=== PATIENT | female | born 1975 | race Two or more races ===

== ENCOUNTER 2017-02-16 15:58 | Emergency (ER) | payer MEDICAID ==
[~2017-02-16] VITALS: Ht 167.6 cm; Wt 111.1 kg
[2017-02-16] MEDS ORDERED: SODIUM CHLORIDE 0.9% 1,000 ML IV ONE ×3 (16:28→19:00)
[2017-02-16 16:45] LABS: Basophils # (auto) 0 uL; Basophils % (auto) 0.4 % (0.0-2.0); Eosinophils # (auto) 0.2 uL; Eosinophils % (auto) 2.9 % (0.0-7.0); Hematocrit 43.1 % (36.0-46.0); Hemoglobin 14.5 g/dL (12.2-16.2); Lymphocytes # (auto) 1.8 uL; Lymphocytes % (auto) 26.1 % (10.0-50.0); Mean Corpuscular Hemoglobin 27.7 pg (28.0-32.0); Mean Corpuscular Hgb Conc. 33.6 g/dL (32.0-36.0); Mean Corpuscular Volume 82.6 fL (80.0-100.0); Mean Platelet Volume 8.1 fL (7.4-10.4); Monocytes # (auto) 0.7 uL; Monocytes % (auto) 9.5 % (0.0-12.0); Neutrophils # (auto) 4.3 uL; Neutrophils % (auto) 61.1 % (37.0-80.0); Platelet Count (auto) 274 10^3/uL (140-450); Red Cell Distribution Width 14.5 % (11.6-16.0); White Blood Cell 7.1 10^3/uL (4.4-10.8)
[2017-02-16 17:08] LABS: Albumin 3.4 g/dL (3.4-5.0); Alkaline Phosphatase 115 U/L (45-117); Anion Gap 9 (5-15); Aspartate Aminotransferase 7 U/L (15-37); BUN/Creatinine Ratio 19.8; Bilirubin, Total 0.4 mg/dL (0.2-1.0); Blood Urea Nitrogen 18 mg/dL (7-18); Calcium 8.5 mg/dL (8.5-10.1); Carbon Dioxide 27 mmol/L (21-32); Chloride 94 mmol/L (98-107); GFR African American 89 mL/min; GFR Non-African American 73 mL/min; Potassium 4.1 mmol/L (3.5-5.1); Sodium 130 mmol/L (136-145); Total Protein 7.3 g/dL (6.4-8.2)
[2017-02-16 17:26] LABS: Glucose 662 mg/dL (74-106)
[2017-02-16] MEDS ORDERED: InsuLIN REG 1unit/0.01ml Soln (100units/ml) IV ONE (18:30)
[2017-02-16] MEDS ORDERED: MORPHINE SULF INJ 2 MG/ML SYRINGE 1ML IV PRN (18:45)
[2017-02-16] MEDS ORDERED: ACETAMINOPHEN 500 MG TAB PO PRN (18:45)
[2017-02-16] MEDS ORDERED: DEXTROSE (50%) 50ML SYRG IV PRN (18:45)
[2017-02-16] MEDS ORDERED: SODIUM CHLORIDE 0.9% 1,000 ML IV SCH (18:45)
[2017-02-16] MEDS ORDERED: LACTULOSE 20Gm/30ML SOLN PO PRN (18:45)
[2017-02-16] MEDS ORDERED: HYDROcodone-ACET 5/325MG TAB PO PRN (18:45)
[2017-02-16] MEDS ORDERED: TEMAZEPAM 15 MG CAP PO PRN (18:45)
[2017-02-16] MEDS ORDERED: PROMETHAZINE HCL 25 MG/ML 1ML IV PRN (18:45)
[2017-02-16] MEDS ORDERED: LORazepam 0.5 MG TAB PO PRN (18:45)
[2017-02-16] MEDS ORDERED: NITROGLYCERIN 0.4 MG SL TAB SL PRN (18:45)
[2017-02-16 19:27] LABS: Amylase 27 U/L (25-115)
[2017-02-16] MEDS ORDERED: ACCU-CHEK COMFORT CURVE STRIP VI SCH (20:00)
[2017-02-16] MEDS ORDERED: InsuLIN REG 1unit/0.01ml Soln (100units/ml) SC SCH (20:00)
[2017-02-16] MEDS: MORPHINE SULF INJ 2 MG/ML SYRINGE 1ML IV PRN ×2 (20:18→20:50)
[2017-02-16] MEDS ORDERED: ENOXAPARIN SOD 40 MG/0.4 ML SYRINGE SC SCH (21:00)
[2017-02-16 21:04] VITALS: BP 126/69
[2017-02-17] MEDS ORDERED: PANTOPRAZOLE 40 MG TAB PO SCH (10:00)
== END 2017-02-16 22:10 | disposition left against medical advice (07) ==
LOC: ER 16:04
DX: E11.65 Type 2 diabetes mellitus with hyperglycemia (principal); E66.9 Obesity, unspecified; Z68.35 Body mass index [BMI] 35.0-35.9, adult; G25.81 Restless legs syndrome; F12.10 Cannabis abuse, uncomplicated; J45.909 Unspecified asthma, uncomplicated; I11.0 Hypertensive heart disease with heart failure; I50.9 Heart failure, unspecified; K21.9 Gastro-esophageal reflux disease without esophagitis; R42 Dizziness and giddiness; Z79.4 Long term (current) use of insulin; Z87.442 Personal history of urinary calculi
CPT/HCPCS: 36415; 71010; 80053; 80320; 82010; 82150; 82962; 83036; 83690; 83735; 84443; 84702; 85025; 85652; 93005; 94761; 96361; 96372; 96374; 96375; 99285; J1650; J1815; J2270; J7030

== ENCOUNTER 2017-03-03 20:05 | Emergency (ER) | payer MEDICAID ==
[~2017-03-03] VITALS: Ht 167.6 cm; Wt 108.9 kg
[2017-03-03 20:22] VITALS: BP 134/96
== END 2017-03-03 22:29 | disposition left against medical advice (07) ==
LOC: ER 20:17
DX: L02.31 Cutaneous abscess of buttock (principal); R73.9 Hyperglycemia, unspecified; Z53.21 Procedure and treatment not carried out due to patient leaving prior to being seen by health care provider

== ENCOUNTER 2020-07-25 03:26 | Inpatient (IN) | payer MEDICAID ==
[~2020-07-25] VITALS: Ht 167.6 cm; Wt 102.5 kg
[~2020-07-25 03:26] MED LIST: ALBU2TAB4 PO; METF-370 PO
[2020-07-25 05:06] LABS: Urine Bacteria MOD /hpf (None Seen); Urine Blood 1+ /uL (Negative); Urine Budding Yeast FEW /hpf (None Seen); Urine Specific Gravity 1.032 (1.001-1.035); Urine WBC 40 /hpf (0 - 5)
[2020-07-25] MEDS ORDERED: KETOROLAC TROMETH 30 MG/ML 1ML VIAL IV ONE (05:30)
[2020-07-25] MEDS ORDERED: InsuLIN REG 1unit/0.01ml Soln (100units/ml) IV ONE ×2 (05:30→08:30)
[2020-07-25] MEDS ORDERED: SODIUM CHLORIDE 0.9% 1,000 ML IVB ONE (05:30)
[2020-07-25] MEDS ORDERED: FLUCONAZOLE 200MG/100ML 100 ML IV ONE (05:30)
[2020-07-25] MEDS ORDERED: LORazepam 2MG/ML-1ML VIAL IV ONE (06:00)
[2020-07-25 06:45] LABS: Basophils # (auto) 0 10 ^3/uL (0-0.2); Basophils % (auto) 0.5 % (0.0-2.0); Eosinophils # (auto) 0.2 10 ^3/uL (0-0.8); Eosinophils % (auto) 1.8 % (0.0-7.0); Hemoglobin 15.4 g/dL (12.2-16.2); Lymphocytes # (auto) 1.8 10 ^3/uL (0.4-5.4); Lymphocytes % (auto) 20.4 % (10.0-50.0); Mean Corpuscular Hemoglobin 27.4 pg (28.0-32.0); Mean Corpuscular Hgb Conc. 33.4 g/dL (32.0-36.0); Mean Corpuscular Volume 82.1 fL (80.0-100.0); Monocytes # (auto) 0.6 10 ^3/uL (0-1.3); Monocytes % (auto) 6.6 % (0.0-12.0); Neutrophils # (auto) 6.2 10 ^3/uL (1.6-8.6); Neutrophils % (auto) 70.7 % (37.0-80.0); Nucleated Red Blood Cells % 0.1 %; Platelet Count (auto) 332 10^3/uL (140-450); Red Cell Distribution Width 14.1 % (11.8-14.3); White Blood Cell 8.8 10^3/uL (4.4-10.8)
[2020-07-25 07:03] LABS: Albumin 3.4 g/dL (3.4-5.0); Calcium 8.8 mg/dL (8.5-10.1); Magnesium 2.3 mg/dL (1.6-2.6); Potassium 4.2 mmol/L (3.5-5.1)
[2020-07-25 07:05] LABS: BUN/Creatinine Ratio 22.4
[2020-07-25 07:09] LABS: Bilirubin, Total 0.4 mg/dL (0.2-1.0); Total Protein 8.2 g/dL (6.4-8.2)
[2020-07-25] MEDS ORDERED: cefTRIAXone 1GM/50ML D5W 50 ML IV ONE (08:30)
[2020-07-25] MEDS ORDERED: ACETAMINOPHEN 500 MG TAB PO PRN (09:00)
[2020-07-25] MEDS ORDERED: ONDANSETRON HCL 4 MG/2 ML VIAL IV PRN (09:00)
[2020-07-25] MEDS ORDERED: MORPHINE SULF INJ 2 MG/ML SYRINGE 1ML IV PRN (09:00)
[2020-07-25] MEDS ORDERED: DEXTROSE (50%) 50ML SYRG IV PRN (09:00)
[2020-07-25] MEDS ORDERED: HYDROcodone-ACET 5/325MG TAB PO PRN (09:00)
[2020-07-25] MEDS ORDERED: NITROGLYCERIN 0.4 MG SL TAB SL PRN (09:00)
[2020-07-25] MEDS: INSULIN LANTUS (GLARGINE) 1 /0.01ml (100units/ml) SC SCH (10:52)
[2020-07-25] MEDS: SODIUM CHLORIDE 0.9% 1,000 ML IV SCH ×2 (10:55→20:43)
[2020-07-25] MEDS: FAMOTIDINE 20 MG TAB PO SCH (10:57)
[2020-07-25] MEDS: InsuLIN REG 1unit/0.01ml Soln (100units/ml) SC SCH ×3 (13:16→20:42)
[2020-07-25] MEDS: ACCU-CHEK COMFORT CURVE STRIP VI SCH ×3 (16:00→20:42)
--- NOTE | 2020-07-25 17:06 | NUR ---
Telemetry admit from ER BRITTANY RITCHIE admitted to Telemetry unit after SBAR received. Patient oriented to Preeti Lazaro, primary RN, unit, room, bed, and unit policies regarding patient care and visiting hours. Patient weighed by bedscale and encouraged to call if they need something. She is A & O x4, sleepy at this time. Patient states that she has "vaginal pain". Will medicate per orders. All questions and concerns addressed, patient verbalized understanding. Bed is in lowest, locked position call light in reach.
--- NOTE | 2020-07-25 19:06 | NUR ---
Opening Shift Note Assumed care of patient after receiving report. Patient is asleep, aroused to name and light shaking, alert with no S/S of distress or SOB, c/o pain in vaginal area, will medicate according to MD orders.. Call light within reach, HOB semi fowlers, bed in lowest locked position x2 side rails. Instructed on POC and to call for assist PRN, will continue to monitor for changes Q1hr and PRN.
[2020-07-25] MEDS: MORPHINE SULF INJ 2 MG/ML SYRINGE 1ML IV PRN (20:43)
[2020-07-25 22:00] VITALS: BP 115/70
[2020-07-26] MEDS: ACCU-CHEK COMFORT CURVE STRIP VI SCH ×7 (00:25→23:32)
[2020-07-26] MEDS: InsuLIN REG 1unit/0.01ml Soln (100units/ml) SC SCH ×7 (00:28→23:38)
--- NOTE | 2020-07-26 01:00 | NUR ---
Scheduled IVF not given at this time, current bag still being administered with approximately 600 ml remaining. Addendum: 07/26/20 at 0445 by Janel More RN IVF administered at this time.
[2020-07-26] MEDS: MORPHINE SULF INJ 2 MG/ML SYRINGE 1ML IV PRN ×5 (04:00→23:15)
--- NOTE | 2020-07-26 04:00 | NUR ---
Pain Patient c/o pain in vaginal area, burning and itching sensation. Will medicate as ordered. Gave ice pack to help alleviate irritation.
[2020-07-26] MEDS: SODIUM CHLORIDE 0.9% 1,000 ML IV SCH ×3 (04:39→18:41)
[2020-07-26 05:00] VITALS: BP 96/63
--- NOTE | 2020-07-26 07:55 | NUR ---
Opening Note Assumed care of patient, she is A & O x4, no s/s of distress, complaints of vaginal pain 05/08 with burning sensation. Patient states "I drove myself here yesterday." Patient acknowledges that she has not been taking care of her diabetes. She says she leaves the hospital and is never given insulin or medication for her diabetes. Will communicate to MD. Will continue to monitor and medicate per orders.
[2020-07-26 09:00] VITALS: BP 102/64
[2020-07-26] MEDS: cefTRIAXone 1GM/50ML D5W 50 ML IV SCH (10:09)
[2020-07-26] MEDS: FAMOTIDINE 20 MG TAB PO SCH (10:09)
[2020-07-26] MEDS: FLUCONAZOLE 100 MG TAB PO SCH (10:09)
[2020-07-26] MEDS: INSULIN LANTUS (GLARGINE) 1 /0.01ml (100units/ml) SC SCH (10:17)
--- NOTE | 2020-07-26 10:20 | NUR ---
Patient insistent on extra food and snacks. Patient educated regarding blood sugar management and she states "I have yasmani, I don't need medicine," educated patient regarding vaginal yeast infection and correlation with blood sugar management. Patient has no motivation to understand disease. Patient states "my sugars are normally in the 600's all the time, you said it was in the 200s, I need some food, I need snacks." Will feed patient as insisted, will continue to monitor blood glucose.
[2020-07-26] MEDS: metFORMIN HYDROCHLORIDE 500 MG TAB PO SCH (10:48)
[2020-07-26 11:00] LABS: Calcium 8.1 mg/dL (8.5-10.1); Potassium 4.7 mmol/L (3.5-5.1)
[2020-07-26 11:18] LABS: BUN/Creatinine Ratio 46.2
[2020-07-26 13:00] VITALS: BP 108/71
[2020-07-26 16:43] VITALS: BP 105/76
--- NOTE | 2020-07-26 19:00 | NUR ---
Opening Shift Note Assumed care of patient after receiving report from day RN. Patient is awake and alert, resting in bed comfortably with no S/S of distress/SOB or pain. Call light within reach, bed in lowest locked position x2 side rails up for safety. Instructed on POC and to call for assist PRN, will continue to monitor for changes Q1hr and PRN.
--- NOTE | 2020-07-26 20:22 | NUR ---
Patient education RE food and BS Patient insistent on receiving additional food/snacks, requesting milk and crackers, stating she is still hungry even after eating dinner tray. Patient educated on diabetic diet and food choices that affect blood glucose. Patient stated that her "sugar is fine, its better than what it usually is, cant I just have some crackers". Patient educated that these food items she is requesting will increase her blood glucose and as a result of her uncontrolled glucose, she is experiencing vaginal discomfort. Patient still insistent on receiving extra food and stated "well what am I supposed to do if Im hungry", patient given turkey sandwich. Will continue to educate and monitor blood glucose.
[2020-07-26 22:00] VITALS: BP 91/68
[2020-07-26 23:00] VITALS: BP 118/68
[2020-07-27] VITALS (7 sets, daily range): BP systolic 103–113; BP diastolic 66–77
[2020-07-27] MEDS: SODIUM CHLORIDE 0.9% 1,000 ML IV SCH ×3 (00:37→13:34)
[2020-07-27] MEDS: MORPHINE SULF INJ 2 MG/ML SYRINGE 1ML IV PRN ×4 (03:24→20:24)
[2020-07-27] MEDS: ACCU-CHEK COMFORT CURVE STRIP VI SCH ×6 (03:55→23:45)
[2020-07-27] MEDS: InsuLIN REG 1unit/0.01ml Soln (100units/ml) SC SCH ×6 (04:00→23:52)
[2020-07-27 06:37] LABS: Basophils # (auto) 0 10 ^3/uL (0-0.2); Basophils % (auto) 0.5 % (0.0-2.0); Eosinophils # (auto) 0.3 10 ^3/uL (0-0.8); Eosinophils % (auto) 4.5 % (0.0-7.0); Hematocrit 41.2 % (36.0-46.0); Hemoglobin 13.7 g/dL (12.2-16.2); Lymphocytes % (auto) 26.7 % (10.0-50.0); Mean Corpuscular Hemoglobin 27.2 pg (28.0-32.0); Mean Corpuscular Hgb Conc. 33.1 g/dL (32.0-36.0); Monocytes # (auto) 0.5 10 ^3/uL (0-1.3); Monocytes % (auto) 6.7 % (0.0-12.0); Neutrophils # (auto) 4.6 10 ^3/uL (1.6-8.6); Neutrophils % (auto) 61.6 % (37.0-80.0); Nucleated Red Blood Cells % 0.1 %; Platelet Count (auto) 270 10^3/uL (140-450); Red Blood Cells 5.02 10^6/uL (4.0-5.20); Red Cell Distribution Width 13.8 % (11.8-14.3); White Blood Cell 7.5 10^3/uL (4.4-10.8)
[2020-07-27 06:53] LABS: Potassium 3.9 mmol/L (3.5-5.1)
[2020-07-27 07:01] LABS: BUN/Creatinine Ratio 46.3
[2020-07-27 07:02] LABS: Albumin 2.4 g/dL (3.4-5.0); Bilirubin, Total 0.3 mg/dL (0.2-1.0); Calcium 8.2 mg/dL (8.5-10.1); Magnesium 2.2 mg/dL (1.6-2.6); Total Protein 5.9 g/dL (6.4-8.2)
[2020-07-27] MEDS: cefTRIAXone 1GM/50ML D5W 50 ML IV SCH (08:41)
[2020-07-27] MEDS: PHENAZOPYRIDINE HCL 100 MG TAB PO SCH ×2 (10:23→21:56)
[2020-07-27] MEDS: FLUCONAZOLE 100 MG TAB PO SCH (10:23)
[2020-07-27] MEDS: FAMOTIDINE 20 MG TAB PO SCH (10:24)
[2020-07-27] MEDS: metFORMIN HYDROCHLORIDE 500 MG TAB PO SCH (10:24)
[2020-07-27] MEDS: INSULIN LANTUS (GLARGINE) 1 /0.01ml (100units/ml) SC SCH (11:45)
--- NOTE | 2020-07-27 19:15 | NUR ---
Opening Shift Note Assumed care of patient from day shift RN, patient awake and alert and oriented x4. No S/S of distress/SOB or pain. Instructed on POC and to call for assist PRN, safety measures in place call light with in reach, bed in lowest position side rails up x2 will continue to monitor for changes Q1hr and PRN.
[2020-07-27] MEDS ORDERED: MORPHINE SULF INJ 2 MG/ML SYRINGE 1ML ONE (20:19)
[2020-07-28] MEDS ORDERED: MORPHINE SULF INJ 2 MG/ML SYRINGE 1ML ONE (00:30)
[2020-07-28] MEDS: MORPHINE SULF INJ 2 MG/ML SYRINGE 1ML IV PRN ×3 (00:33→11:30)
[2020-07-28] MEDS: SODIUM CHLORIDE 0.9% 1,000 ML IV SCH ×2 (01:00→12:03)
[2020-07-28] MEDS: ACCU-CHEK COMFORT CURVE STRIP VI SCH ×3 (04:05→11:55)
[2020-07-28] MEDS: InsuLIN REG 1unit/0.01ml Soln (100units/ml) SC SCH ×3 (04:07→11:58)
[2020-07-28 05:00] VITALS: BP 104/69
[2020-07-28 07:25] LABS: Potassium 3.7 mmol/L (3.5-5.1)
[2020-07-28 08:00] VITALS: BP 104/70
[2020-07-28] MEDS: cefTRIAXone 1GM/50ML D5W 50 ML IV SCH (08:37)
[2020-07-28 08:42] VITALS: BP 104/70
[2020-07-28] MEDS: FAMOTIDINE 20 MG TAB PO SCH (10:18)
[2020-07-28] MEDS: FLUCONAZOLE 100 MG TAB PO SCH (10:18)
[2020-07-28] MEDS: PHENAZOPYRIDINE HCL 100 MG TAB PO SCH (10:18)
[2020-07-28] MEDS: metFORMIN HYDROCHLORIDE 500 MG TAB PO SCH (10:19)
[2020-07-28] MEDS: INSULIN LANTUS (GLARGINE) 1 /0.01ml (100units/ml) SC SCH (11:53)
--- NOTE | 2020-07-28 12:24 | NUR ---
MD AT BEDSIDE DR. GREEN WAS IN TO SEE PATIENT AND MD LEFT ORDER FOR PATIENT'S DISCHARGE HOME. PRESCRIPTIONS WERE LEFT BY MD IN PATIENT'S CHART.
[2020-07-28 13:00] VITALS: BP 94/59
[2020-07-28 13:31] VITALS: BP 104/70
--- NOTE | 2020-07-28 14:10 | NUR ---
Assessment The patient is a 45-year-old female, who is alert and oriented. Patient cognitive abilities are intact. Patient stated that she can do all ADLs independently. Patient stated that prior to admission to [facility], patient ambulated independently. Patient stated that she is unemployed and receive government assistance as income. Patient stated that she lives with her daughter Mayela ([phone]). Patient stated that she will return home, patient stated that she has available transportation post discharge. Patient stated that her daughter is her support system. Patient is receptive to receive resources on Advance Directive and POA. Discharge planning: will provide information to patient on Advance Directive and POA. Patient has no post discharge needs identified. Addendum: 07/28/20 at 1410 by MOR BRAVO Amended: Links added.
--- NOTE | 2020-07-28 15:30 | NUR ---
Discharge instructions and prescriptions given as ordered. Encourage to follow up with PMD as instructed. All questions and concerns addressed. Patient verbalized understanding. Medication reconciliation form completed and copy given to patient. IV removed with catheter intact, pressure dressing applied. Patient taken to vehicle via wheelchair with all personal belongings, accompanied by staff and patient's friend. No distress noted at time of departure.
== END 2020-07-28 15:40 | disposition home or self-care (01) | DRG 463 ==
LOC: ER 03:33 → OVERFLOW 03:34 → WEST WING 17:06
PROVIDERS: ADMIT Nurse Practitioner Acute Care; ATTEND Internal Medicine
DX: N30.90 Cystitis, unspecified without hematuria (principal); E43 Unspecified severe protein-calorie malnutrition; E11.65 Type 2 diabetes mellitus with hyperglycemia; E66.01 Morbid (severe) obesity due to excess calories; E88.09 Other disorders of plasma-protein metabolism, not elsewhere classified; I50.9 Heart failure, unspecified; Z91.19 Patient's noncompliance with other medical treatment and regimen; K21.9 Gastro-esophageal reflux disease without esophagitis; F17.210 Nicotine dependence, cigarettes, uncomplicated; N76.0 Acute vaginitis; Z68.36 Body mass index [BMI] 36.0-36.9, adult; Z88.8 Allergy status to other drugs, medicaments and biological substances; Z90.49 Acquired absence of other specified parts of digestive tract; Z98.51 Tubal ligation status; Z83.3 Family history of diabetes mellitus
CPT/HCPCS: 36415; 80048; 80053; 81001; 82010; 82962; 83036; 83735; 85025; 87086; G0378; J0696; J1450; J1815; J1885

== ENCOUNTER 2023-10-12 18:59 | Inpatient (IN) | payer MEDICAID ==
[~2023-10-12] VITALS: Ht 167.6 cm; Wt 144.5 kg
[~2023-10-12 18:59] MED LIST changes: +ALBU2TAB11 PO; -ALBU2TAB4 PO
[2023-10-12 20:00] LABS: Basophils # (auto) 0 10 ^3/uL (0-0.2); Basophils % (auto) 0.1 % (0.0-2.0); Eosinophils # (auto) 0 10 ^3/uL (0-0.8); Hematocrit 38.3 % (36.0-46.0); Hemoglobin 11.8 g/dL (12.2-16.2); Lymphocytes # (auto) 0.7 10 ^3/uL (0.4-5.4); Lymphocytes % (auto) 3.5 % (10.0-50.0); Mean Corpuscular Hemoglobin 26.1 pg (28.0-32.0); Mean Corpuscular Hgb Conc. 30.8 g/dL (32.0-36.0); Mean Corpuscular Volume 84.9 fL (80.0-100.0); Monocytes # (auto) 0.7 10 ^3/uL (0-1.3); Neutrophils % (auto) 92.4 % (37.0-80.0); Red Blood Cells 4.51 10^6/uL (4.0-5.20); White Blood Cell 18.4 10^3/uL (4.4-10.8)
[2023-10-12 20:13] LABS: INR 1.02 (0.9-1.15); Partial Thromboplastin Time 26.8 SEC (24.5-34.5); Prothrombin Time 10.7 sec (9.3-11.8)
[2023-10-12 20:29] LABS: Alanine Aminotransferase 23 U/L (7-40); Albumin 3.9 g/dL (3.2-4.8); Alkaline Phosphatase 180 U/L (46-116); Anion Gap 11 (5-15); Aspartate Aminotransferase 45 U/L (13-40); BUN/Creatinine Ratio 12.3 (10.0-20.0); Blood Urea Nitrogen 30 mg/dL (9-23); Calcium 8.7 mg/dL (8.7-10.4); Carbon Dioxide 19 mmol/L (20-30); Chloride 92 mmol/L (98-107); Magnesium 1.9 mg/dL (1.6-2.6); Potassium 5.1 mmol/L (3.5-5.1); Sodium 122 mmol/L (136-145)
[2023-10-12 20:30] LABS: Bilirubin, Total 0.4 mg/dL (0.2-1.0); Total Protein 7.3 g/dL (5.7-8.2)
[2023-10-12 20:40] LABS: Glucose 831 mg/dL (74-106)
[2023-10-12] MEDS ORDERED: PIPERACILLIN-TAZOB 3.375GM 100 ML IV ONE (21:45)
[2023-10-12] MEDS ORDERED: DEXTROSE (50%) 50ML SYRG IV PRN ×2 (21:45→23:15)
[2023-10-12 22:18] LABS: Phosphorus 3.8 mg/dL (2.4-5.1)
[2023-10-12 22:24] LABS: Base Excess -5.3 mmol/L (-2.0-2.0)
[2023-10-12 22:49] LABS: Carbon Dioxide 13 mmol/L (20-30)
[2023-10-12 22:50] LABS: Calcium 8.8 mg/dL (8.7-10.4)
[2023-10-12] MEDS: SODIUM CHLORIDE 0.9% 1,000 ML IV SCH (23:07)
[2023-10-12 23:09] LABS: Anion Gap 14 (5-15); BUN/Creatinine Ratio 8.2 (10.0-20.0); Blood Urea Nitrogen 20 mg/dL (9-23); Chloride 92 mmol/L (98-107); Potassium 5.4 mmol/L (3.5-5.1)
[2023-10-12] MEDS: ATORVASTATIN 20 MG TAB PO SCH (23:11)
[2023-10-12 23:13] LABS: Lactic Acid w/Reflex 2.4 mmol/L (0.4-2.0)
[2023-10-12 23:14] LABS: Glucose 841 mg/dL (74-106); Sodium 119 mmol/L (136-145)
[2023-10-12] MEDS ORDERED: GABAPENTIN 300 MG CAP PO ONE (23:15)
[2023-10-12] MEDS ORDERED: VANCOMYCIN PER PHARMACY 0 MG IV SCH (23:15)
[2023-10-12] MEDS ORDERED: MAALOX PLUS or MAALOX 30 ML PO PRN (23:15)
[2023-10-12] MEDS ORDERED: DOCUSATE SOD 100 MG CAP PO PRN (23:15)
[2023-10-12] MEDS ORDERED: TEMAZEPAM 15 MG CAP PO PRN (23:15)
[2023-10-12] MEDS ORDERED: ACETAMINOPHEN 325 MG TAB PO PRN (23:15)
[2023-10-13] VITALS: PULSE 103; RESP 18; O2SAT 91
[2023-10-13] MEDS ORDERED: VANCOMYCIN 1GM/200ML 200 ML IV SCH
[2023-10-13] MEDS: HYDROmorphone HCL 2 MG/ML VL/or syr IV PRN (00:20)
[2023-10-13] MEDS: ONDANSETRON HCL 4 MG/2 ML VIAL IV PRN ×2 (00:20→19:39)
[2023-10-13] MEDS: ACCU-CHEK COMFORT CURVE STRIP VI SCH ×18 (00:36→22:37)
[2023-10-13] MEDS: InsuLIN REG 1unit/0.01ml Soln (100units/ml) SC SCH ×6 (00:48→20:00)
[2023-10-13] MEDS ORDERED: SODIUM CHLORIDE 0.9% 1,000 ML IV SCH (01:45)
[2023-10-13] MEDS: LORazepam 0.5 MG TAB PO PRN (03:52)
[2023-10-13] MEDS: HYDROcodone-ACET 5/325MG TAB PO PRN ×2 (03:52→09:59)
[2023-10-13 04:52] LABS: Urine Epithelial Cast None Seen /hpf (<5)
[2023-10-13 04:54] LABS: Basophils # (auto) 0 10 ^3/uL (0-0.2); Basophils % (auto) 0.2 % (0.0-2.0); Eosinophils # (auto) 0 10 ^3/uL (0-0.8); Hemoglobin 11.4 g/dL (12.2-16.2); Lymphocytes # (auto) 0.6 10 ^3/uL (0.4-5.4); Nucleated Red Blood Cells % 0.1 %; White Blood Cell 13.1 10^3/uL (4.4-10.8)
[2023-10-13] MEDS: SODIUM CHLORIDE 0.9% 1,000 ML IV SCH ×4 (04:55→17:50)
[2023-10-13 04:56] LABS: Lymphocytes % (auto) 4.5 % (10.0-50.0); Mean Corpuscular Hemoglobin 26.8 pg (28.0-32.0); Mean Corpuscular Hgb Conc. 30.9 g/dL (32.0-36.0); Mean Corpuscular Volume 86.8 fL (80.0-100.0); Monocytes # (auto) 0.5 10 ^3/uL (0-1.3); Monocytes % (auto) 3.8 % (0.0-12.0); Neutrophils % (auto) 91.5 % (37.0-80.0); Red Blood Cells 4.27 10^6/uL (4.0-5.20); Red Cell Distribution Width 14.9 % (11.8-14.3)
[2023-10-13 05:03] LABS: Chloride 90 mmol/L (98-107); Sodium 120 mmol/L (136-145)
[2023-10-13 05:04] LABS: Anion Gap 9 (5-15); Carbon Dioxide 21 mmol/L (20-30)
[2023-10-13 05:05] LABS: Calcium 8.7 mg/dL (8.7-10.4)
[2023-10-13 05:09] LABS: BUN/Creatinine Ratio 12.2 (10.0-20.0)
[2023-10-13 05:13] LABS: Amphetamine Screen, Urine Pos (NEGATIVE); Barbiturate Scree,Urine Neg (NEGATIVE); Benzodiazephine Screen, Urine Neg (NEGATIVE); Cocaine Screen, Urine Neg (NEGATIVE)
[2023-10-13 05:14] LABS: Cannabinoid Screen, Urine Neg (NEGATIVE); Opiate Scree,Urine Neg (NEGATIVE); Phencyclidine Screen, Urine Neg (NEGATIVE)
[2023-10-13 05:26] LABS: Blood Urea Nitrogen 33 mg/dL (9-23)
[2023-10-13 05:27] LABS: Glucose 808 mg/dL (74-106)
[2023-10-13 05:38] LABS: Triglycerides 205 mg/dL (< 150)
[2023-10-13 05:39] LABS: LDL Cholesterol 53 mg/dL (< 100)
[2023-10-13 05:40] LABS: Cholesterol 117 mg/dL (< 200); HDL Cholesterol 28 mg/dL (40-59)
[2023-10-13] MEDS ORDERED: INSULIN DRIP 100 UNIT/100ML 100 ML IV SCH (05:45)
[2023-10-13] MEDS ORDERED: INSULIN LANTUS (GLARGINE) 1 /0.01ml (100units/ml) SC ONE (05:45)
[2023-10-13] MEDS ORDERED: DEXTROSE (50%) 50ML SYRG IV PRN (05:45)
[2023-10-13] MEDS ORDERED: PIPERACILLIN-TAZO 4.5GM 100 ML IV SCH (06:00)
[2023-10-13] MEDS: FUROSEMIDE 40 MG TAB PO SCH ×2 (06:00→18:00)
[2023-10-13 06:03] LABS: Urine Amorphous Crystal FEW /hpf (None Seen); Urine Bacteria NONE SEEN /hpf (None Seen); Urine Blood 2+ /uL (Negative); Urine Clarity Clear (Clear); Urine Color Colorless (Yellow); Urine Protein, UAD 1+ (Negative); Urine Specific Gravity 1.021 (1.001-1.035); Urine Urobilinogen Normal (Negative); Urine WBC 1 /hpf (0 - 5)
[2023-10-13] MEDS: PIPERACILLIN-TAZOB 3.375GM 100 ML IV SCH ×4 (08:38→23:36)
[2023-10-13] MEDS: CARVEDILOL 12.5 MG TAB PO SCH ×2 (09:55→22:00)
[2023-10-13] MEDS: EMPAGLIFLOZIN 10 MG TAB PO SCH (09:56)
[2023-10-13] MEDS: ASPirin 325 MG TAB PO SCH (09:56)
[2023-10-13] MEDS: SACUBITRIL-VALSARTAN 24mg/26mg TAB PO SCH ×2 (09:56→22:47)
[2023-10-13] MEDS: INSULIN LANTUS (GLARGINE) 1 /0.01ml (100units/ml) SC SCH (09:59)
[2023-10-13] MEDS ORDERED: LISINOPRIL 20 MG TAB PO SCH (10:00)
[2023-10-13 10:20] LABS: Alanine Aminotransferase 37 U/L (7-40); Albumin 3.5 g/dL (3.2-4.8); Alkaline Phosphatase 141 U/L (46-116); Anion Gap 10 (5-15); Aspartate Aminotransferase 93 U/L (13-40); Blood Urea Nitrogen 33 mg/dL (9-23); Calcium 8.3 mg/dL (8.5-10.1); Carbon Dioxide 21 mmol/L (20-30); Chloride 98 mmol/L (98-107); Glucose 341 mg/dL (74-106); Potassium 4.7 mmol/L (3.5-5.1)
[2023-10-13 10:21] LABS: Bilirubin, Total 0.3 mg/dL (0.2-1.0); Sodium 129 mmol/L (136-145); Total Protein 6.5 g/dL (5.7-8.2)
[2023-10-13] MEDS ORDERED: NOREPINEPHRINE 8 MG/250ML KIT 250 ML IV ONE (12:30)
[2023-10-13] MEDS: NOREPINEPHRINE 8 MG/250ML KIT 250 ML IV SCH (12:39)
[2023-10-13 16:04] LABS: Chloride 102 mmol/L (98-107); Potassium 4.5 mmol/L (3.5-5.1); Sodium 131 mmol/L (136-145)
[2023-10-13 16:05] LABS: Anion Gap 9 (5-15); Carbon Dioxide 20 mmol/L (20-30)
[2023-10-13 16:10] LABS: Glucose 215 mg/dL (74-106)
[2023-10-13 16:11] LABS: BUN/Creatinine Ratio 13.5 (10.0-20.0); Blood Urea Nitrogen 34 mg/dL (9-23)
[2023-10-13] MEDS: MORPHINE SULFATE INJ 2 MG/ml SYRG IV PRN (19:40)
[2023-10-13 19:45] VITALS: PULSE 91; RESP 13; O2SAT 95
[2023-10-13] MEDS: ATORVASTATIN 20 MG TAB PO SCH ×2 (22:46→22:47)
[2023-10-14] MEDS: SODIUM CHLORIDE 0.9% 1,000 ML IV SCH ×5 (00:01→19:45)
[2023-10-14] MEDS: ONDANSETRON HCL 4 MG/2 ML VIAL IV PRN ×3 (00:04→21:17)
[2023-10-14] MEDS: MORPHINE SULFATE INJ 2 MG/ml SYRG IV PRN ×3 (00:05→21:18)
[2023-10-14] MEDS: ACCU-CHEK COMFORT CURVE STRIP VI SCH ×14 (00:05→22:53)
[2023-10-14] MEDS: HYDROcodone-ACET 5/325MG TAB PO PRN (01:40)
[2023-10-14] MEDS ORDERED: INSULIN DRIP 100 UNIT/100ML 100 ML IV SCH ×2 (05:00→18:00)
[2023-10-14] MEDS: PIPERACILLIN-TAZOB 3.375GM 100 ML IV SCH (07:00)
[2023-10-14] MEDS: FUROSEMIDE 40 MG TAB PO SCH ×2 (07:00→18:43)
[2023-10-14 07:30] VITALS: PULSE 82; RESP 12; O2SAT 96
[2023-10-14 08:38] LABS: Basophils # (auto) 0.1 10 ^3/uL (0-0.2); Basophils % (auto) 0.4 % (0.0-2.0); Eosinophils # (auto) 0 10 ^3/uL (0-0.8); Eosinophils % (auto) 0.1 % (0.0-7.0); Hematocrit 32.2 % (36.0-46.0); Lymphocytes # (auto) 1.5 10 ^3/uL (0.4-5.4); Lymphocytes % (auto) 9.9 % (10.0-50.0); Mean Corpuscular Hemoglobin 25.9 pg (28.0-32.0); Mean Corpuscular Hgb Conc. 31.1 g/dL (32.0-36.0); Mean Corpuscular Volume 83.3 fL (80.0-100.0); Monocytes # (auto) 0.6 10 ^3/uL (0-1.3); Monocytes % (auto) 4.1 % (0.0-12.0); Neutrophils # (auto) 12.8 10 ^3/uL (1.6-8.6); Neutrophils % (auto) 85.5 % (37.0-80.0); Red Blood Cells 3.86 10^6/uL (4.0-5.20); Red Cell Distribution Width 14.7 % (11.8-14.3)
[2023-10-14 08:52] LABS: Chloride 105 mmol/L (98-107); Potassium 4.2 mmol/L (3.5-5.1); Sodium 132 mmol/L (136-145)
[2023-10-14 08:53] LABS: Anion Gap 10 (5-15); Calcium 7.8 mg/dL (8.5-10.1); Carbon Dioxide 17 mmol/L (20-30)
[2023-10-14 08:58] LABS: BUN/Creatinine Ratio 13.3 (10.0-20.0); Blood Urea Nitrogen 36 mg/dL (9-23); Glucose 258 mg/dL (74-106)
[2023-10-14] MEDS ORDERED: VANCOMYCIN 1GM/200ML 200 ML IV ONE (09:00)
[2023-10-14] MEDS: INSULIN LANTUS (GLARGINE) 1 /0.01ml (100units/ml) SC SCH ×3 (10:00→23:00)
[2023-10-14] MEDS: EMPAGLIFLOZIN 10 MG TAB PO SCH (10:28)
[2023-10-14] MEDS: CARVEDILOL 12.5 MG TAB PO SCH ×2 (10:28→22:58)
[2023-10-14] MEDS: ASPirin 325 MG TAB PO SCH (10:28)
[2023-10-14] MEDS: SACUBITRIL-VALSARTAN 24mg/26mg TAB PO SCH ×2 (10:31→22:59)
[2023-10-14] MEDS: HYDROmorphone HCL 2 MG/ML VL/or syr IV PRN (11:09)
[2023-10-14] MEDS ORDERED: LIDOCAINE 1% (LOCAL ANESTH.) PF 5ml SDV ID ONE (12:00)
[2023-10-14] MEDS: CEFEPIME 1GM/ 50ML 50 ML IV SCH (14:44)
[2023-10-14] MEDS: NOREPINEPHRINE 8 MG/250ML KIT 250 ML IV SCH (16:04)
[2023-10-14] MEDS: LORazepam 0.5 MG TAB PO PRN (16:34)
[2023-10-14] MEDS ORDERED: DEXTROSE (50%) 50ML SYRG IV PRN (18:00)
[2023-10-14] MEDS: SODIUM CHLOR 0.9% PF (SALINE LOCK) 10ML VIAL/SYR IV SCH (22:41)
[2023-10-14] MEDS: ATORVASTATIN 20 MG TAB PO SCH (22:57)
[2023-10-14] MEDS: InsuLIN REG 1unit/0.01ml Soln (100units/ml) SC SCH (22:59)
[2023-10-15] MEDS: HYDROmorphone HCL 2 MG/ML VL/or syr IV PRN ×4 (00:35→23:24)
[2023-10-15] MEDS: CEFEPIME 1GM/ 50ML 50 ML IV SCH ×2 (02:56→14:48)
[2023-10-15] MEDS: NOREPINEPHRINE 8 MG/250ML KIT 250 ML IV SCH (05:01)
[2023-10-15] MEDS: FUROSEMIDE 40 MG TAB PO SCH ×2 (07:00→18:37)
[2023-10-15] MEDS: InsuLIN REG 1unit/0.01ml Soln (100units/ml) SC SCH ×4 (07:00→22:01)
[2023-10-15] MEDS: MORPHINE SULFATE INJ 2 MG/ml SYRG IV PRN (07:08)
[2023-10-15] MEDS: ACCU-CHEK COMFORT CURVE STRIP VI SCH ×4 (07:12→22:02)
[2023-10-15] MEDS: SODIUM CHLORIDE 0.9% 1,000 ML IV SCH ×4 (07:35→22:32)
[2023-10-15 08:30] VITALS: PULSE 76; RESP 14; O2SAT 94
[2023-10-15] MEDS: ONDANSETRON HCL 4 MG/2 ML VIAL IV PRN ×2 (09:32→16:50)
[2023-10-15] MEDS: SODIUM CHLOR 0.9% PF (SALINE LOCK) 10ML VIAL/SYR IV SCH ×2 (10:00→21:36)
[2023-10-15] MEDS: INSULIN LANTUS (GLARGINE) 1 /0.01ml (100units/ml) SC SCH ×2 (11:04→22:00)
[2023-10-15] MEDS: CARVEDILOL 12.5 MG TAB PO SCH ×2 (11:05→22:02)
[2023-10-15] MEDS: ASPirin 325 MG TAB PO SCH (11:05)
[2023-10-15] MEDS: EMPAGLIFLOZIN 10 MG TAB PO SCH (11:05)
[2023-10-15] MEDS: SACUBITRIL-VALSARTAN 24mg/26mg TAB PO SCH ×2 (11:06→22:01)
[2023-10-15] MEDS ORDERED: diphenhdrAMINE HCL 50 MG/1 ML VL ONE (14:46)
[2023-10-15] MEDS: diphenhdrAMINE HCL 50 MG/1 ML VL IV PRN (14:49)
[2023-10-15] MEDS: GABAPENTIN 300 MG CAP PO SCH ×2 (14:49→22:01)
[2023-10-15 19:30] VITALS: PULSE 76; RESP 15; O2SAT 99
[2023-10-15] MEDS: HYDROcodone-ACET 5/325MG TAB PO PRN (20:05)
[2023-10-15] MEDS: ATORVASTATIN 20 MG TAB PO SCH (22:01)
[2023-10-16] MEDS: CEFEPIME 1GM/ 50ML 50 ML IV SCH ×2 (01:44→17:18)
[2023-10-16] MEDS: NOREPINEPHRINE 8 MG/250ML KIT 250 ML IV SCH (01:50)
[2023-10-16] MEDS: HYDROmorphone HCL 2 MG/ML VL/or syr IV PRN (04:03)
[2023-10-16] MEDS: SODIUM CHLORIDE 0.9% 1,000 ML IV SCH ×3 (05:05→18:11)
[2023-10-16] MEDS: GABAPENTIN 300 MG CAP PO SCH ×3 (06:11→22:32)
[2023-10-16] MEDS: FUROSEMIDE 40 MG TAB PO SCH ×2 (06:11→17:39)
[2023-10-16] MEDS: ACCU-CHEK COMFORT CURVE STRIP VI SCH ×4 (06:46→21:48)
[2023-10-16] MEDS: HYDROcodone-ACET 5/325MG TAB PO PRN ×2 (06:46→14:18)
[2023-10-16] MEDS: InsuLIN REG 1unit/0.01ml Soln (100units/ml) SC SCH ×4 (06:47→22:43)
[2023-10-16 07:30] VITALS: PULSE 72; RESP 17; O2SAT 100
[2023-10-16] MEDS: MORPHINE SULFATE INJ 2 MG/ml SYRG IV PRN ×2 (08:39→18:12)
[2023-10-16] MEDS: ASPirin 325 MG TAB PO SCH (10:15)
[2023-10-16] MEDS: INSULIN LANTUS (GLARGINE) 1 /0.01ml (100units/ml) SC SCH ×2 (10:15→22:39)
[2023-10-16] MEDS: CARVEDILOL 12.5 MG TAB PO SCH ×2 (10:15→22:28)
[2023-10-16] MEDS: EMPAGLIFLOZIN 10 MG TAB PO SCH (10:15)
[2023-10-16] MEDS: SODIUM CHLOR 0.9% PF (SALINE LOCK) 10ML VIAL/SYR IV SCH ×3 (10:38→22:30)
[2023-10-16] MEDS ORDERED: NALOXONE HCL 1MG/ML 2ML SYRINGE ONE ×2 (11:17→11:22)
[2023-10-16] MEDS: SACUBITRIL-VALSARTAN 24mg/26mg TAB PO SCH ×2 (11:49→22:32)
[2023-10-16] MEDS ORDERED: NALOXONE HCL 1MG/ML 2ML SYRINGE IV ONE ×2 (12:00)
[2023-10-16 12:03] LABS: Basophils # (auto) 0 10 ^3/uL (0-0.2); Eosinophils # (auto) 0.1 10 ^3/uL (0-0.8); Hematocrit 27.9 % (36.0-46.0); Hemoglobin 8.9 g/dL (12.2-16.2); Mean Corpuscular Volume 82.5 fL (80.0-100.0); Neutrophils # (auto) 6.8 10 ^3/uL (1.6-8.6)
[2023-10-16 12:05] LABS: Basophils % (auto) 0.3 % (0.0-2.0); Lymphocytes # (auto) 1.2 10 ^3/uL (0.4-5.4); Lymphocytes % (auto) 12.8 % (10.0-50.0); Mean Corpuscular Hemoglobin 26.3 pg (28.0-32.0); Mean Corpuscular Hgb Conc. 31.9 g/dL (32.0-36.0); Monocytes # (auto) 0.9 10 ^3/uL (0-1.3); Monocytes % (auto) 10.1 % (0.0-12.0); Neutrophils % (auto) 75.8 % (37.0-80.0); Nucleated Red Blood Cells % 0.2 %; Red Blood Cells 3.38 10^6/uL (4.0-5.20); Red Cell Distribution Width 14.7 % (11.8-14.3)
[2023-10-16 12:17] LABS: INR 0.97 (0.9-1.15); Prothrombin Time 10.2 sec (9.3-11.8)
[2023-10-16] MEDS: LORazepam 0.5 MG TAB PO PRN (16:04)
[2023-10-16] MEDS ORDERED: LIDOCAINE 1% (LOCAL ANESTH.) PF 5ml SDV ID ONE (16:45)
[2023-10-16 19:48] VITALS: PULSE 75; RESP 15; O2SAT 96
[2023-10-16] MEDS: ATORVASTATIN 20 MG TAB PO SCH (22:32)
[2023-10-17] MEDS: SODIUM CHLORIDE 0.9% 1,000 ML IV SCH ×2 (00:58→07:45)
[2023-10-17] MEDS: MORPHINE SULFATE INJ 2 MG/ml SYRG IV PRN ×2 (01:30→22:19)
[2023-10-17] MEDS: diphenhdrAMINE HCL 50 MG/1 ML VL IV PRN ×6 (01:30→22:18)
[2023-10-17] MEDS: CEFEPIME 1GM/ 50ML 50 ML IV SCH ×2 (02:53→12:00)
[2023-10-17] MEDS: FUROSEMIDE 40 MG TAB PO SCH ×2 (06:00→18:00)
[2023-10-17 06:44] LABS: Basophils # (auto) 0 10 ^3/uL (0-0.2); Eosinophils # (auto) 0.3 10 ^3/uL (0-0.8); Lymphocytes # (auto) 1.2 10 ^3/uL (0.4-5.4); Monocytes # (auto) 0.8 10 ^3/uL (0-1.3); Monocytes % (auto) 9.7 % (0.0-12.0); Neutrophils # (auto) 6.3 10 ^3/uL (1.6-8.6); White Blood Cell 8.6 10^3/uL (4.4-10.8)
[2023-10-17 06:50] LABS: Basophils % (auto) 0.4 % (0.0-2.0); Chloride 104 mmol/L (98-107); Eosinophils % (auto) 2.9 % (0.0-7.0); Hematocrit 26.9 % (36.0-46.0); Hemoglobin 8.7 g/dL (12.2-16.2); Lymphocytes % (auto) 13.9 % (10.0-50.0); Mean Corpuscular Hemoglobin 26.9 pg (28.0-32.0); Mean Corpuscular Hgb Conc. 32.3 g/dL (32.0-36.0); Mean Corpuscular Volume 83.2 fL (80.0-100.0); Neutrophils % (auto) 73.1 % (37.0-80.0); Nucleated Red Blood Cells % 0.2 %; Potassium 3.8 mmol/L (3.5-5.1); Red Blood Cells 3.23 10^6/uL (4.0-5.20); Red Cell Distribution Width 15.1 % (11.8-14.3); Sodium 135 mmol/L (136-145)
[2023-10-17] MEDS ORDERED: KETOROLAC TROMETH 30 MG/ML 1ML VIAL ONE (06:50)
[2023-10-17] MEDS ORDERED: LIDOCAINE 1% INJ PF 5ML AMP ONE (06:50)
[2023-10-17] MEDS ORDERED: ONDANSETRON HCL 4 MG/2 ML VIAL ONE (06:50)
[2023-10-17] MEDS ORDERED: PROPOFOL 10 MG/ML 20 ML IV ONE (06:50)
[2023-10-17] MEDS ORDERED: DexAMETHasone SOD PHOS 10MG/1ML VIAL INJ ONE (06:50)
[2023-10-17] MEDS ORDERED: GLYCOPYRROLATE 0.2 MG/ML 1ML VIAL ONE (06:50)
[2023-10-17 06:51] LABS: Anion Gap 10 (5-15); Carbon Dioxide 21 mmol/L (20-30)
[2023-10-17 06:57] LABS: BUN/Creatinine Ratio 15.4 (10.0-20.0); Blood Urea Nitrogen 37 mg/dL (9-23); Glucose 282 mg/dL (74-106)
[2023-10-17] MEDS ORDERED: LIDOCAINE 1% HCL (LOCAL ANESTH.) INJ 20ML MDV ONE (07:00)
[2023-10-17] MEDS: BUPIVACAINE 0.5% P/F INJ 10 ML VIAL ONE ×2 (07:00→08:05)
[2023-10-17] MEDS ORDERED: KETAMINE 50mg/ML 1ml syringe ONE (07:21)
[2023-10-17 08:28] VITALS: RESP 14; O2SAT 100
[2023-10-17] MEDS: ACCU-CHEK COMFORT CURVE STRIP VI SCH ×5 (08:43→22:45)
[2023-10-17] MEDS ORDERED: NALOXONE HCL 0.4 MG/ML VIAL IV PRN (08:45)
[2023-10-17] MEDS ORDERED: FLUMAZENIL 0.1 MG/ML INJ 10ML MDV IV PRN (08:45)
[2023-10-17] MEDS ORDERED: hydrALAZINE HCL 20 MG/ML VL IV PRN (08:45)
[2023-10-17] MEDS ORDERED: ePHEDrine SULFATE 50 MG/ML AMP IV PRN (08:45)
[2023-10-17] MEDS ORDERED: ONDANSETRON HCL 4 MG/2 ML VIAL IV PRN (08:45)
[2023-10-17] MEDS ORDERED: fentaNYL CITRATE 100 MCG/2 ML VL IV PRN (08:45)
[2023-10-17] MEDS ORDERED: LABETALOL HCL 5 MG/ML 4ML SYRINGE IV PRN (08:45)
[2023-10-17] MEDS ORDERED: FUROSEMIDE 20 MG/2 ML VIAL ONE (09:03)
[2023-10-17] MEDS: GABAPENTIN 300 MG CAP PO SCH ×2 (09:13→21:53)
[2023-10-17] MEDS: HYDROmorphone HCL 2 MG/ML VL/or syr IV PRN ×3 (09:14→10:50)
[2023-10-17] MEDS: HYDROcodone-ACET 5/325MG TAB PO PRN ×3 (10:31→20:42)
[2023-10-17] MEDS: InsuLIN REG 1unit/0.01ml Soln (100units/ml) SC SCH ×5 (11:30→21:51)
[2023-10-17 21:18] VITALS: BP 131/69; PULSE 67; PULSE 88; RESP 18; TEMP 98.4; O2SAT 95
[2023-10-17] MEDS: INSULIN LANTUS (GLARGINE) 1 /0.01ml (100units/ml) SC SCH ×2 (21:53→22:35)
[2023-10-17] MEDS: SACUBITRIL-VALSARTAN 24mg/26mg TAB PO SCH (21:53)
[2023-10-17] MEDS: ATORVASTATIN 20 MG TAB PO SCH (21:54)
[2023-10-17] MEDS: CARVEDILOL 12.5 MG TAB PO SCH ×2 (21:54→22:00)
[2023-10-17] MEDS: SODIUM CHLOR 0.9% PF (SALINE LOCK) 10ML VIAL/SYR IV SCH ×2 (22:00)
[2023-10-17] MEDS ORDERED: diphenhdrAMINE HCL 50 MG/1 ML VL ONE (22:09)
[2023-10-17] MEDS ORDERED: MORPHINE SULFATE INJ 2 MG/ml SYRG ONE (22:10)
[2023-10-17] MEDS: ASPirin 325 MG TAB PO SCH (22:33)
[2023-10-17] MEDS: EMPAGLIFLOZIN 10 MG TAB PO SCH (22:34)
[2023-10-17] MEDS ORDERED: METF-372 PO (22:35)
[2023-10-17] MEDS ORDERED: GABA-339 PO (22:35)
[2023-10-17] MEDS ORDERED: DIPH25CA66 PO (22:35)
[2023-10-17] MEDS ORDERED: HYDR-4798 PO (22:38)
[2023-10-17] MEDS ORDERED: InsuLIN REG 1unit/0.01ml Soln (100units/ml) SC ONE (23:00)
[2023-10-18] VITALS (7 sets, daily range): BP systolic 93–142; BP diastolic 49–72; PULSE 53–62; RESP 17–18; TEMP 97.2–98.6; O2SAT 94–97
[2023-10-18] MEDS ORDERED: InsuLIN REG 1unit/0.01ml Soln (100units/ml) SC ONE (00:30)
[2023-10-18] MEDS: CEFEPIME 1GM/ 50ML 50 ML IV SCH ×2 (02:06→13:44)
[2023-10-18] MEDS: InsuLIN REG 1unit/0.01ml Soln (100units/ml) SC SCH ×5 (04:09→20:32)
[2023-10-18] MEDS: SODIUM CHLORIDE 0.9% 1,000 ML IV SCH ×2 (04:12→22:22)
[2023-10-18] MEDS: MORPHINE SULFATE INJ 2 MG/ml SYRG IV PRN ×2 (04:46→09:02)
[2023-10-18 05:35] LABS: Basophils # (auto) 0 10 ^3/uL (0-0.2); Basophils % (auto) 0.1 % (0.0-2.0); Eosinophils # (auto) 0 10 ^3/uL (0-0.8); Lymphocytes # (auto) 0.8 10 ^3/uL (0.4-5.4); Lymphocytes % (auto) 9.3 % (10.0-50.0); Monocytes # (auto) 0.8 10 ^3/uL (0-1.3); Nucleated Red Blood Cells % 0.1 %
[2023-10-18 05:37] LABS: Hematocrit 27.5 % (36.0-46.0); Hemoglobin 8.9 g/dL (12.2-16.2); Mean Corpuscular Hemoglobin 27.2 pg (28.0-32.0); Mean Corpuscular Hgb Conc. 32.5 g/dL (32.0-36.0); Mean Corpuscular Volume 83.7 fL (80.0-100.0); Neutrophils % (auto) 81.6 % (37.0-80.0); Red Blood Cells 3.29 10^6/uL (4.0-5.20); Red Cell Distribution Width 14.9 % (11.8-14.3); White Blood Cell 8.5 10^3/uL (4.4-10.8)
[2023-10-18 05:53] LABS: Alanine Aminotransferase 52 U/L (7-40); Albumin 3.3 g/dL (3.2-4.8); Alkaline Phosphatase 174 U/L (46-116); Anion Gap 9 (5-15); Aspartate Aminotransferase 33 U/L (13-40); BUN/Creatinine Ratio 21.6 (10.0-20.0); Blood Urea Nitrogen 45 mg/dL (9-23); Carbon Dioxide 20 mmol/L (20-30); Chloride 103 mmol/L (98-107); Magnesium 1.8 mg/dL (1.6-2.6); Potassium 4.5 mmol/L (3.5-5.1); Sodium 132 mmol/L (136-145)
[2023-10-18 05:54] LABS: Bilirubin, Total 0.2 mg/dL (0.2-1.0); Phosphorus 3.1 mg/dL (2.4-5.1); Total Protein 6.7 g/dL (5.7-8.2)
[2023-10-18] MEDS: GABAPENTIN 300 MG CAP PO SCH ×3 (06:00→22:20)
[2023-10-18] MEDS: FUROSEMIDE 40 MG TAB PO SCH ×2 (06:00→17:46)
[2023-10-18 06:03] LABS: Glucose 462 mg/dL (74-106)
[2023-10-18] MEDS: HYDROcodone-ACET 5/325MG TAB PO PRN ×2 (06:51→11:36)
[2023-10-18] MEDS: EMPAGLIFLOZIN 10 MG TAB PO SCH (08:58)
[2023-10-18] MEDS: SACUBITRIL-VALSARTAN 24mg/26mg TAB PO SCH ×2 (08:58→22:20)
[2023-10-18] MEDS: ASPirin 325 MG TAB PO SCH (08:58)
[2023-10-18] MEDS: CARVEDILOL 12.5 MG TAB PO SCH ×2 (08:58→22:21)
[2023-10-18] MEDS: SODIUM CHLOR 0.9% PF (SALINE LOCK) 10ML VIAL/SYR IV SCH ×3 (08:58→22:21)
[2023-10-18] MEDS: INSULIN LANTUS (GLARGINE) 1 /0.01ml (100units/ml) SC SCH ×2 (09:00→22:26)
[2023-10-18] MEDS: diphenhdrAMINE HCL 50 MG/1 ML VL IV PRN ×3 (09:15→20:27)
[2023-10-18] MEDS: ONDANSETRON HCL 4 MG/2 ML VIAL IV PRN ×2 (09:16→22:40)
[2023-10-18] MEDS ORDERED: MAALOX PLUS or MAALOX 30 ML PO PRN (14:15)
[2023-10-18] MEDS: HYDROmorphone HCL 2 MG/ML VL/or syr IV PRN ×2 (14:40→20:26)
[2023-10-18 15:09] LABS: Creatinine, Urine 40.57 mg/dL (30.0-125.0)
[2023-10-18] MEDS: ATORVASTATIN 20 MG TAB PO SCH (22:21)
[2023-10-19] VITALS (7 sets, daily range): BP systolic 95–121; BP diastolic 41–59; PULSE 58–68; RESP 16–19; TEMP 97.5–98.1; O2SAT 94–97
[2023-10-19] MEDS: SODIUM CHLORIDE 0.9% 1,000 ML IV SCH ×5 (00:07→20:11)
[2023-10-19] MEDS: CEFEPIME 1GM/ 50ML 50 ML IV SCH ×2 (01:54→14:26)
[2023-10-19] MEDS: HYDROmorphone HCL 2 MG/ML VL/or syr IV PRN ×4 (02:02→21:30)
[2023-10-19] MEDS: InsuLIN REG 1unit/0.01ml Soln (100units/ml) SC SCH ×6 (04:00→21:42)
[2023-10-19] MEDS: diphenhdrAMINE HCL 50 MG/1 ML VL IV PRN ×4 (04:42→22:48)
[2023-10-19] MEDS: ONDANSETRON HCL 4 MG/2 ML VIAL IV PRN ×3 (04:49→17:38)
[2023-10-19] MEDS: FUROSEMIDE 40 MG TAB PO SCH ×2 (06:00→17:18)
[2023-10-19] MEDS: GABAPENTIN 300 MG CAP PO SCH ×3 (06:21→21:30)
[2023-10-19] MEDS: SODIUM CHLOR 0.9% PF (SALINE LOCK) 10ML VIAL/SYR IV SCH ×2 (10:10→21:43)
[2023-10-19] MEDS: CARVEDILOL 12.5 MG TAB PO SCH ×2 (11:40→21:31)
[2023-10-19] MEDS: EMPAGLIFLOZIN 10 MG TAB PO SCH (11:40)
[2023-10-19] MEDS: ASPirin 325 MG TAB PO SCH (11:40)
[2023-10-19] MEDS: INSULIN LANTUS (GLARGINE) 1 /0.01ml (100units/ml) SC SCH ×2 (11:42→21:32)
[2023-10-19] MEDS: SACUBITRIL-VALSARTAN 24mg/26mg TAB PO SCH ×2 (11:48→21:30)
[2023-10-19] MEDS: DAKINS QUARTER STR 0.125% (NaHypochlorite) 473 ML TOPICAL SOL TOP SCH (19:03)
[2023-10-19] MEDS: ATORVASTATIN 20 MG TAB PO SCH (21:30)
[2023-10-20] VITALS (7 sets, daily range): BP systolic 82–122; BP diastolic 29–65; PULSE 65–76; RESP 15–20; TEMP 97.7–98.7; O2SAT 91–97
[2023-10-20] MEDS: DAKINS QUARTER STR 0.125% (NaHypochlorite) 473 ML TOPICAL SOL TOP SCH ×3 (01:40→22:01)
[2023-10-20] MEDS: CEFEPIME 1GM/ 50ML 50 ML IV SCH ×3 (02:11→06:19)
[2023-10-20] MEDS: InsuLIN REG 1unit/0.01ml Soln (100units/ml) SC SCH ×6 (04:00→20:00)
[2023-10-20] MEDS: HYDROcodone-ACET 5/325MG TAB PO PRN (04:06)
[2023-10-20] MEDS: FUROSEMIDE 40 MG TAB PO SCH ×2 (06:00→18:33)
[2023-10-20] MEDS: GABAPENTIN 300 MG CAP PO SCH ×3 (06:17→21:52)
[2023-10-20] MEDS: SODIUM CHLORIDE 0.9% 1,000 ML IV SCH ×3 (08:49→22:07)
[2023-10-20] MEDS: CARVEDILOL 12.5 MG TAB PO SCH (08:49)
[2023-10-20] MEDS: SACUBITRIL-VALSARTAN 24mg/26mg TAB PO SCH ×2 (08:51→21:52)
[2023-10-20] MEDS: ONDANSETRON HCL 4 MG/2 ML VIAL IV PRN ×3 (09:01→18:01)
[2023-10-20] MEDS: ASPirin 325 MG TAB PO SCH (09:01)
[2023-10-20] MEDS: EMPAGLIFLOZIN 10 MG TAB PO SCH (09:01)
[2023-10-20] MEDS: SODIUM CHLOR 0.9% PF (SALINE LOCK) 10ML VIAL/SYR IV SCH ×2 (09:02→22:06)
[2023-10-20] MEDS: INSULIN LANTUS (GLARGINE) 1 /0.01ml (100units/ml) SC SCH ×2 (09:09→22:00)
[2023-10-20 09:17] LABS: Hepatitis B Surface Antigen Negative (Negative)
[2023-10-20 09:38] LABS: Hepatitis C Antibody Negative (Negative)
[2023-10-20] MEDS: HYDROmorphone HCL 2 MG/ML VL/or syr IV PRN ×3 (11:09→20:10)
[2023-10-20] MEDS: diphenhdrAMINE HCL 50 MG/1 ML VL IV PRN (12:00)
[2023-10-20] MEDS ORDERED: PROMETHAZINE HCL 25 MG/ML 1ML IV PRN (15:30)
[2023-10-20] MEDS ORDERED: CLINDAMYCIN 600MG IV 50 ML IV ONE (15:45)
[2023-10-20] MEDS: ATORVASTATIN 20 MG TAB PO SCH (21:52)
[2023-10-20] MEDS: CLINDAMYCIN 600MG IV 50 ML IV SCH (22:06)
[2023-10-21] VITALS (8 sets, daily range): BP systolic 92–126; BP diastolic 37–69; PULSE 67–75; RESP 15–20; TEMP 97.8–99.1; O2SAT 96–99
[2023-10-21] MEDS: HYDROmorphone HCL 2 MG/ML VL/or syr IV PRN ×3 (01:38→22:07)
[2023-10-21] MEDS: InsuLIN REG 1unit/0.01ml Soln (100units/ml) SC SCH ×6 (04:00→20:27)
[2023-10-21] MEDS: GABAPENTIN 300 MG CAP PO SCH ×3 (05:48→23:35)
[2023-10-21] MEDS: SODIUM CHLORIDE 0.9% 1,000 ML IV SCH (05:48)
[2023-10-21] MEDS: CLINDAMYCIN 600MG IV 50 ML IV SCH ×3 (05:51→23:35)
[2023-10-21] MEDS: diphenhdrAMINE HCL 50 MG/1 ML VL IV PRN ×2 (06:09→20:19)
[2023-10-21] MEDS: FUROSEMIDE 40 MG TAB PO SCH ×2 (06:09→17:37)
[2023-10-21 06:51] LABS: Anion Gap 5 (5-15); Carbon Dioxide 25 mmol/L (20-30); Chloride 108 mmol/L (98-107); Potassium 4.4 mmol/L (3.5-5.1); Sodium 138 mmol/L (136-145)
[2023-10-21 06:53] LABS: Calcium 7.8 mg/dL (8.7-10.4)
[2023-10-21 06:57] LABS: BUN/Creatinine Ratio 29.7 (10.0-20.0); Blood Urea Nitrogen 35 mg/dL (9-23); Glucose 76 mg/dL (74-106)
[2023-10-21 06:59] LABS: Basophils # (auto) 0 10 ^3/uL (0-0.2); Basophils % (auto) 0.3 % (0.0-2.0); Hemoglobin 8.3 g/dL (12.2-16.2)
[2023-10-21 07:01] LABS: Eosinophils # (auto) 0.3 10 ^3/uL (0-0.8); Eosinophils % (auto) 1.8 % (0.0-7.0); Hematocrit 25.7 % (36.0-46.0); Lymphocytes # (auto) 1.9 10 ^3/uL (0.4-5.4); Lymphocytes % (auto) 13.2 % (10.0-50.0); Mean Corpuscular Hemoglobin 26.7 pg (28.0-32.0); Mean Corpuscular Hgb Conc. 32.3 g/dL (32.0-36.0); Mean Corpuscular Volume 82.8 fL (80.0-100.0); Monocytes # (auto) 0.8 10 ^3/uL (0-1.3); Monocytes % (auto) 5.8 % (0.0-12.0); Neutrophils % (auto) 78.9 % (37.0-80.0); Red Blood Cells 3.11 10^6/uL (4.0-5.20); Red Cell Distribution Width 14.5 % (11.8-14.3)
[2023-10-21] MEDS: ASPirin 325 MG TAB PO SCH (10:00)
[2023-10-21] MEDS: SACUBITRIL-VALSARTAN 24mg/26mg TAB PO SCH ×2 (10:00→23:35)
[2023-10-21] MEDS: PANTOPRAZOLE 40 MG TAB PO SCH (10:00)
[2023-10-21] MEDS: SODIUM CHLOR 0.9% PF (SALINE LOCK) 10ML VIAL/SYR IV SCH ×2 (10:00→23:36)
[2023-10-21] MEDS: INSULIN LANTUS (GLARGINE) 1 /0.01ml (100units/ml) SC SCH ×2 (10:05→23:50)
[2023-10-21] MEDS: EMPAGLIFLOZIN 10 MG TAB PO SCH (10:15)
[2023-10-21] MEDS: DAKINS QUARTER STR 0.125% (NaHypochlorite) 473 ML TOPICAL SOL TOP SCH ×2 (10:30→23:52)
[2023-10-21] MEDS ORDERED: LACTULOSE 20Gm/30ML SOLN PO ONE (12:15)
[2023-10-21] MEDS ORDERED: traMADol HCL 50 MG TAB PO PRN (13:45)
[2023-10-21] MEDS: ONDANSETRON HCL 4 MG/2 ML VIAL IV PRN (19:59)
[2023-10-21] MEDS: ATORVASTATIN 20 MG TAB PO SCH (23:35)
[2023-10-22] MEDS: InsuLIN REG 1unit/0.01ml Soln (100units/ml) SC SCH ×4 (04:00→12:53)
[2023-10-22] MEDS: diphenhdrAMINE HCL 50 MG/1 ML VL IV PRN ×2 (04:31→08:35)
[2023-10-22] MEDS: HYDROmorphone HCL 2 MG/ML VL/or syr IV PRN ×2 (04:31→08:35)
[2023-10-22 05:00] VITALS: BP 120/68; PULSE 66; RESP 17; TEMP 99; O2SAT 96
[2023-10-22] MEDS: CLINDAMYCIN 600MG IV 50 ML IV SCH (06:41)
[2023-10-22] MEDS: GABAPENTIN 300 MG CAP PO SCH (06:42)
[2023-10-22] MEDS: FUROSEMIDE 40 MG TAB PO SCH (06:42)
[2023-10-22 06:54] LABS: Chloride 104 mmol/L (98-107); Potassium 4.4 mmol/L (3.5-5.1); Sodium 137 mmol/L (136-145)
[2023-10-22 06:55] LABS: Anion Gap 8 (5-15); Calcium 7.9 mg/dL (8.7-10.4); Carbon Dioxide 25 mmol/L (20-30)
[2023-10-22 07:00] LABS: BUN/Creatinine Ratio 23.5 (10.0-20.0); Blood Urea Nitrogen 31 mg/dL (9-23); Glucose 99 mg/dL (74-106)
[2023-10-22 07:01] LABS: Magnesium 1.8 mg/dL (1.6-2.6)
[2023-10-22 07:02] LABS: White Blood Cell 12.1 10^3/uL (4.4-10.8)
[2023-10-22 07:04] LABS: Hematocrit 26.7 % (36.0-46.0); Hemoglobin 8.5 g/dL (12.2-16.2); Mean Corpuscular Hemoglobin 26.2 pg (28.0-32.0); Mean Corpuscular Hgb Conc. 31.7 g/dL (32.0-36.0); Mean Corpuscular Volume 82.8 fL (80.0-100.0); Red Blood Cells 3.22 10^6/uL (4.0-5.20); Red Cell Distribution Width 14.6 % (11.8-14.3)
[2023-10-22 07:10] LABS: Band Neutrophils % (manual) 0; Basophils % (manual) 0 (0.0-2.0); Blast Cells 0; Promyelocytes % 0; Reactive Lymphocytes 0
[2023-10-22 08:00] VITALS: PULSE 72; RESP 20; O2SAT 95
[2023-10-22] MEDS: INSULIN LANTUS (GLARGINE) 1 /0.01ml (100units/ml) SC SCH ×2 (08:40)
[2023-10-22 08:49] LABS: Eosinophils % (manual) 2 (0-7); Lymphocytes % (manual) 16 (10.0-50.0); Metamyelocytes % 2; Monocytes % (manual) 7 (0-12); Myelocytes % 2; Platelet Estimate Increased
[2023-10-22] MEDS: EMPAGLIFLOZIN 10 MG TAB PO SCH (09:40)
[2023-10-22] MEDS: PANTOPRAZOLE 40 MG TAB PO SCH (09:40)
[2023-10-22] MEDS: SACUBITRIL-VALSARTAN 24mg/26mg TAB PO SCH (09:40)
[2023-10-22] MEDS: SODIUM CHLOR 0.9% PF (SALINE LOCK) 10ML VIAL/SYR IV SCH (09:42)
[2023-10-22] MEDS: DAKINS QUARTER STR 0.125% (NaHypochlorite) 473 ML TOPICAL SOL TOP SCH (09:42)
[2023-10-22 09:53] VITALS: BP 103/47; PULSE 68; RESP 19; TEMP 98.3; O2SAT 94
[2023-10-22] MEDS ORDERED: CLIN-203 PO (11:41)
[2023-10-22] MEDS ORDERED: METF-372 PO (11:41)
[2023-10-22] MEDS ORDERED: INSU1INJ19 SC (11:41)
[2023-10-22] MEDS ORDERED: EMPA1TAB PO (11:41)
[2023-10-22 12:41] VITALS: BP 144/75; PULSE 84; RESP 19; TEMP 97.9; O2SAT 98
[2023-10-22 12:58] VITALS: BP 144/75; PULSE 84; RESP 19; TEMP 97.9; O2SAT 98
== END 2023-10-22 13:45 | disposition home health service (06) | DRG 720 ==
LOC: ER 18:59 → EDBD 18:59 → TELE 23:10 → TELE-CENTR 10-17 20:48 → CENTRAL 10-21 23:07
PROVIDERS: ADMIT Hospitalist; ATTEND Internal Medicine
PROC: 02HV33Z Insertion of Infusion Device into Superior Vena Cava, Percutaneous Approach (ICD-10-PCS; 2023-10-14)
PROC: B548ZZA Ultrasonography of Superior Vena Cava, Guidance (ICD-10-PCS; 2023-10-14)
PROC: 02HV33Z Insertion of Infusion Device into Superior Vena Cava, Percutaneous Approach (ICD-10-PCS; 2023-10-16)
PROC: B548ZZA Ultrasonography of Superior Vena Cava, Guidance (ICD-10-PCS; 2023-10-16)
PROC: 0JBR0ZZ Excision of Left Foot Subcutaneous Tissue and Fascia, Open Approach (ICD-10-PCS; principal; 2023-10-17 08:00)
DX: A41.9 Sepsis, unspecified organism (principal); J96.00 Acute respiratory failure, unspecified whether with hypoxia or hypercapnia; G93.41 Metabolic encephalopathy; I50.31 Acute diastolic (congestive) heart failure; J15.9 Unspecified bacterial pneumonia; I11.0 Hypertensive heart disease with heart failure; E11.40 Type 2 diabetes mellitus with diabetic neuropathy, unspecified; Z68.43 Body mass index [BMI] 50.0-59.9, adult; E11.621 Type 2 diabetes mellitus with foot ulcer; L97.509 Non-pressure chronic ulcer of other part of unspecified foot with unspecified severity; L03.116 Cellulitis of left lower limb; E11.65 Type 2 diabetes mellitus with hyperglycemia; E86.0 Dehydration; E66.01 Morbid (severe) obesity due to excess calories; G25.81 Restless legs syndrome; K21.9 Gastro-esophageal reflux disease without esophagitis; J45.909 Unspecified asthma, uncomplicated; F17.210 Nicotine dependence, cigarettes, uncomplicated; Z82.49 Family history of ischemic heart disease and other diseases of the circulatory system
CPT/HCPCS: 36415; 36569; 36600; 71045; 76881; 80048; 80053; 80061; 80202; 80307; 81001; 81025; 82010; 82270; 82565; 82570; 82805; 82962; 83036; 83605; 83690; 83735; 83880; 83930; 83970; 84100; 84300; 84443; 84484; 84702; 85007; 85025; 85027; 85610; 85730; 86803; 87040; 87070; 87075; 87077; 87081; 87086; 87186; 87205; 87340; 93005; 93306; 93971; 97163; 99291; G0378; J1100; J1815; J1885; J2001; J2405; J2543; J2704; J3490

== ENCOUNTER 2023-11-01 07:25 | Inpatient (IN) | payer MEDICAID ==
[2023-11-01] VITALS (7 sets, daily range): BP systolic 133–156; BP diastolic 78–87; PULSE 74–89; RESP 16–21; TEMP 36.8; O2SAT 91–99
[~2023-11-01] VITALS: Ht 167.6 cm; Wt 137.4 kg
[~2023-11-01 07:25] MED LIST changes: +CLIN-203 PO; +DIPH25CA66 PO; +EMPA1TAB PO; +GABA-339 PO; +HYDR-4798 PO; +INSU1INJ19 SC; -METF-370 PO; +METF-372 PO
[2023-11-01] MEDS: VANCOMYCIN 1GM/200ML 200 ML IV ONE (08:15)
[2023-11-01 08:55] LABS: Chloride 103 mmol/L (98-107); Sodium 135 mmol/L (136-145)
[2023-11-01 08:56] LABS: Anion Gap 7 (5-15); Calcium 8.2 mg/dL (8.7-10.4); Carbon Dioxide 25 mmol/L (20-30)
[2023-11-01 09:00] LABS: INR 1.04 (0.9-1.15); Prothrombin Time 10.9 sec (9.3-11.8)
[2023-11-01 09:01] LABS: BUN/Creatinine Ratio 15.6 (10.0-20.0); Blood Urea Nitrogen 21 mg/dL (9-23); Glucose 241 mg/dL (74-106)
[2023-11-01 09:06] LABS: Eosinophils # (auto) 0.2 10 ^3/uL (0-0.8); Eosinophils % (auto) 2.2 % (0.0-7.0); Monocytes # (auto) 0.6 10 ^3/uL (0-1.3); White Blood Cell 6.9 10^3/uL (4.4-10.8)
[2023-11-01 09:08] LABS: Basophils # (auto) 0.1 10 ^3/uL (0-0.2); Basophils % (auto) 0.8 % (0.0-2.0); Hematocrit 30.9 % (36.0-46.0); Hemoglobin 9.7 g/dL (12.2-16.2); Lymphocytes % (auto) 14.9 % (10.0-50.0); Mean Corpuscular Hemoglobin 26.3 pg (28.0-32.0); Mean Corpuscular Hgb Conc. 31.5 g/dL (32.0-36.0); Mean Corpuscular Volume 83.4 fL (80.0-100.0); Monocytes % (auto) 9.4 % (0.0-12.0); Neutrophils % (auto) 72.7 % (37.0-80.0); Nucleated Red Blood Cells % 0.2 %; Red Blood Cells 3.71 10^6/uL (4.0-5.20); Red Cell Distribution Width 15.3 % (11.8-14.3)
[2023-11-01] MEDS: MORPHINE SULFATE 4 MG/ML SYR/VIAL IV ONE (09:16)
[2023-11-01] MEDS: ONDANSETRON HCL 4 MG/2 ML VIAL IV ONE (09:16)
[2023-11-01] MEDS ORDERED: IPRATROPIUM BROM 0.5 MG/2.5ML INH SOL NEB PRN ×3 (11:00→12:15)
[2023-11-01] MEDS ORDERED: DOCUSATE SOD 100 MG CAP PO PRN ×3 (11:00→12:15)
[2023-11-01] MEDS ORDERED: VANCOMYCIN PER PHARMACY 0 MG IV SCH ×3 (11:00→12:15)
[2023-11-01] MEDS ORDERED: ALBUTEROL SULF 2.5 MG/0.5ML(0.5%) NEB SOLN NEB PRN ×3 (11:00→12:15)
[2023-11-01] MEDS ORDERED: SODIUM CHLORIDE 0.9% 1,000 ML IV SCH ×2 (11:00→11:15)
[2023-11-01] MEDS ORDERED: MORPHINE SULFATE INJ 2 MG/ml SYRG IV PRN ×2 (11:00→11:15)
[2023-11-01] MEDS ORDERED: cefTRIAXone 1GM/50ML D5W 50 ML IV ONE ×2 (11:00→11:28)
[2023-11-01] MEDS ORDERED: ONDANSETRON HCL 4 MG/2 ML VIAL IV PRN ×2 (11:00→11:15)
[2023-11-01] MEDS ORDERED: DEXTROSE (50%) 50ML SYRG IV PRN ×3 (11:00→12:15)
[2023-11-01] MEDS: cefTRIAXone 1GM/50ML D5W 50 ML IV ONE (11:28)
[2023-11-01] MEDS ORDERED: ACCU-CHEK COMFORT CURVE STRIP VI SCH ×2 (11:30→11:45)
[2023-11-01] MEDS ORDERED: InsuLIN REG 1unit/0.01ml Soln (100units/ml) SC SCH ×4 (11:30→22:00)
[2023-11-01] MEDS: diphenhdrAMINE HCL 50 MG/1 ML VL IV ONE (11:57)
[2023-11-01] MEDS: MORPHINE SULFATE 4 MG/ML SYR/VIAL IV PRN (11:58)
[2023-11-01] MEDS: SODIUM CHLORIDE 0.9% 1,000 ML IV SCH (16:23)
[2023-11-01] MEDS: MORPHINE SULFATE INJ 2 MG/ml SYRG IV PRN (16:24)
[2023-11-01] MEDS: VANCOMYCIN 1GM/200ML 200 ML IV SCH (18:17)
[2023-11-01] MEDS: ACCU-CHEK COMFORT CURVE STRIP VI SCH (18:20)
[2023-11-01] MEDS: InsuLIN REG 1unit/0.01ml Soln (100units/ml) SC SCH ×2 (18:52→21:30)
[2023-11-01] MEDS: HYDROmorphone HCL 2 MG/ML VL/or syr IV ONE (21:39)
[2023-11-02] VITALS (9 sets, daily range): BP systolic 130–171; BP diastolic 74–101; PULSE 61–86; RESP 18–20; TEMP 97.8–98.4; O2SAT 94–100
[2023-11-02 06:32] LABS: Eosinophils # (auto) 0.2 10 ^3/uL (0-0.8); Mean Corpuscular Volume 82.9 fL (80.0-100.0); Monocytes # (auto) 0.6 10 ^3/uL (0-1.3); Monocytes % (auto) 9.5 % (0.0-12.0); Nucleated Red Blood Cells % 0.2 %; Red Cell Distribution Width 15.4 % (11.8-14.3)
[2023-11-02 06:35] LABS: Alanine Aminotransferase 551 U/L (7-40); Albumin 3.4 g/dL (3.2-4.8); Alkaline Phosphatase 258 U/L (46-116); Anion Gap 7 (5-15); Aspartate Aminotransferase 178 U/L (13-40); Basophils # (auto) 0.1 10 ^3/uL (0-0.2); Bilirubin, Total 0.4 mg/dL (0.2-1.0); Blood Urea Nitrogen 19 mg/dL (9-23); Calcium 8.2 mg/dL (8.7-10.4); Carbon Dioxide 24 mmol/L (20-30); Chloride 103 mmol/L (98-107); Glucose 158 mg/dL (74-106); Hematocrit 27.5 % (36.0-46.0); Hemoglobin 8.7 g/dL (12.2-16.2); Lymphocytes # (auto) 1.3 10 ^3/uL (0.4-5.4); Lymphocytes % (auto) 20.7 % (10.0-50.0); Mean Corpuscular Hemoglobin 26.4 pg (28.0-32.0); Mean Corpuscular Hgb Conc. 31.8 g/dL (32.0-36.0); Neutrophils # (auto) 4.2 10 ^3/uL (1.6-8.6); Neutrophils % (auto) 65.8 % (37.0-80.0); Potassium 5.1 mmol/L (3.5-5.1); Red Blood Cells 3.31 10^6/uL (4.0-5.20); Sodium 134 mmol/L (136-145); White Blood Cell 6.4 10^3/uL (4.4-10.8)
[2023-11-02 06:36] LABS: Total Protein 7.6 g/dL (5.7-8.2)
[2023-11-02] MEDS ORDERED: cefTRIAXone 1GM/50ML D5W 50 ML IV SCH ×2 (09:00)
[2023-11-02] MEDS: PANTOPRAZOLE 40 MG/10 ML VIAL INJ IV SCH (09:30)
[2023-11-02] MEDS: cefTRIAXone 1GM/50ML D5W 50 ML IV SCH (09:30)
[2023-11-02] MEDS: ENOXAPARIN SOD 40 MG/0.4 ML SYRINGE SC SCH ×2 (09:31→21:57)
[2023-11-02] MEDS ORDERED: PANTOPRAZOLE 40 MG/10 ML VIAL INJ IV SCH ×2 (10:00)
[2023-11-02] MEDS ORDERED: ENOXAPARIN SOD 40 MG/0.4 ML SYRINGE SC SCH ×2 (10:00)
[2023-11-02] MEDS: GABAPENTIN 300 MG CAP PO ONE (12:02)
[2023-11-02] MEDS: diphenhdrAMINE HCL 25 MG CAP PO PRN (12:02)
[2023-11-02] MEDS: HYDROcodone-ACET 5/325MG TAB PO PRN (12:03)
[2023-11-02] MEDS: PIPERACILLIN-TAZOB 3.375GM 100 ML IV SCH (14:00)
[2023-11-02] MEDS: LISINOPRIL 5 MG TAB PO ONE (14:00)
[2023-11-02 15:28] LABS: INR 1.04 (0.9-1.15); Partial Thromboplastin Time 28.4 SEC (24.5-34.5); Prothrombin Time 10.9 sec (9.3-11.8)
[2023-11-02 17:41] LABS: INR 1.06 (0.9-1.15); Prothrombin Time 11.1 sec (9.3-11.8)
[2023-11-02] MEDS: ASPirin 81 mg TAB PO ONE (17:51)
[2023-11-02] MEDS: GABAPENTIN 300 MG CAP PO SCH (21:57)
[2023-11-02] MEDS: DAKINS QUARTER STR 0.125% (NaHypochlorite) 473 ML TOPICAL SOL TOP SCH (22:58)
[2023-11-03] VITALS (8 sets, daily range): BP systolic 126–154; BP diastolic 71–86; PULSE 75–89; RESP 16–20; TEMP 97.9–98.5; O2SAT 90–100
[2023-11-03 06:12] LABS: Basophils # (auto) 0.1 10 ^3/uL (0-0.2); Lymphocytes # (auto) 1.5 10 ^3/uL (0.4-5.4); Monocytes # (auto) 0.7 10 ^3/uL (0-1.3); Monocytes % (auto) 10.2 % (0.0-12.0)
[2023-11-03 06:16] LABS: Basophils % (auto) 0.7 % (0.0-2.0); Eosinophils # (auto) 0.2 10 ^3/uL (0-0.8); Eosinophils % (auto) 3.6 % (0.0-7.0); Hematocrit 25.2 % (36.0-46.0); Lymphocytes % (auto) 22.3 % (10.0-50.0); Mean Corpuscular Hemoglobin 26.2 pg (28.0-32.0); Mean Corpuscular Hgb Conc. 31.6 g/dL (32.0-36.0); Mean Corpuscular Volume 82.9 fL (80.0-100.0); Neutrophils # (auto) 4.3 10 ^3/uL (1.6-8.6); Neutrophils % (auto) 63.2 % (37.0-80.0); Red Blood Cells 3.04 10^6/uL (4.0-5.20); Red Cell Distribution Width 15.4 % (11.8-14.3); White Blood Cell 6.8 10^3/uL (4.4-10.8)
[2023-11-03 06:26] LABS: Alanine Aminotransferase 383 U/L (7-40); Albumin 3.1 g/dL (3.2-4.8); Alkaline Phosphatase 216 U/L (46-116); Anion Gap 5 (5-15); Aspartate Aminotransferase 56 U/L (13-40); Blood Urea Nitrogen 18 mg/dL (9-23); Carbon Dioxide 26 mmol/L (20-30); Chloride 105 mmol/L (98-107); Glucose 219 mg/dL (74-106); Magnesium 1.8 mg/dL (1.6-2.6); Potassium 5.1 mmol/L (3.5-5.1); Sodium 136 mmol/L (136-145)
[2023-11-03 06:27] LABS: Bilirubin, Total 0.2 mg/dL (0.2-1.0); Total Protein 7.1 g/dL (5.7-8.2)
[2023-11-03 08:51] LABS: Sodium Urine 98 mmol/L (40-220)
[2023-11-03 08:53] LABS: Hepatitis B Surface Antigen Negative (Negative)
[2023-11-03 08:58] LABS: Amphetamine Screen, Urine Pos (NEGATIVE); Barbiturate Scree,Urine Neg (NEGATIVE); Benzodiazephine Screen, Urine Neg (NEGATIVE); Cocaine Screen, Urine Neg (NEGATIVE); Opiate Scree,Urine Pos (NEGATIVE)
[2023-11-03 08:59] LABS: Cannabinoid Screen, Urine Neg (NEGATIVE); Creatinine, Urine 46.94 mg/dL (30.0-125.0); Phencyclidine Screen, Urine Neg (NEGATIVE)
[2023-11-03 09:13] LABS: Hepatitis A Ab IgM Negative
[2023-11-03 09:15] LABS: Hepatitis B Core IgM Negative; Hepatitis C Antibody Negative (Negative)
[2023-11-03 09:32] LABS: Urine Bacteria FEW /hpf (None Seen); Urine Blood Negative /uL (Negative); Urine Budding Yeast MODERATE /hpf (None Seen); Urine Clarity Clear (Clear); Urine Color Colorless (Yellow); Urine Protein, UAD 1+ (Negative); Urine Specific Gravity 1.018 (1.001-1.035); Urine Urobilinogen Normal (Negative); Urine WBC 2 /hpf (0 - 5); Urine pH 5.5 (5.0-8.0)
[2023-11-03] MEDS: LISINOPRIL 5 MG TAB PO SCH (10:00)
[2023-11-03] MEDS: ASPirin 81 mg TAB PO SCH (10:01)
[2023-11-03] MEDS: VANCOMYCIN 1GM/200ML 200 ML IV SCH (12:12)
[2023-11-03] MEDS ORDERED: GABA800T97 PO (15:52)
[2023-11-03] MEDS ORDERED: INSU100I4 SC (16:01)
[2023-11-03] MEDS ORDERED: PANT40TA2 PO (16:01)
[2023-11-03] MEDS ORDERED: TIZA4CAP PO (16:01)
[2023-11-03] MEDS: INSULIN LANTUS (GLARGINE) 1 /0.01ml (100units/ml) SC SCH (22:27)
[2023-11-04] VITALS (7 sets, daily range): BP systolic 99–154; BP diastolic 60–89; PULSE 64–74; RESP 18–20; TEMP 97.4–98.7; O2SAT 92–98
[2023-11-04 07:23] LABS: Basophils # (auto) 0.1 10 ^3/uL (0-0.2); Eosinophils # (auto) 0.3 10 ^3/uL (0-0.8); Hemoglobin 7.7 g/dL (12.2-16.2); Lymphocytes # (auto) 1.9 10 ^3/uL (0.4-5.4); Monocytes # (auto) 0.7 10 ^3/uL (0-1.3); Neutrophils # (auto) 4.5 10 ^3/uL (1.6-8.6); Neutrophils % (auto) 60.8 % (37.0-80.0)
[2023-11-04 07:26] LABS: Eosinophils % (auto) 4.2 % (0.0-7.0); Hematocrit 24.7 % (36.0-46.0); Lymphocytes % (auto) 25.1 % (10.0-50.0); Mean Corpuscular Hemoglobin 25.7 pg (28.0-32.0); Mean Corpuscular Hgb Conc. 31.2 g/dL (32.0-36.0); Mean Corpuscular Volume 82.5 fL (80.0-100.0); Monocytes % (auto) 8.9 % (0.0-12.0); Red Blood Cells 2.99 10^6/uL (4.0-5.20); Red Cell Distribution Width 15.4 % (11.8-14.3); White Blood Cell 7.4 10^3/uL (4.4-10.8)
[2023-11-04 07:46] LABS: Anion Gap 5 (5-15); Carbon Dioxide 26 mmol/L (20-30); Chloride 103 mmol/L (98-107); Potassium 5.1 mmol/L (3.5-5.1); Sodium 134 mmol/L (136-145)
[2023-11-04 07:48] LABS: Calcium 8.3 mg/dL (8.5-10.1)
[2023-11-04 07:52] LABS: BUN/Creatinine Ratio 15.3 (10.0-20.0); Blood Urea Nitrogen 20 mg/dL (9-23); Glucose 160 mg/dL (74-106)
[2023-11-04] MEDS: EMPAGLIFLOZIN 10 MG TAB PO SCH (10:20)
[2023-11-05 05:00] VITALS: BP 108/60; PULSE 94; RESP 19; TEMP 98.5; O2SAT 93
[2023-11-05 06:40] LABS: Basophils # (auto) 0 10 ^3/uL (0-0.2); Basophils % (auto) 0.5 % (0.0-2.0); Eosinophils # (auto) 0.4 10 ^3/uL (0-0.8); Eosinophils % (auto) 5.8 % (0.0-7.0); Hematocrit 25.4 % (36.0-46.0); Hemoglobin 7.9 g/dL (12.2-16.2); Lymphocytes # (auto) 1.7 10 ^3/uL (0.4-5.4); Lymphocytes % (auto) 21.8 % (10.0-50.0); Mean Corpuscular Hgb Conc. 31.1 g/dL (32.0-36.0); Mean Corpuscular Volume 83.4 fL (80.0-100.0); Monocytes # (auto) 0.6 10 ^3/uL (0-1.3); Monocytes % (auto) 8.4 % (0.0-12.0); Neutrophils # (auto) 4.9 10 ^3/uL (1.6-8.6); Neutrophils % (auto) 63.5 % (37.0-80.0); Nucleated Red Blood Cells % 0.1 %; Red Blood Cells 3.05 10^6/uL (4.0-5.20); Red Cell Distribution Width 15.4 % (11.8-14.3); White Blood Cell 7.7 10^3/uL (4.4-10.8)
[2023-11-05 06:49] LABS: Anion Gap 4 (5-15); Carbon Dioxide 28 mmol/L (20-30); Chloride 103 mmol/L (98-107); Potassium 5.3 mmol/L (3.5-5.1); Sodium 135 mmol/L (136-145)
[2023-11-05 06:50] LABS: Calcium 8.5 mg/dL (8.5-10.1)
[2023-11-05 06:55] LABS: BUN/Creatinine Ratio 16.2 (10.0-20.0); Blood Urea Nitrogen 22 mg/dL (9-23); Glucose 112 mg/dL (74-106)
[2023-11-05 09:00] VITALS: BP 107/48; PULSE 76; RESP 14; TEMP 98; O2SAT 93
[2023-11-05 13:00] VITALS: BP 158/91; PULSE 73; RESP 20; TEMP 98.2; O2SAT 98
[2023-11-05 17:00] VITALS: BP 164/93; PULSE 76; RESP 18; TEMP 98.6; O2SAT 99
[2023-11-05] MEDS: ONDANSETRON HCL 4 MG/2 ML VIAL IV PRN (21:00)
[2023-11-05] MEDS: ERTAPENEM SOD INJ 1 GM in SODIUM CHL 0.9% 50 ML IV SCH (21:57)
[2023-11-05 22:00] VITALS: BP 181/105; PULSE 79; RESP 18; TEMP 98; O2SAT 90
[2023-11-05] MEDS: hydrALAZINE HCL 20 MG/ML VL IV ONE (22:04)
[2023-11-06 05:00] VITALS: BP 110/75; PULSE 76; RESP 18; TEMP 98.5; O2SAT 90
[2023-11-06 07:21] LABS: Basophils # (auto) 0 10 ^3/uL (0-0.2); Basophils % (auto) 0.5 % (0.0-2.0); Eosinophils # (auto) 0.4 10 ^3/uL (0-0.8); Monocytes # (auto) 0.7 10 ^3/uL (0-1.3)
[2023-11-06 07:24] LABS: Calcium 8.7 mg/dL (8.5-10.1); Chloride 102 mmol/L (98-107); Eosinophils % (auto) 4.9 % (0.0-7.0); Hematocrit 25.3 % (36.0-46.0); Hemoglobin 7.8 g/dL (12.2-16.2); Lymphocytes # (auto) 1.4 10 ^3/uL (0.4-5.4); Lymphocytes % (auto) 18.2 % (10.0-50.0); Mean Corpuscular Volume 83.9 fL (80.0-100.0); Neutrophils # (auto) 5.1 10 ^3/uL (1.6-8.6); Neutrophils % (auto) 67.4 % (37.0-80.0); Potassium 5.3 mmol/L (3.5-5.1); Red Blood Cells 3.01 10^6/uL (4.0-5.20); Red Cell Distribution Width 15.9 % (11.8-14.3); Sodium 134 mmol/L (136-145); White Blood Cell 7.6 10^3/uL (4.4-10.8)
[2023-11-06 07:25] LABS: Anion Gap 6 (5-15); Carbon Dioxide 26 mmol/L (20-30)
[2023-11-06 07:30] LABS: BUN/Creatinine Ratio 17.6 (10.0-20.0); Blood Urea Nitrogen 23 mg/dL (9-23); Glucose 150 mg/dL (74-106)
[2023-11-06] MEDS: amLODIPine BESYLATE 5 MG TAB PO SCH (09:33)
[2023-11-06] MEDS: LISINOPRIL 5 MG TAB PO SCH (09:33)
[2023-11-06 10:07] VITALS: BP 158/91; PULSE 72; RESP 20; TEMP 98.4; O2SAT 98
[2023-11-06 12:56] VITALS: BP 124/71; PULSE 69; RESP 19; TEMP 98; O2SAT 97
[2023-11-06 17:08] VITALS: BP 127/70; PULSE 71; RESP 19; TEMP 98.5; O2SAT 96
[2023-11-06 21:55] VITALS: BP 159/87; PULSE 75; RESP 18; TEMP 98.5; O2SAT 93
[2023-11-07 05:25] VITALS: BP 148/80; PULSE 90; RESP 20; TEMP 98.3; O2SAT 95
[2023-11-07 05:33] LABS: Anion Gap 3 (5-15); Carbon Dioxide 29 mmol/L (20-30); Chloride 106 mmol/L (98-107); Potassium 5.5 mmol/L (3.5-5.1); Sodium 138 mmol/L (136-145)
[2023-11-07 05:34] LABS: Calcium 8.3 mg/dL (8.5-10.1)
[2023-11-07 05:39] LABS: BUN/Creatinine Ratio 22.3 (10.0-20.0); Blood Urea Nitrogen 27 mg/dL (9-23); Glucose 166 mg/dL (74-106)
[2023-11-07 05:44] LABS: Alanine Aminotransferase 119 U/L (7-40); Albumin 3.2 g/dL (3.2-4.8); Alkaline Phosphatase 185 U/L (46-116); Anion Gap 5 (5-15); Aspartate Aminotransferase 18 U/L (13-40); BUN/Creatinine Ratio 17.2 (10.0-20.0); Bilirubin, Total 0.2 mg/dL (0.2-1.0); Blood Urea Nitrogen 21 mg/dL (9-23); Calcium 8.7 mg/dL (8.5-10.1); Carbon Dioxide 27 mmol/L (20-30); Chloride 105 mmol/L (98-107); Glucose 166 mg/dL (74-106); Potassium 5.1 mmol/L (3.5-5.1); Sodium 137 mmol/L (136-145); Total Protein 7.2 g/dL (5.7-8.2)
[2023-11-07 09:25] VITALS: BP 162/91; PULSE 83; RESP 20; TEMP 98; O2SAT 92
[2023-11-07] MEDS ORDERED: METOCLOPRAMIDE HCL 5MG/ml INJ 2ml VIAL IV PRN (11:00)
[2023-11-07] MEDS: ACCU-CHEK COMFORT CURVE STRIP VI ONE (11:00)
[2023-11-07] MEDS ORDERED: HYDROmorphone HCL 2 MG/ML VL/or syr IV PRN ×3 (11:00→13:30)
[2023-11-07] MEDS ORDERED: MORPHINE SULFATE INJ 2 MG/ml SYRG IV PRN (11:00)
[2023-11-07] MEDS: KETOROLAC TROMETH 30 MG/ML 1ML VIAL IV ONE (11:00)
[2023-11-07] MEDS: BUPIVACAINE 0.5% P/F INJ 10 ML VIAL ONE (11:03)
[2023-11-07] MEDS: LIDOCAINE 1% HCL (LOCAL ANESTH.) INJ 20ML MDV ONE (11:04)
[2023-11-07] MEDS ORDERED: KETAMINE 50mg/ML 1ml syringe ONE (11:09)
[2023-11-07] MEDS ORDERED: fentaNYL CITRATE 100 MCG/2 ML VL ONE (11:10)
[2023-11-07] MEDS ORDERED: PROPOFOL 10 MG/ML 20 ML IV ONE (11:10)
[2023-11-07] MEDS ORDERED: SODIUM CHLORIDE LOCK 10 ML ONE (11:10)
[2023-11-07] MEDS ORDERED: ONDANSETRON HCL 4 MG/2 ML VIAL ONE (11:10)
[2023-11-07] MEDS ORDERED: MIDAZOLAM HCL 2MG/2ML 2ml VIAL (1mg/ml) ONE (11:10)
[2023-11-07 14:27] VITALS: PULSE 65; RESP 9; O2SAT 100
[2023-11-07 16:44] VITALS: BP 119/67; PULSE 80; RESP 18; TEMP 97.6; O2SAT 90
[2023-11-07] MEDS: HYDROmorphone HCL 2 MG/ML VL/or syr IV PRN (18:00)
[2023-11-07 21:52] VITALS: BP 129/72; PULSE 79; RESP 18; TEMP 98.2; O2SAT 93
[2023-11-08] VITALS (7 sets, daily range): BP systolic 98–137; BP diastolic 56–87; PULSE 70–84; RESP 18–74; TEMP 97.9–98.4; O2SAT 90–99
[2023-11-08 05:44] LABS: Eosinophils # (auto) 0.3 10 ^3/uL (0-0.8); Mean Corpuscular Hemoglobin 25.9 pg (28.0-32.0); Monocytes # (auto) 0.7 10 ^3/uL (0-1.3); Nucleated Red Blood Cells % 0.1 %; Red Cell Distribution Width 15.8 % (11.8-14.3); White Blood Cell 8.4 10^3/uL (4.4-10.8)
[2023-11-08 05:45] LABS: Chloride 104 mmol/L (98-107); Potassium 5.4 mmol/L (3.5-5.1); Sodium 136 mmol/L (136-145)
[2023-11-08 05:46] LABS: Anion Gap 7 (5-15); Calcium 8.4 mg/dL (8.7-10.4); Carbon Dioxide 25 mmol/L (20-30)
[2023-11-08 05:47] LABS: Basophils # (auto) 0.1 10 ^3/uL (0-0.2); Basophils % (auto) 0.6 % (0.0-2.0); Eosinophils % (auto) 3.7 % (0.0-7.0); Hematocrit 26.6 % (36.0-46.0); Hemoglobin 8.4 g/dL (12.2-16.2); Lymphocytes # (auto) 1.3 10 ^3/uL (0.4-5.4); Lymphocytes % (auto) 15.8 % (10.0-50.0); Mean Corpuscular Hgb Conc. 31.7 g/dL (32.0-36.0); Mean Corpuscular Volume 81.8 fL (80.0-100.0); Monocytes % (auto) 8.6 % (0.0-12.0); Neutrophils % (auto) 71.3 % (37.0-80.0); Red Blood Cells 3.25 10^6/uL (4.0-5.20)
[2023-11-08 05:51] LABS: BUN/Creatinine Ratio 15.6 (10.0-20.0); Blood Urea Nitrogen 20 mg/dL (9-23); Glucose 148 mg/dL (74-106)
[2023-11-08] MEDS ORDERED: IPRATROPIUM BROM 0.5 MG/2.5ML INH SOL NEB PRN (12:45)
[2023-11-08] MEDS ORDERED: ALBUTEROL SULF 2.5 MG/0.5ML(0.5%) NEB SOLN NEB PRN (12:45)
[2023-11-08 13:27] LABS: Base Excess 0.4 mmol/L (-2.0-2.0)
[2023-11-08] MEDS: FUROSEMIDE 40 MG/4 ML VIAL IV ONE (14:24)
[2023-11-09] VITALS (10 sets, daily range): BP systolic 96–146; BP diastolic 53–76; PULSE 67–79; RESP 16–20; TEMP 98.1–98.6; O2SAT 93–99
[2023-11-09 05:28] LABS: Potassium 4.7 mmol/L (3.5-5.1)
[2023-11-09 05:30] LABS: Calcium 8.5 mg/dL (8.7-10.4)
[2023-11-09 05:35] LABS: BUN/Creatinine Ratio 16.8 (10.0-20.0)
[2023-11-09 05:36] LABS: Albumin 3.4 g/dL (3.2-4.8)
[2023-11-09 05:37] LABS: Phosphorus 6.1 mg/dL (2.4-5.1)
[2023-11-10] VITALS (7 sets, daily range): BP systolic 97–127; BP diastolic 53–79; PULSE 70–76; RESP 18–20; TEMP 97.6–98.6; O2SAT 91–99
[2023-11-10] MEDS: VANCOMYCIN 1GM/200ML 200 ML IV SCH (00:59)
[2023-11-10 06:22] LABS: Anion Gap 5 (5-15); Carbon Dioxide 27 mmol/L (20-30); Chloride 106 mmol/L (98-107); Potassium 4.8 mmol/L (3.5-5.1); Sodium 138 mmol/L (136-145)
[2023-11-10 06:24] LABS: Calcium 8.4 mg/dL (8.7-10.4)
[2023-11-10 06:28] LABS: BUN/Creatinine Ratio 18.5 (10.0-20.0); Basophils # (auto) 0 10 ^3/uL (0-0.2); Blood Urea Nitrogen 23 mg/dL (9-23); Eosinophils # (auto) 0.5 10 ^3/uL (0-0.8); Glucose 138 mg/dL (74-106); Monocytes # (auto) 0.7 10 ^3/uL (0-1.3); White Blood Cell 7.1 10^3/uL (4.4-10.8)
[2023-11-10 06:29] LABS: Albumin 3.2 g/dL (3.2-4.8)
[2023-11-10 06:30] LABS: Basophils % (auto) 0.5 % (0.0-2.0); Hematocrit 27.2 % (36.0-46.0); Hemoglobin 8.2 g/dL (12.2-16.2); Lymphocytes # (auto) 1.7 10 ^3/uL (0.4-5.4); Lymphocytes % (auto) 24.4 % (10.0-50.0); Mean Corpuscular Hgb Conc. 30.3 g/dL (32.0-36.0); Mean Corpuscular Volume 82.6 fL (80.0-100.0); Monocytes % (auto) 10.3 % (0.0-12.0); Neutrophils # (auto) 4.1 10 ^3/uL (1.6-8.6); Neutrophils % (auto) 57.8 % (37.0-80.0); Nucleated Red Blood Cells % 0.1 %; Red Blood Cells 3.29 10^6/uL (4.0-5.20); Red Cell Distribution Width 16.3 % (11.8-14.3)
[2023-11-10 06:31] LABS: Phosphorus 5.6 mg/dL (2.4-5.1)
[2023-11-11 05:00] VITALS: BP 123/70; PULSE 68; RESP 18; TEMP 98; O2SAT 100
[2023-11-11 07:10] LABS: Chloride 106 mmol/L (98-107); Potassium 5.3 mmol/L (3.5-5.1); Sodium 135 mmol/L (136-145)
[2023-11-11 07:11] LABS: Anion Gap 3 (5-15); Carbon Dioxide 26 mmol/L (20-30)
[2023-11-11 07:12] LABS: Calcium 8.7 mg/dL (8.5-10.1)
[2023-11-11 07:16] LABS: BUN/Creatinine Ratio 18.2 (10.0-20.0); Blood Urea Nitrogen 20 mg/dL (9-23); Glucose 114 mg/dL (74-106)
[2023-11-11 07:19] LABS: Basophils # (auto) 0.1 10 ^3/uL (0-0.2); Basophils % (auto) 0.9 % (0.0-2.0); Eosinophils # (auto) 0.6 10 ^3/uL (0-0.8); Hemoglobin 8.1 g/dL (12.2-16.2); Mean Corpuscular Volume 82.6 fL (80.0-100.0); Monocytes # (auto) 0.7 10 ^3/uL (0-1.3); Monocytes % (auto) 8.7 % (0.0-12.0); Neutrophils # (auto) 4.6 10 ^3/uL (1.6-8.6)
[2023-11-11 07:22] LABS: Eosinophils % (auto) 7.3 % (0.0-7.0); Hematocrit 25.7 % (36.0-46.0); Lymphocytes # (auto) 2.1 10 ^3/uL (0.4-5.4); Lymphocytes % (auto) 25.9 % (10.0-50.0); Mean Corpuscular Hgb Conc. 31.5 g/dL (32.0-36.0); Neutrophils % (auto) 57.2 % (37.0-80.0); Nucleated Red Blood Cells % 0.1 %; Red Blood Cells 3.11 10^6/uL (4.0-5.20); Red Cell Distribution Width 16.5 % (11.8-14.3)
[2023-11-11 09:19] VITALS: BP 124/67; PULSE 69; RESP 15; TEMP 97.9; O2SAT 97
[2023-11-11 12:44] VITALS: BP 112/67; PULSE 72; RESP 16; TEMP 98.2; O2SAT 93
[2023-11-11 16:10] LABS: INR 0.97 (0.9-1.15); Partial Thromboplastin Time 27.3 SEC (24.5-34.5); Prothrombin Time 10.2 sec (9.3-11.8)
[2023-11-11 16:35] VITALS: BP 127/76; PULSE 76; RESP 15; TEMP 98; O2SAT 93
[2023-11-11 20:00] VITALS: PULSE 74; RESP 18; O2SAT 95
[2023-11-11 22:00] VITALS: BP 126/76; PULSE 74; RESP 18; TEMP 97.2; O2SAT 95
[2023-11-12 05:00] VITALS: BP 107/69; PULSE 69; RESP 20; TEMP 97.2; O2SAT 94
[2023-11-12 06:56] LABS: Chloride 105 mmol/L (98-107); Sodium 136 mmol/L (136-145)
[2023-11-12 06:57] LABS: Anion Gap 5 (5-15); Calcium 8.8 mg/dL (8.5-10.1); Carbon Dioxide 26 mmol/L (20-30)
[2023-11-12 06:58] LABS: Eosinophils # (auto) 0.5 10 ^3/uL (0-0.8); Hemoglobin 8.3 g/dL (12.2-16.2); Lymphocytes # (auto) 1.7 10 ^3/uL (0.4-5.4); Mean Corpuscular Hemoglobin 25.4 pg (28.0-32.0); Monocytes # (auto) 0.6 10 ^3/uL (0-1.3); Neutrophils # (auto) 4.6 10 ^3/uL (1.6-8.6); Nucleated Red Blood Cells % 0.1 %; White Blood Cell 7.4 10^3/uL (4.4-10.8)
[2023-11-12 07:01] LABS: Basophils # (auto) 0.1 10 ^3/uL (0-0.2); Basophils % (auto) 0.7 % (0.0-2.0); Eosinophils % (auto) 6.4 % (0.0-7.0); Hematocrit 27.4 % (36.0-46.0); Lymphocytes % (auto) 22.6 % (10.0-50.0); Mean Corpuscular Hgb Conc. 30.5 g/dL (32.0-36.0); Mean Corpuscular Volume 83.2 fL (80.0-100.0); Monocytes % (auto) 8.2 % (0.0-12.0); Neutrophils % (auto) 62.1 % (37.0-80.0); Red Blood Cells 3.29 10^6/uL (4.0-5.20); Red Cell Distribution Width 16.3 % (11.8-14.3)
[2023-11-12 07:02] LABS: BUN/Creatinine Ratio 15.4 (10.0-20.0); Blood Urea Nitrogen 21 mg/dL (9-23); Glucose 108 mg/dL (74-106)
[2023-11-12 07:09] LABS: Potassium 5.7 mmol/L (3.5-5.1)
[2023-11-12 07:48] VITALS: RESP 17; O2SAT 96
[2023-11-12 08:00] VITALS: BP 117/77; PULSE 68; RESP 18; TEMP 98.2; O2SAT 98
[2023-11-12 12:35] VITALS: BP 93/55; PULSE 98; RESP 18; TEMP 98.2; O2SAT 98
[2023-11-12] MEDS: LIDOCAINE 1% (LOCAL ANESTH.) PF 5ml SDV ID ONE (13:30)
[2023-11-12] MEDS: SODIUM ZIRCONIUM CYCL 10 GM PAK PO ONE (18:34)
[2023-11-12 20:00] VITALS: RESP 17; O2SAT 96
[2023-11-12] MEDS: SODIUM CHLOR 0.9% PF (SALINE LOCK) 10ML VIAL/SYR IV SCH (21:40)
[2023-11-12] MEDS: SODIUM ZIRCONIUM CYCL 10 GM PAK PO SCH (21:42)
[2023-11-12 22:00] VITALS: BP 168/89; PULSE 79; RESP 20; TEMP 97.7; O2SAT 91
[2023-11-13] VITALS (7 sets, daily range): BP systolic 105–164; BP diastolic 57–90; PULSE 72–84; RESP 16–18; TEMP 98–98.6; O2SAT 90–99
[2023-11-13 06:25] LABS: Chloride 102 mmol/L (98-107); Potassium 5.1 mmol/L (3.5-5.1); Sodium 135 mmol/L (136-145)
[2023-11-13 06:26] LABS: Anion Gap 8 (5-15); Carbon Dioxide 25 mmol/L (20-30)
[2023-11-13 06:27] LABS: Calcium 8.8 mg/dL (8.5-10.1)
[2023-11-13 06:31] LABS: BUN/Creatinine Ratio 18.6 (10.0-20.0); Blood Urea Nitrogen 27 mg/dL (9-23); Glucose 203 mg/dL (74-106)
[2023-11-13] MEDS ORDERED: AML5T PO (10:16)
[2023-11-13] MEDS ORDERED: HYDR-4798 PO (10:16)
[2023-11-13] MEDS: HYDROcodone-ACET 10/325MG TAB PO ONE (22:05)
[2023-11-14 05:48] VITALS: BP 153/67; PULSE 68; RESP 18; TEMP 97.8; O2SAT 99
[2023-11-14 08:15] VITALS: PULSE 74; RESP 20; O2SAT 96
[2023-11-14 09:00] VITALS: BP 168/96; PULSE 74; RESP 20; TEMP 97.5; O2SAT 96
[2023-11-14 12:39] VITALS: BP 153/81; PULSE 72; RESP 20; TEMP 98; O2SAT 94
[2023-11-14] MEDS ORDERED: HYDROcodone-ACET 10/325MG TAB PO PRN (13:30)
== END 2023-11-14 15:38 | disposition left against medical advice (07) | DRG 305 ==
LOC: ER 07:25 → OVERFLOW 11:13 → CENTRAL 13:39
PROVIDERS: ADMIT Internal Medicine; ATTEND Internal Medicine
PROC: 0Y6N0ZC Detachment at Left Foot, Partial 3rd Ray, Open Approach (ICD-10-PCS; principal; 2023-11-07 11:38)
PROC: 02HV33Z Insertion of Infusion Device into Superior Vena Cava, Percutaneous Approach (ICD-10-PCS; 2023-11-12)
PROC: B548ZZA Ultrasonography of Superior Vena Cava, Guidance (ICD-10-PCS; 2023-11-12)
DX: E11.69 Type 2 diabetes mellitus with other specified complication (principal); N17.0 Acute kidney failure with tubular necrosis; M86.172 Other acute osteomyelitis, left ankle and foot; I50.32 Chronic diastolic (congestive) heart failure; I13.0 Hypertensive heart and chronic kidney disease with heart failure and stage 1 through stage 4 chronic kidney disease, or unspecified chronic kidney disease; E11.22 Type 2 diabetes mellitus with diabetic chronic kidney disease; D64.9 Anemia, unspecified; L03.116 Cellulitis of left lower limb; E11.621 Type 2 diabetes mellitus with foot ulcer; E11.51 Type 2 diabetes mellitus with diabetic peripheral angiopathy without gangrene; J45.909 Unspecified asthma, uncomplicated; F17.210 Nicotine dependence, cigarettes, uncomplicated; K21.9 Gastro-esophageal reflux disease without esophagitis; E78.5 Hyperlipidemia, unspecified; N18.31 Chronic kidney disease, stage 3a; E66.01 Morbid (severe) obesity due to excess calories; L97.529 Non-pressure chronic ulcer of other part of left foot with unspecified severity; Z53.29 Procedure and treatment not carried out because of patient's decision for other reasons; G47.33 Obstructive sleep apnea (adult) (pediatric); E11.65 Type 2 diabetes mellitus with hyperglycemia; E87.5 Hyperkalemia; F15.10 Other stimulant abuse, uncomplicated; Z79.4 Long term (current) use of insulin; Z79.82 Long term (current) use of aspirin; Z79.84 Long term (current) use of oral hypoglycemic drugs; Z79.899 Other long term (current) drug therapy; Z87.442 Personal history of urinary calculi; Z83.3 Family history of diabetes mellitus; Z90.49 Acquired absence of other specified parts of digestive tract; Z82.49 Family history of ischemic heart disease and other diseases of the circulatory system; Z68.42 Body mass index [BMI] 45.0-49.9, adult
CPT/HCPCS: 36415; 36569; 36600; 71045; 73700; 73718; 76700; 80048; 80053; 80069; 80074; 80202; 80307; 80320; 81001; 82040; 82140; 82565; 82570; 82805; 82962; 83735; 84100; 84300; 84702; 85025; 85610; 85730; 87040; 87077; 87081; 87086; 87088; 87186; 87205; 93926; 93971; 94660; 97110; 97163; 97530; C9113; G0378; J1335; J1815; J2001; J2250; J2405; J2543; J2704; J3490

== ENCOUNTER 2024-12-26 07:32 | Inpatient (IN) | payer MEDICAID ==
[2024-12-26] VITALS (9 sets, daily range): BP systolic 155–181; BP diastolic 76–91; PULSE 74–104; RESP 16–21; TEMP 97.9–98.4; O2SAT 92–100
[~2024-12-26] VITALS: Ht 167.6 cm; Wt 132.7 kg
[~2024-12-26 07:32] MED LIST changes: +AML5T PO; -GABA-339 PO; +GABA800T97 PO; -HYDR-4798 PO; +INSU100I4 SC; +PANT40TA2 PO; +TIZA4CAP PO
--- NOTE | 2024-12-26 08:20 | ED.PDOC ---
History of Present Illness HPI Comments 49 year old female presents to the ED with chief complaint of flu-like illness. Patient reports that she has been experiencing body aches with associated cough with green phlegm production, sore throat, headache, and nausea for the past 3 days. Patient denies any sick contacts at home. Patient states she took some Mucinex with no relief in symptoms. Patient denies any vomiting, diarrhea, abdominal pain, fever, chills, chest pain, or SOB. Chief Complaint: Flu like Time Seen by MD: 07:55 Primary Care Provider: jason Reviewed Notes: Nurses Notes, Medications, Allergies Allergies: Coded Allergies: NO KNOWN ALLERGIES (Unverified , 10/17/23) Home Meds Active Scripts Clindamycin HCl (Clindamycin Hydrochloride) 300 Mg Cap, 300 MG PO Q8HR for 7 Days, #21 CAP Prov:ANAND LOPEZ MD 11/25/23 Amlodipine Besylate (NORVASC TABLET) 5 Mg Tb, 5 MG PO DAILY, #30 TAB 5 Refills Prov:ANAND LOPEZ MD 11/13/23 Empagliflozin (Jardiance) 10 Mg Tab, 10 MG PO DAILY for 30 Days, #30 TAB Prov:SARAY CABRERA MD 10/22/23 Insulin Glargine (Basaglar Kwikpen) 100 Unit/Ml Inj, 25 UNIT SC QAM for 30 Days, #30 INJ Prov:SARAY CABRERA MD 10/22/23 Metformin Hydrochloride (Metformin Hcl) 1,000 Mg Tab, 1 TAB PO BID for 30 Days, #60 TAB 5 Refills Prov:SARAY CABRERA MD 10/22/23 Reported Medications Insulin Lispro (Humalog Kwikpen) 100 Unit/Ml Inj, 8 UNIT SC TID Inject 8 units subcutaneously 3 times daily before meals as directed 11/03/23 Tizanidine Hydrochloride (Zanaflex) 4 Mg Cap, 2 MG PO TID PRN for CHRONIC PAIN 11/03/23 Pantoprazole Sodium Sesquihydr (Protonix) 40 Mg Tab, 1 TAB PO DAILY 11/03/23 Gabapentin (Gabapentin) 800 Mg Tab, 1 TAB PO DAILY 11/03/23 Diphenhydramine Hcl (Benadryl Allergy) 25 Mg Cap, 1 CAP PO QPM, #30 CAP 1 Refill 10/17/23 Albuterol Sulfate (Albuterol Sulfate) 2 Mg Tab, 2 MG PO Q6HP PRN for SHORTNESS OF BREATH, MG 10/25/19 Information Source: Patient Mode of Arrival: Wheelchair Severity: Moderate Timing: Days Duration: Since onset Prehospital treatment: None Past Medical History PAST MEDICAL HISTORY: Asthma, CHF, DM, GERD, Kidney Stones Surgical History: Cholecystectomy, , Tonsillectomy, Tubal Ligation [employer] History: 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 History Family History Family History: Family hx of DM Social History Smoker: Cigarettes, Less Than 1 Pack/Day Alcohol: Denies ETOH Use Drugs: Marijuana, Methamphetamine Lives In: Home Constitutional: reports: others (Body aches); denies: chills, diaphoresis, fatigue, fever, malaise, sweats, weakness EENTM: reports: throat pain; denies: blurred vision, double vision, ear bleeding, ear discharge, ear drainage, ear pain, ear ringing, eye pain, eye redness, hearing loss, mouth pain, mouth swelling, nasal discharge, nose bleeding, nose congestion, nose pain, photophobia, tearing, throat swelling, voice changes, others Respiratory: reports: cough; denies: hemoptysis, orthopnea, SOB at rest, shortness of breath, SOB with excertion, stridor, wheezing, others Cardiovascular: denies: chest pain, dizzy spells, diaphoresis, Dyspnea on exertion, edema, irregular heart beat, left arm pain, lightheadedness, palpitations, PND, syncope, others Gastrointestinal: reports: nausea; denies: abdomen distended, abdominal pain, blood streaked bowels, constipated, diarrhea, dysphagia, difficulty swallowing, hematemesis, melena, poor appetite, poor fluid intake, rectal bleeding, rectal pain, vomiting, others Genitourinary: denies: abnormal vagina bleeding, burning, dyspareunia, dysuria, flank pain, frequency, hematuria, incontinence, pain, , vagina discharge, urgency, others Neurological: reports: headache; denies: dizziness, fainting, left sided numbness, left sided weakness, numbness, paresthesia, pre-existing deficit, r ight sided numbness, right sided weakness, seizure, speech problems, tingling, tremors, weakness, others Musculoskeletal: denies: back pain, gout, joint pain, joint swelling, muscle pain, muscle stiffness, neck pain, others Integumetry: denies: bruises, change in color, change in hair/nails, dryness, laceration, lesions, lumps, rash, wounds, others Allergic/Immunocompromised: denies: Difficulty Healing, Frequent Infections, Hives, Itching, others Hematologic/Lymphatic: denies: anemia, blood clots, easy bleeding, easy bruising, swollen glands, others Endocrine: denies: excessive hunger, excessive sweating, excessive thirst, excessive urination, flushing, intolerance to cold, intolerance to heat, unexplained weight gain, unexplained weight loss, others Psychiatric: denies: anxiety, bipolar disorder, depression, hopeless, panic disorder, schizophrenia, sleepless, suicidal, others All Other Systems: Reviewed and Negative Physical Exam General Appearance: Moderate Distress, Normal HEENT: Normal ENT Inspection, PERRL/EOMI, Pharyngeal Erythema, TMs Normal Neck: Full Range of Motion, Non-Tender, Normal, Normal Inspection Respiratory: Chest Non-Tender, No Accessory Muscle Use, Other (Coarse breath sounds) Cardiovascular: No Edema, No JVD, No Murmur, No Gallop, Normal Peripheral Pulses, Regular Rate/Rhythm Breast Exam: Deferred Gastrointestinal: No Organomegaly, Non Tender, No Pulsatile Mass, Normal Bowel Sounds, Soft Genitalia: Deferred Pelvic: Deferred Rectal: Deferred Extremities: No calf tenderness, Normal capillary refill, Normal inspection, Normal range of motion, Non-tender, Pedal edema Musculoskeletal : Apperance: Normal Neurologic: Alert, electric motor rebuilder II-XII nml as Tested, No Motor Deficits, Normal Affect, Normal Mood, No Sensory Deficits Cerebellar Function: NOT DONE Reflexes: NOT DONE Skin: Dry, Normal Color, Warm Peripheral Pulses: 3+ Radial (R), 3+ Radial (L) Lymphatic: No Adenopathy Was a procedure done? Was a procedure done?: No Differential Dx Considerations may include: Pneumonitis Electrolyte imbalance X-Ray, Labs, Meds, VS Vital Signs Date Time Temp Pulse Resp B/P (MAP) Pulse Ox O2 Delivery O2 Flow Rate FiO2 12/26/24 09:10 80 16 155/91 (112) 95 12/26/24 08:57 80 16 95 Nasal Cannula* 2 28 12/26/24 08:21 84 18 93 Room Air 12/26/24 08:21 98.2 84 22 144/88 (106) 93 98.2 12/26/24 07:40 97.9 86 16 126/77 (93) 94 97.9 Lab Test 12/26/24 10:55 12/26/24 09:36 12/26/24 09:06 Range/Units Influenza Type A Antigen Pending Influenza Type B Antigen Pending SARS-CoV-2 Antigen (Rapid) Pending White Blood Count 11.4 H 4.4-10.8 10^3/uL Red Blood Count 3.94 L 4.0-5.20 10^6/uL Hemoglobin 10.7 L 12.2-16.2 g/dL Hematocrit 33.3 L 36.0-46.0 % Mean Corpuscular Volume 84.7 80.0-100.0 fL Mean Corpuscular Hemoglobin 27.1 L 28.0-32.0 pg Mean Corpuscular Hemoglobin Concent 32.0 32.0-36.0 g/dL Red Cell Distribution Width 14.2 11.8-14.3 % Platelet Count 209 140-450 10^3/uL Mean Platelet Volume 7.1 6.9-10.8 fL Neutrophils (%) (Auto) 75.2 37.0-80.0 % Lymphocytes (%) (Auto) 11.4 10.0-50.0 % Monocytes (%) (Auto) 10.6 0.0-12.0 % Eosinophils (%) (Auto) 2.3 0.0-7.0 % Basophils (%) (Auto) 0.5 0.0-2.0 % Neutrophils # (Auto) 8.6 1.6-8.6 10 ^3/uL Lymphocytes # (Auto) 1.3 0.4-5.4 10 ^3/uL Monocytes # (Auto) 1.2 0-1.3 10 ^3/uL Eosinophils # (Auto) 0.3 0-0.8 10 ^3/uL Basophils # (Auto) 0.1 0-0.2 10 ^3/uL Nucleated Red Blood Cells 0.0 % Sodium Level 133 L 136-145 mmol/L Potassium Level 5.6 *H 3.5-5.1 mmol/L Chloride Level 102 98-107 mmol/L Carbon Dioxide Level 23 20-31 mmol/L Anion Gap 8 5-15 Blood Urea Nitrogen 39 H 9-23 mg/dL Creatinine 1.83 H 0.550-1.02 mg/dL Glomerular Filtration Rate Calc 34 >90 mL/min BUN/Creatinine Ratio 21.3 H 10.0-20.0 Serum Glucose 403 *H 74-106 mg/dL Calcium Level 8.6 L 8.7-10.4 mg/dL Troponin I High Sensitivity 5 </=34 ng/L B-Type Natriuretic Peptide 172.15 0-100 pg/mL Current Medications Medications (Trade) Dose Ordered Sig/Tricia Route Start Time Stop Time Status Last Admin Sodium Chloride 1,000 ml @ 150 mls/hr Q6H40M ONCE IV 12/26/24 08:30 12/26/24 15:09 12/26/24 08:49 Methylprednisolone Sodium Succinate (Solu Medrol) 125 mg ONCE ONCE IV 12/26/24 08:45 12/26/24 08:46 DC 12/26/24 08:58 Azithromycin 250 ml @ 125 mls/hr ONCE ONCE IV 12/26/24 08:45 12/26/24 10:44 DC 12/26/24 08:58 Ibuprofen (Motrin Tablet) 600 mg ONCE ONCE PO 12/26/24 09:00 12/26/24 09:01 DC 12/26/24 08:58 Patient alert. Complaining of shortness a breath. Vitals stable. Moving all extremities. Has pedal edema. Possible pneumonitis. Establish intravenous access. Was given steroid. Was given azithromycin. Continue monitoring. Time of 1ST Reevaluation: 08:55 Reevaluation 1ST: Unchanged Patient Education/Counseling: Diagnosis, Treatment Family Education/Counseling: No Family Present Additional Information Previous visit documents reviewed: 11/22/23 for left leg cellulitis The following tests were ordered, and results were reviewed by me: Additional Information was gathered from interviewing the following independent historians: I reviewed and agreed with the following test results read by other providers: I discussed treatment and results with medical personnel and: Patient Comprehensive systems review obtained and negative except for what is stated in the HPI. Departure 1 Departure Time of Disposition: 08:35 Impression: Primary Impression: Uncontrolled diabetes mellitus Qualified Codes: E13.65 - Other specified diabetes mellitus with hyperglycemia Additional Impressions: Pneumonitis Hyperkalemia Pneumonia, unspecified organism Qualified Codes: J18.9 - Pneumonia, unspecified organism Disposition: ADMITTED INPATIENT Admit to: Med Surg Condition: Guarded Critical Care Note Critical Care Time?: Yes (90 min-critical care time only) Critical care comment: Pneumonia hyperkalemia Stability Stability form required: No Heart Score Heart Score: Heart Score Response (Comments) Value History N/A 0 EKG N/A 0 Age N/A 0 Risk Factors N/A 0 Troponin N/A 0 Total 0 I personally scribed for DIANE BARRIENTOS MD ([email or web address]) on 12/26/24 at 08:20. Electronically submitted by Chandan Mei ([email or web address]). DIANE BARRIENTOS MD Dec 26, 2024 08:20
[2024-12-26] MEDS: SODIUM CHLORIDE 0.9% 1,000 ML IV ONE (08:49)
[2024-12-26] MEDS: methylPREDNISolone SOD SUCC 125 MG/2 ML VL IV ONE (08:58)
[2024-12-26] MEDS: IBUPROFEN 600 MG TAB PO ONE (08:58)
[2024-12-26] MEDS: AZITHROMYCIN 500MG/ 250ML 250 ML IV ONE (08:58)
[2024-12-26 09:43] LABS: Basophils # (auto) 0.1 10 ^3/uL (0-0.2); Basophils % (auto) 0.5 % (0.0-2.0); Eosinophils # (auto) 0.3 10 ^3/uL (0-0.8); Eosinophils % (auto) 2.3 % (0.0-7.0); Hematocrit 33.3 % (36.0-46.0); Hemoglobin 10.7 g/dL (12.2-16.2); Lymphocytes # (auto) 1.3 10 ^3/uL (0.4-5.4); Lymphocytes % (auto) 11.4 % (10.0-50.0); Mean Corpuscular Hemoglobin 27.1 pg (28.0-32.0); Mean Corpuscular Volume 84.7 fL (80.0-100.0); Monocytes # (auto) 1.2 10 ^3/uL (0-1.3); Monocytes % (auto) 10.6 % (0.0-12.0); Neutrophils # (auto) 8.6 10 ^3/uL (1.6-8.6); Neutrophils % (auto) 75.2 % (37.0-80.0); Platelet Count (auto) 209 10^3/uL (140-450); Red Blood Cells 3.94 10^6/uL (4.0-5.20); Red Cell Distribution Width 14.2 % (11.8-14.3); White Blood Cell 11.4 10^3/uL (4.4-10.8)
[2024-12-26 10:15] LABS: Chloride 102 mmol/L (98-107)
[2024-12-26 10:16] LABS: Anion Gap 8 (5-15); Carbon Dioxide 23 mmol/L (20-31)
[2024-12-26 10:21] LABS: BUN/Creatinine Ratio 21.3 (10.0-20.0)
--- NOTE | 2024-12-26 10:33 | DVH ---
EXAM: XY CHEST PORTABLE HISTORY: sob COMPARISON: XY CHEST PORTABLE on DOS: 11/12/23, XY CHEST XRAY 1 VIEW on DOS: 11/08/23, XY CHEST PORTABL E on DOS: 10/18/23, XY CHEST PORTABLE on DOS: 10/16/23, XY CHEST PORTABLE on DOS: 10/14/23, chest CT cecy ed 11/22/2023 TECHNIQUE: Portable AP view of the chest was performed. FINDINGS: Are patchy infiltrates in the left mid to lower lung. No pneumothorax. The heart is enlarg ed. IMPRESSION: 1. Pneumonia in the left mid to lower lung. 2. Cardiomegaly.
--- NOTE | 2024-12-26 10:34 | DVHHP2 ---
History of Present Illness Reason for Visit: Flu-like symptoms History of Present Illness 49-year-old female past medical history asthma CHF diabetes GERDs kidney stones sleep apnea DVT hypertension surgical history gallbladder surgery tonsillectomy tubal ligation chief complaint patient comes in with flu-like symptoms body aches brings phlegm and sore throat going on for three days. Patient also has a cough and some shortness of the breath. Patient states she has not taken any medications or seen a doctor greater than two years. She is not even taking medication for her diabetes. She does not even have a sleep apnea machine for her sleep apnea. She currently not on blood thinners for history of DVTs she has not been on medications in quite some time. It was mentioned she was just recently round her sick grandson. When evaluating patient's labs and imaging looks like sodium was 133 creatinine is 1.83 and 39 white count was 11.4 hemoglobin was 10.7 33.3 troponin was negative BNP was 172.15. Patient was given azithromycin Solu-Medrol IV fluids in the ED prior to admission. We will admit provide IV antibiotics for acute pneumonia which was found on chest x-ray IV hydration and workup for heart failure Past Medical History See HPI above Past Surgical History See HPI above Family History Was exposed by a sick grandson Past Social History The patient lives at home, denies smoking, alcohol or illicit drugs abuse. Review of Systems Constitutional: Yes: Fever, Chills, Weakness Eyes: No: Pain, Vision change, Conjunctivae inflammation, Eyelid inflammation, Other, Redness ENT: No: Ear pain, Ear discharge, Nose pain, Nose discharge, Nose congestion, Mouth pain, Mouth swelling, Throat pain, Throat swelling, Other Respiratory: Cough, Shortness of breath, Sputum; No: Dry, SOB with excertion, Wheezing, Hemoptysis, Pleuritic Pain, Wheezing, Other Cardiovascular: No: Chest Pain, Palpitations, Orthopnea, Paroxysmal Noc. Dyspnea, Edema, Lt Headedness, Other Gastrointestinal: Nausea, Vomiting; No: Abdominal Pain, Diarrhea, Constipation, Melena, Hematochezia, Other Genitourinary: No Dysuria, No Frequency, No Incontinence, No Hematuria, No Retention, No Other Musculoskeletal: No: other, neck pain, shoulder pain, arm pain, back pain, hand pain, leg pain, foot pain Skin: No: Rash, Lesions, Jaundice, Bruising, Other Neurological: Weakness; No: Numbness, Incoordination, Change in speech, Confusion, Seizures, Other Allergies: Coded Allergies: Levofloxacin (Verified Allergy, Mild, 12/26/24) Exam Vital Signs Vital Signs Date Time Temp Pulse Resp B/P (MAP) Pulse Ox O2 Delivery O2 Flow Rate FiO2 12/26/24 09:10 80 16 155/91 (112) 95 12/26/24 08:57 Nasal Cannula* 2 28 12/26/24 08:21 98.2 98.2 General Appearance: Alert, Oriented X3, Cooperative, Other (Weakness) HEENT: Atraumatic, PERRLA, EOMI, Mucous membr. moist/pink Respiratory: Other (Crackles heard in the lung) Cardiovascular: Regular rate, Normal S1, Normal S2, No murmurs Abdominal: Normal bowel sounds, Soft, No tenderness, No hepatospenomegaly, No masses Extremities: No clubbing, No cyanosis, No edema, Normal pulses, No tenderness/swelling Skin: No rashes, No breakdown, No significant lesion Neuro: Other (Neuro nonfocal) Psych/Mental Status: Mental status NL, Mood NL Labs/Xrays Chest x-ray shows pneumonia I reviewed labs, imaging CT scan abdomen pelvis, EKG and all diagnostic studies on this patient from ED records and the medical chart Labs Test 12/26/24 09:36 12/26/24 09:06 Range/Units White Blood Count 11.4 H 4.4-10.8 10^3/uL Red Blood Count 3.94 L 4.0-5.20 10^6/uL Hemoglobin 10.7 L 12.2-16.2 g/dL Hematocrit 33.3 L 36.0-46.0 % Mean Corpuscular Volume 84.7 80.0-100.0 fL Mean Corpuscular Hemoglobin 27.1 L 28.0-32.0 pg Mean Corpuscular Hemoglobin Concent 32.0 32.0-36.0 g/dL Red Cell Distribution Width 14.2 11.8-14.3 % Platelet Count 209 140-450 10^3/uL Mean Platelet Volume 7.1 6.9-10.8 fL Neutrophils (%) (Auto) 75.2 37.0-80.0 % Lymphocytes (%) (Auto) 11.4 10.0-50.0 % Monocytes (%) (Auto) 10.6 0.0-12.0 % Eosinophils (%) (Auto) 2.3 0.0-7.0 % Basophils (%) (Auto) 0.5 0.0-2.0 % Neutrophils # (Auto) 8.6 1.6-8.6 10 ^3/uL Lymphocytes # (Auto) 1.3 0.4-5.4 10 ^3/uL Monocytes # (Auto) 1.2 0-1.3 10 ^3/uL Eosinophils # (Auto) 0.3 0-0.8 10 ^3/uL Basophils # (Auto) 0.1 0-0.2 10 ^3/uL Nucleated Red Blood Cells 0.0 % Troponin I High Sensitivity 5 </=34 ng/L B-Type Natriuretic Peptide 172.15 0-100 pg/mL Assessment/Plan Assessment/Plan acute mild hypoxic resp failure likely pna vs chf found on cxr ordered bnp ordered Levaquin ordered covid and influenza follow up results ordered sputum culture fu results o2 to keep sats >92% acute left lung bacterial pna community acquired found on cxr ordered levaquin for now ordered sputum culture acute on chronic diastolic/systolic heart failure elevated bnp cxr no fluid overload seen in lungs trop negative ordered echo fu results cards consult fu results acute leukocytosis likely from pna cont ceftriaxone and azithromax for now uncontrolled type 2 dm d/t medication non compliance without dka ordered accucheck ac hs with sliding scale rounding team to order hemoglobin a1c ordered beta oh fu results acute hyperkalemia ordered hyperkalemia protocol in er fu k ordered mag phos fu results acute patel likely from uncontrolled bp and glucose ordered urine sodium and crea to check fena ordered iv hydration for now chronic problems asthma albuterol/atrovent prn chf dm ISS q4h for now beta oh gerds protonix kidney stones dvt lovenox will reorder us to eval for dvt htn sleep apnea cpap machine ordered fen/ppx diet hl scd protonix lovenox plan admit to tele cards consult fu results Plan discussed with: Patient Date of Service: Dec 26, 2024 Billing Provider: MARINO RIBEIRO DNP Common Visit Codes: [id number] INP/OBS CARE (HIGH) MARINO RIBEIRO DNP Dec 26, 2024 10:34
[2024-12-26 11:01] LABS: Blood Urea Nitrogen 39 mg/dL (9-23); Calcium 8.6 mg/dL (8.7-10.4); Glucose 403 mg/dL (74-106); Potassium 5.6 mmol/L (3.5-5.1); Sodium 133 mmol/L (136-145)
[2024-12-26] MEDS: ALBUTEROL SULF 2.5 MG/0.5ML(0.5%) NEB SOLN NEB ONE ×2 (11:12→18:01)
[2024-12-26] MEDS: cefTRIAXone 1GM/50ML D5W 50 ML IV ONE (11:17)
[2024-12-26] MEDS ORDERED: ONDANSETRON HCL 4 MG/2 ML VIAL IV PRN (11:30)
[2024-12-26] MEDS ORDERED: NITROGLYCERIN 0.4 MG SL TAB SL PRN (11:30)
[2024-12-26] MEDS: DEXTROSE (50%) 50ML SYRG IV ONE ×2 (11:30→17:45)
[2024-12-26] MEDS ORDERED: DOCUSATE SOD 100 MG CAP PO PRN (11:30)
[2024-12-26] MEDS ORDERED: DEXTROSE (50%) 50ML SYRG IV PRN (11:30)
[2024-12-26] MEDS: SODIUM CHLORIDE 0.9% 1,000 ML IV SCH (11:34)
[2024-12-26] MEDS: SODIUM ZIRCONIUM CYCL 10 GM PAK PO ONE ×2 (11:35→18:53)
[2024-12-26] MEDS: CALCIUM GLUC 1,000mg/50ml-NS 50 ML IV ONE ×2 (11:35→20:49)
[2024-12-26] MEDS: levoFLOXacin 500MG 100 ML IV ONE (11:40)
[2024-12-26] MEDS: SODIUM BICARB 8.4% 50Meq/50ml SYR INJ IV ONE ×2 (11:43→19:18)
[2024-12-26] MEDS: FUROSEMIDE 20 MG/2 ML VIAL IV ONE (11:44)
[2024-12-26] MEDS: InsuLIN REG 1unit/0.01ml Soln (100units/ml) IV ONE ×3 (11:45→19:24)
[2024-12-26 12:00] LABS: COVID19 ANTIGEN SOFIA FIA NEGATIVE (NEGATIVE)
[2024-12-26] MEDS: ACCU-CHEK COMFORT CURVE STRIP VI SCH ×3 (12:02→20:52)
[2024-12-26] MEDS: InsuLIN REG 1unit/0.01ml Soln (100units/ml) SC SCH (12:06)
--- NOTE | 2024-12-26 12:35 | DVHINCON2 ---
Date of service: Dec 26, [address] Johana Bragg Reason for Consultation VANIA History of Present Illness 49 Y/O F with history of DM, HTN, Lt third toe amputation, diastolic CHF, GERD, and peripheral neuropathy presented with chief complaint of generalized weakness, and flu like symptoms. In ER patient is hypoxic , and was therefore placed on supplemental oxygen. CXR shows Lt lung infiltrate. Labs significant for Na: 133, K: 5.6 mmol/l, Cr: 1.83 mg/dl. Baseline Cr: 1.2 - 1.3 mg/dl. Glu: 403, bicarb: 23, A, WBC: 11.4, Hb: 10.7 g/dl. She is admitted for pneumonia and was started on IV fluids and IV antibiotics. Nephrology consulted for VANIA, and hyperkalemia Past Medical History DM,HTN,CHF, GERD, and peripheral neuropathy Past Surgical History Toe amputation Allergies: Coded Allergies: Levofloxacin (Verified Allergy, Mild, 12/26/24) Home Meds Active Scripts Clindamycin HCl (Clindamycin Hydrochloride) 300 Mg Cap, 300 MG PO Q8HR for 7 Days, #21 CAP Prov:ANAND LOPEZ MD 11/25/23 Amlodipine Besylate (NORVASC TABLET) 5 Mg Tb, 5 MG PO DAILY, #30 TAB 5 Refills Prov:ANAND LOPEZ MD 11/13/23 Empagliflozin (Jardiance) 10 Mg Tab, 10 MG PO DAILY for 30 Days, #30 TAB Prov:SARAY CABRERA MD 10/22/23 Insulin Glargine (Basaglar Kwikpen) 100 Unit/Ml Inj, 25 UNIT SC QAM for 30 Days, #30 INJ Prov:SARAY CABRERA MD 10/22/23 Metformin Hydrochloride (Metformin Hcl) 1,000 Mg Tab, 1 TAB PO BID for 30 Days, #60 TAB 5 Refills Prov:SARAY CABRERA MD 10/22/23 Reported Medications Insulin Lispro (Humalog Kwikpen) 100 Unit/Ml Inj, 8 UNIT SC TID Inject 8 units subcutaneously 3 times daily before meals as directed 11/03/23 Tizanidine Hydrochloride (Zanaflex) 4 Mg Cap, 2 MG PO TID PRN for CHRONIC PAIN 11/03/23 Pantoprazole Sodium Sesquihydr (Protonix) 40 Mg Tab, 1 TAB PO DAILY 11/03/23 Gabapentin (Gabapentin) 800 Mg Tab, 1 TAB PO DAILY 11/03/23 Diphenhydramine Hcl (Benadryl Allergy) 25 Mg Cap, 1 CAP PO QPM, #30 CAP 1 Refill 10/17/23 Albuterol Sulfate (Albuterol Sulfate) 2 Mg Tab, 2 MG PO Q6HP PRN for SHORTNESS OF BREATH, MG 10/25/19 Current Medications Current Medications Medications (Trade) Dose Ordered Sig/Tricia Route PRN Reason Start Time Stop Time Status Last Admin Levofloxacin/ Dextrose 100 ml @ 100 mls/hr DAILY IV 12/27/24 10:00 Amlodipine Besylate (Norvasc Tablet) 5 mg DAILY PO 12/27/24 10:00 Diagnostic Test (Pha) (Accu-Chek Comfort Curve T) 1 strip IQ4HR 12/26/24 12:00 12/26/24 12:02 Insulin Human Regular (InsuLIN R) IQ4HR SC 12/26/24 12:00 12/26/24 12:06 Dextrose 50 ml UD PRN IV Blood Sugar LESS THAN 60 12/26/24 11:30 Sodium Chloride 1,000 ml @ 120 mls/hr Q8H20M IV 12/26/24 11:30 12/26/24 11:34 Ondansetron HCl (Zofran) 4 mg Q4HP PRN IV NAUSEA / VOMITING 12/26/24 11:30 Docusate Sodium (Colace Capsule) 100 mg BIDPRN PRN PO FOR CONSTIPATION 12/26/24 11:30 Enoxaparin Sodium (Lovenox) 40 mg DAILY SC 12/27/24 10:00 Morphine Sulfate 2 mg Q4HPRN PRN IV SEVERE PAIN (7-10 PAIN SCALE) 12/26/24 11:30 Nitroglycerin (Ntrostat Sublingual) 0.4 mg Q5MINP PRN SL FOR CHEST PAIN 12/26/24 11:30 Albuterol (Ventolin Medneb) 2.5 mg Q4HPRN PRN NEB SHORTNESS OF BREATH 12/26/24 11:30 Ipratropium [place] (Atrovent Medneb) 0.5 mg Q4HPRN PRN NEB SHORTNESS OF BREATH 12/26/24 11:30 Metoprolol Tartrate (Lopressor Tablet) 12.5 mg BID PO 12/26/24 22:00 Family History: Diabetes mellitus G8 FATHER Hypertension G8 MOTHER G8 FATHER Review of Systems as per HPi, all other systems are reviewed and are negative H&P Exam Vital Signs/I&O Vital Sign Date Time Temp Pulse Resp B/P (MAP) Pulse Ox O2 Delivery O2 Flow Rate FiO2 12/26/24 12:01 93 20 140/76 (97) 92 12/26/24 11:30 98.2 2.0 28 98.2 12/26/24 11:12 Nasal Cannula* Physical Exam Gen: NAD, AAOx3 HEENT: NC, AT Lungs: decreased breath sounds Lt lung base Cardiac: RRR, no murmur Abd: soft, no distention Ext: no edema Neuro: no focal deficits Labs/Diagnostic Data Labs/Diagnostic Data Laboratory Tests Test 12/26/24 11:54 12/26/24 11:23 12/26/24 10:55 12/26/24 09:36 Range/Units Lactic Acid Level 1.4 0.4-2.0 mmol/L POC Glucose 351 H 70-106 mg/dl SARS-CoV-2 Antigen (Rapid) Negative NEGATIVE White Blood Count 11.4 H 4.4-10.8 10^3/uL Red Blood Count 3.94 L 4.0-5.20 10^6/uL Hemoglobin 10.7 L 12.2-16.2 g/dL Hematocrit 33.3 L 36.0-46.0 % Mean Corpuscular Volume 84.7 80.0-100.0 fL Mean Corpuscular Hemoglobin 27.1 L 28.0-32.0 pg Mean Corpuscular Hemoglobin Concent 32.0 32.0-36.0 g/dL Red Cell Distribution Width 14.2 11.8-14.3 % Platelet Count 209 140-450 10^3/uL Mean Platelet Volume 7.1 6.9-10.8 fL Neutrophils (%) (Auto) 75.2 37.0-80.0 % Lymphocytes (%) (Auto) 11.4 10.0-50.0 % Monocytes (%) (Auto) 10.6 0.0-12.0 % Eosinophils (%) (Auto) 2.3 0.0-7.0 % Basophils (%) (Auto) 0.5 0.0-2.0 % Neutrophils # (Auto) 8.6 1.6-8.6 10 ^3/uL Lymphocytes # (Auto) 1.3 0.4-5.4 10 ^3/uL Monocytes # (Auto) 1.2 0-1.3 10 ^3/uL Eosinophils # (Auto) 0.3 0-0.8 10 ^3/uL Basophils # (Auto) 0.1 0-0.2 10 ^3/uL Nucleated Red Blood Cells 0.0 % Test 12/26/24 09:06 Range/Units Sodium Level 133 L 136-145 mmol/L Potassium Level 5.6 *H 3.5-5.1 mmol/L Chloride Level 102 98-107 mmol/L Carbon Dioxide Level 23 20-31 mmol/L Anion Gap 8 5-15 Blood Urea Nitrogen 39 H 9-23 mg/dL Creatinine 1.83 H 0.550-1.02 mg/dL Glomerular Filtration Rate Calc 34 >90 mL/min BUN/Creatinine Ratio 21.3 H 10.0-20.0 Serum Glucose 403 *H 74-106 mg/dL Calcium Level 8.6 L 8.7-10.4 mg/dL Troponin I High Sensitivity 5 </=34 ng/L B-Type Natriuretic Peptide 172.15 0-100 pg/mL Assessment VANIA, prerenal Hyperkalemia Lt lung pneumonia DM with hyperglycemia HTN, not controlled h/o Lt 3rd toe amputation Chronic Diastolic CHF (EF: 55% on ) GERD Peripheral neuropathy Plan: s/p Lokelma Continue Amlodipine 5 mg daily Start Metoprolol 12.5 mg PO BID Continue NS at 120 cc/h Continue IV antibiotics obtain UPCR Obtain Renal US f/u blood cultures daily BMP Strict I&Os Plan discussed with: Patient YI LYONS MD Dec 26, 2024 12:35
--- NOTE | 2024-12-26 13:50 | DVH ---
US KIDNEY INDICATION: renal dysfunction TECHNIQUE: Multiple real-time sonographic images of the kidneys and bladder were obtained. COMPARISON: Renal dysfunction e FINDINGS: The right kidney measures 11.1 cm in length, which is normal in size. There is normal echogenicity of the right kidney. No hydronephrosis. The left kidney measures 10.9 cm in length, which is normal in size. There is normal echogenicity of the left kidney. No hydronephrosis. There is a 2.1 x 1.9 x 1 cm anechoic cortical lesion left kidney consistent with a cyst. No large intraluminal masses are seen in the bladder. Prior to voiding the bladder volume measures volume 656 cc. Bladder wall measures 0.7 mm Patient not void. IMPRESSION: 1. Right kidney measures 11.1 cm; left kidney measures 10.9 cm. 2. No hydronephrosis bilaterally 3. 2 cm cortical cysts left kidney 4. Prevoid bladder volume 656 mL. Patient had no urge void 5. Bladder wall 2.7 mm HS:Y
--- NOTE | 2024-12-26 13:58 | DVH ---
Bilateral lower extremity venous duplex Clinical History: eval for dvt to ble Comparison: US LT LOWER DVT on DOS: 11/24/23, US LT LOWER DVT on DOS: 11/01/23, US LT LOWER DVT on DOS: 10/13/23 Technique: Duplex Doppler evaluation of the deep venous systems of both lower extremities from the common femora l veins to the popliteal veins including color Doppler and spectral/pulsed waveform analysis was perf ormed. Findings: RIGHT SIDE: The common femoral vein demonstrates appropriate compressibility and waveform variability. There is compressibility/patency of the great saphenous vein at the proximal thigh. The femoral vein demonstrates appropriate compressibility and waveform variability. The deep femoral vein demonstrates appropriate compressibility and waveform variability. The popliteal vein demonstrates appropriate compressibility and waveform variability. There is normal compressibility at the tibioperoneal trunk. LEFT SIDE: The common femoral vein demonstrates appropriate compressibility and waveform variability. There is compressibility/patency of the great saphenous vein at the proximal thigh. The femoral vein demonstrates appropriate compressibility and waveform variability. The deep femoral vein demonstrates appropriate compressibility and waveform variability. The popliteal vein demonstrates appropriate compressibility and waveform variability. There is normal compressibility at the tibioperoneal trunk. Impression: 1. No right or left femoropopliteal venous thrombosis. HS:Y
[2024-12-26] MEDS: MORPHINE SULFATE INJ 2 MG/ml SYRG IV PRN (15:05)
[2024-12-26 15:54] LABS: Chloride 103 mmol/L (98-107)
[2024-12-26 15:55] LABS: Anion Gap 6 (5-15); Calcium 8.8 mg/dL (8.7-10.4); Carbon Dioxide 25 mmol/L (20-31)
[2024-12-26 16:00] LABS: BUN/Creatinine Ratio 19.8 (10.0-20.0)
[2024-12-26 16:12] LABS: Sodium 134 mmol/L (136-145)
[2024-12-26 16:13] LABS: Blood Urea Nitrogen 40 mg/dL (9-23)
[2024-12-26 16:14] LABS: Rapid Influenza A Negative (Negative); Rapid Influenza B Negative (Negative)
[2024-12-26 16:15] LABS: Glucose 621 mg/dL (74-106); Potassium 5.7 mmol/L (3.5-5.1)
[2024-12-26] MEDS: ALBUTEROL SULF 2.5 MG/0.5ML(0.5%) NEB SOLN ONE (17:56)
--- NOTE | 2024-12-26 18:45 | DVHSR ---
APPROVED REPORT EXAM: Two-dimensional and M-mode echocardiogram with Doppler and color Doppler. Blood Pressure: 160/76 mmHg INDICATION Eval for cardiac function and ef RISK FACTORS Obesity: Height: 5'6", Weight: 282 DIMENSIONS LVDd5.1 (3.8-5.7cm)LA (2D)4.2 (1.9-4.0cm)Aortic Root3.5 (2.0-3.7cm) LVDs3.4 (2.5-4.0cm)LA (MM) (1.9-4.0cm)Aortic Cusp Exc1.7 (1.5-2.0cm) EF (%) 60.0 (55-70%)Rt. Atrium4.2 (1.9-4.0cm)Asc. Aorta cm IVSd1.1 (0.7-1.1cm)RV (D)4.0 (1.8-2.4cm) PWd1.1 (0.7-1.1cm) Mitral Valve MitralMitral Stenosis E wave1.23m/sMV Mean GR.mmHg A wave1.12m/sMV Peak GR.mmHg E/A ratio1.12D MVAcm2 DECEL [id number] 1/2 [place] Aortic Valve Aortic ValveAortic Stenosis V11.26m/Oral Mean GR.8mmHg V21.84m/Oral Peak GR.14mmHg LVOT Diameter2.2 (1.8-2.4cm)Doppler AVA2.60cm2 Pulmonic Valve V21.26m/s Conclusion NORMAL LV EF AND IS 65% NORMAL VALVES NO EFFUSION NORMAL RV FUNCTION
[2024-12-26] MEDS: hydrALAZINE HCL 20 MG/ML VL IV PRN (18:58)
[2024-12-26] MEDS: FUROSEMIDE 40 MG/4 ML VIAL IV ONE (18:58)
[2024-12-26 19:06] LABS: Base Excess -4.4 mmol/L (-2.0-3.0)
[2024-12-26 19:19] LABS: Anion Gap 8 (5-15); Calcium 8.7 mg/dL (8.7-10.4); Carbon Dioxide 23 mmol/L (20-31); Chloride 98 mmol/L (98-107)
[2024-12-26 19:25] LABS: BUN/Creatinine Ratio 21.8 (10.0-20.0)
[2024-12-26 19:27] LABS: Blood Urea Nitrogen 43 mg/dL (9-23); Potassium 5.2 mmol/L (3.5-5.1); Sodium 129 mmol/L (136-145)
[2024-12-26 19:43] LABS: Glucose 698 mg/dL (74-106)
[2024-12-26 20:10] LABS: Urine Bacteria None Seen /hpf (None Seen)
[2024-12-26 20:45] LABS: Urine Blood 1+ /uL (Negative); Urine Clarity Clear (Clear); Urine Color Colorless (Yellow); Urine Protein, UAD 2+ (Negative); Urine Specific Gravity 1.015 (1.001-1.035); Urine Squamous Epithelial Cell None Seen /hpf (<5); Urine Urobilinogen Normal (Negative); Urine WBC < 1 /HPF (0-5); Urine pH 5.5 (5.0-9.0)
[2024-12-26 20:55] LABS: Protein, Urine 143.7 mg/dL (1-14)
[2024-12-26 20:58] LABS: Creatinine, Urine 14.52 mg/dL (30.0-125.0); Urine Protein/Creatinine Ratio 9.9
[2024-12-26] MEDS: INSULIN DRIP 100 UNIT/100ML 100 ML IV SCH ×2 (21:00→22:30)
[2024-12-26] MEDS ORDERED: InsuLIN REG 1unit/0.01ml Soln (100units/ml) SC SCH (22:00)
[2024-12-26] MEDS: METOPROLOL TARTRATE 25 MG TAB PO SCH (23:25)
[2024-12-27] VITALS (19 sets, daily range): BP systolic 112–157; BP diastolic 54–87; PULSE 67–93; RESP 16–21; TEMP 97.9–98.9; O2SAT 91–100
[2024-12-27] MEDS: InsuLIN REG 1unit/0.01ml Soln (100units/ml) SC ONE (00:35)
[2024-12-27 01:31] LABS: Alanine Aminotransferase 16 U/L (7-40); Albumin 3.6 g/dL (3.2-4.8); Anion Gap 9 (5-15); BUN/Creatinine Ratio 22.8 (10.0-20.0); Carbon Dioxide 21 mmol/L (20-31); Chloride 100 mmol/L (98-107); Potassium 4.5 mmol/L (3.5-5.1); Total Protein 6.4 g/dL (5.7-8.2)
[2024-12-27 01:34] LABS: Alkaline Phosphatase 165 U/L (46-116); Aspartate Aminotransferase 8 U/L (13-40); Blood Urea Nitrogen 42 mg/dL (9-23); Calcium 8.5 mg/dL (8.7-10.4); Sodium 130 mmol/L (136-145)
[2024-12-27 01:35] LABS: Glucose 539 mg/dL (74-106)
[2024-12-27 01:36] LABS: Bilirubin, Total < 0.2 mg/dL (0.2-1.0)
[2024-12-27 03:58] LABS: Basophils # (auto) 0 10 ^3/uL (0-0.2); Basophils % (auto) 0.3 % (0.0-2.0); Eosinophils # (auto) 0 10 ^3/uL (0-0.8); Eosinophils % (auto) 0.1 % (0.0-7.0); Hematocrit 30.7 % (36.0-46.0); Hemoglobin 10.2 g/dL (12.2-16.2); Lymphocytes # (auto) 1.1 10 ^3/uL (0.4-5.4); Mean Corpuscular Hemoglobin 27.4 pg (28.0-32.0); Mean Corpuscular Hgb Conc. 33.3 g/dL (32.0-36.0); Mean Corpuscular Volume 82.4 fL (80.0-100.0); Monocytes # (auto) 1.4 10 ^3/uL (0-1.3); Monocytes % (auto) 10.1 % (0.0-12.0); Neutrophils # (auto) 11.3 10 ^3/uL (1.6-8.6); Neutrophils % (auto) 81.5 % (37.0-80.0); Platelet Count (auto) 246 10^3/uL (140-450); Red Blood Cells 3.73 10^6/uL (4.0-5.20); Red Cell Distribution Width 13.9 % (11.8-14.3); White Blood Cell 13.8 10^3/uL (4.4-10.8)
[2024-12-27] MEDS: DEXTROSE (50%) 50ML SYRG IV PRN (04:21)
[2024-12-27] MEDS ORDERED: DEXTROSE (50%) 50ML SYRG IV PRN (06:30)
[2024-12-27] MEDS ORDERED: InsuLIN REG 1unit/0.01ml Soln (100units/ml) SC SCH (07:00)
[2024-12-27] MEDS: levoFLOXacin 500MG 100 ML IV SCH (07:36)
[2024-12-27] MEDS: amLODIPine BESYLATE 5 MG TAB PO SCH (09:07)
[2024-12-27] MEDS: ENOXAPARIN SOD 40 MG/0.4 ML SYRINGE SC SCH (09:12)
[2024-12-27] MEDS: ACCU-CHEK COMFORT CURVE STRIP VI SCH (11:32)
[2024-12-27] MEDS: InsuLIN REG 1unit/0.01ml Soln (100units/ml) SC SCH (11:33)
[2024-12-27] MEDS: cefTRIAXone 1GM/50ML D5W 50 ML IV SCH (11:40)
[2024-12-27] MEDS: AZITHROMYCIN 500MG/ 250ML 250 ML IV SCH (11:55)
[2024-12-27] MEDS: INSULIN LANTUS (GLARGINE) 1 /0.01ml (100units/ml) SC SCH (12:53)
--- NOTE | 2024-12-27 13:17 | DVHPNRES ---
Progress Note Date Seen: Dec 27, 2024 Resident Creating Document: LISSET CHANG RESIDENT Has the PT tested + for MRSA If YES, has PT been informed?: No Medical Necessity Reason Pt with a Central, PICC or Fol: No Subjective Review of Systems A 49y old PMHx asthma, CHF, DM, sleep apnea, DVT, HTN who came to the ED due to SOB, cough for about 3 days. Patient is non complicant with medication. Patient stated last DVT was 1y back Patient was placed in insulin drip in ED due to HSS, right now in insulin SC, also was found PNA in xray, leg US negative for DVT, echo didnt show RV strain, PE unlikely Objective vital signs Vital Sign Date Time Temp Pulse Resp B/P (MAP) Pulse Ox O2 Delivery O2 Flow Rate FiO2 12/27/24 11:44 98.4 68 17 135/78 (97) 98 98.4 12/27/24 10:00 Nasal Cannula* 3 32 Total Intake and Output 12/26/24 12/26/24 12/27/24 15:00 23:00 07:00 Intake Total 658 ml 516 ml 1442 ml Output Total 700 ml 2100 ml Balance 658 ml -184 ml -658 ml medications Current Medications Medications Dose Ordered Sig/Tricia Route Start Time Stop Time Status Last Admin Dose Admin Amlodipine Besylate 5 mg DAILY PO 12/27/24 10:00 12/27/24 09:07 5 MG Sodium Chloride 1,000 ml @ 120 mls/hr Q8H20M IV 12/26/24 11:30 12/27/24 11:55 120 MLS/HR Ondansetron HCl 4 mg Q4HP PRN IV 12/26/24 11:30 Docusate Sodium 100 mg BIDPRN PRN PO 12/26/24 11:30 Enoxaparin Sodium 40 mg DAILY SC 12/27/24 10:00 12/27/24 09:12 40 MG Morphine Sulfate 2 mg Q4HPRN PRN IV 12/26/24 11:30 12/27/24 07:49 2 MG Nitroglycerin 0.4 mg Q5MINP PRN SL 12/26/24 11:30 Albuterol 2.5 mg Q4HPRN PRN NEB 12/26/24 11:30 Ipratropium [place] 0.5 mg Q4HPRN PRN NEB 12/26/24 11:30 Metoprolol Tartrate 12.5 mg BID PO 12/26/24 22:00 12/27/24 09:07 12.5 MG Hydralazine HCl 10 mg Q6HP PRN IV 12/26/24 16:00 12/26/24 18:58 10 MG Diagnostic Test (Pha) 1 strip Q6HR 12/27/24 12:00 12/27/24 11:32 1 STRIP Insulin Human Regular Q6HR SC 12/27/24 12:00 12/27/24 11:33 12 UNITS Dextrose 50 ml UD PRN IV 12/27/24 06:30 Ceftriaxone Sodium 50 ml @ 100 mls/hr DAILY@09 IV 12/27/24 10:45 12/27/24 11:40 100 MLS/HR Azithromycin 250 ml @ 125 mls/hr DAILY IV 12/27/24 12:00 12/27/24 11:55 125 MLS/HR Insulin Glargine 20 units HS SC 12/27/24 12:00 12/27/24 12:53 20 UNITS Examination General Appearance: Alert, Oriented X3, Cooperative, Other (Weakness) HEENT: Atraumatic, PERRLA, EOMI, Mucous membr. moist/pink Respiratory: Other (Crackles heard in the lung) Cardiovascular: Regular rate, Normal S1, Normal S2, No murmurs Abdominal: Normal bowel sounds, Soft, No tenderness, No hepatospenomegaly, No masses Extremities: No clubbing, No cyanosis, No edema, Normal pulses, No tenderness/swelling Skin: No rashes, No breakdown, No significant lesion Neuro: Other (Neuro nonfocal) Psych/Mental Status: Mental status NL, Mood NL laboratory and microbiology Laboratory Tests 12/27/24 03:36 12/27/24 00:39 Test 12/27/24 00:39 Range/Units Serum Glucose 539 *H 74-106 mg/dL Microbiology Date/Time Source Procedure Growth Status 12/26/24 12:06 Blood Blood Culture - Preliminary NO GROWTH AFTER 24 HOURS OF INCUBATION. Resulted Problem List/Assessment/Plan Problem List/Assessment/Plan #Sepsis due to pneumonia gram+ gram neg #Acute respiratory failure due to PNA and CHF #Acute on Chronic diastolic heart failure #HSS resolved #Uncontrolled DM type 2 #Hyperkalemia resolved #Sleep apnea #Hyponatremia #VANIA vasomotor mediated on CKD Downgrade to telemetry Diabetes diet IV fluids 120 cc/h Breathing treatments q4H prn Ceftriaxone + Azithromycin Enoxaparin 40 mg SC Metoprolol 12.5 mg BID Moderate ISS Amlodipine PO Lantus SC 20 UI Case discussed with Dr Mai Plan discussed with: Patient, Other (rn) My Orders My Orders Orders - LISSET CHANG Procedure Category Date Status Time Transfer Orders XFER 12/27/24 Transmitted 08:31 Ceftriaxone 1gm/50ml PHA 12/27/24 In Process D5w (Rocephin) 10:45 Azithromycin 500mg/ PHA 12/27/24 In Process 250ml (Zithromax 50 12:00 Insulin Lantus PHA 12/27/24 In Process (Glargine) (Lantus) 12:00 Date of Service: Dec 27, 2024 Billing Provider: ANAND MAI MD Common Visit Codes: [id number] INP/OBS CARE(HIGH) LISSET CHANG RESIDENT Dec 27, 2024 13:17 ANAND MAI MD Dec 27, 2024 22:25
--- NOTE | 2024-12-27 17:55 | DVHPN2 ---
Progress Note - Dictate Date Seen: Dec 27, 2024 Has the PT tested + for MRSA If YES, has PT been informed?: No Medical Necessity Reason Pt with a Central, PICC or Fol: No Subjective no new symptoms vital signs Vital Sign Date Time Temp Pulse Resp B/P (MAP) Pulse Ox O2 Delivery O2 Flow Rate FiO2 12/27/24 14:04 73 16 125/75 12/27/24 13:00 95 12/27/24 12:48 Nasal Cannula* 5 40 12/27/24 12:48 98.4 98.4 Total Intake and Output 12/26/24 12/26/24 12/27/24 15:00 23:00 07:00 Intake Total 658 ml 516 ml 1442 ml Output Total 700 ml 2100 ml Balance 658 ml -184 ml -658 ml medications Current Medications Medications Dose Ordered Sig/Tricia Route Start Time Stop Time Status Last Admin Dose Admin Amlodipine Besylate 5 mg DAILY PO 12/27/24 10:00 12/27/24 09:07 5 MG Sodium Chloride 1,000 ml @ 120 mls/hr Q8H20M IV 12/26/24 11:30 12/27/24 11:55 120 MLS/HR Ondansetron HCl 4 mg Q4HP PRN IV 12/26/24 11:30 Docusate Sodium 100 mg BIDPRN PRN PO 12/26/24 11:30 Enoxaparin Sodium 40 mg DAILY SC 12/27/24 10:00 12/27/24 09:12 40 MG Morphine Sulfate 2 mg Q4HPRN PRN IV 12/26/24 11:30 12/27/24 13:34 2 MG Nitroglycerin 0.4 mg Q5MINP PRN SL 12/26/24 11:30 Albuterol 2.5 mg Q4HPRN PRN NEB 12/26/24 11:30 Ipratropium [place] 0.5 mg Q4HPRN PRN NEB 12/26/24 11:30 Metoprolol Tartrate 12.5 mg BID PO 12/26/24 22:00 12/27/24 09:07 12.5 MG Hydralazine HCl 10 mg Q6HP PRN IV 12/26/24 16:00 12/26/24 18:58 10 MG Diagnostic Test (Pha) 1 strip Q6HR 12/27/24 12:00 12/27/24 11:32 1 STRIP Insulin Human Regular Q6HR SC 12/27/24 12:00 12/27/24 11:33 12 UNITS Dextrose 50 ml UD PRN IV 12/27/24 06:30 Ceftriaxone Sodium 50 ml @ 100 mls/hr DAILY@09 IV 12/27/24 10:45 12/27/24 11:40 100 MLS/HR Azithromycin 250 ml @ 125 mls/hr DAILY IV 12/27/24 12:00 12/27/24 11:55 125 MLS/HR Insulin Glargine 20 units HS SC 12/27/24 12:00 12/27/24 12:53 20 UNITS objective Gen: NAD, AAOx3 HEENT: NC, AT Lungs: decreased breath sounds Lt lung base Cardiac: RRR, no murmur Abd: soft, no distention Ext: no edema Neuro: no focal deficits laboratory and microbiology Laboratory Tests 12/27/24 03:36 12/27/24 00:39 Test 12/27/24 00:39 Range/Units Serum Glucose 539 *H 74-106 mg/dL Assessment/Plan VANIA, secondary to urinary retention. Renal US shows over 600 cc of urine, and patient with no urge to void. likely neurogenic bladder from diabetes Hyperkalemia, resolved Nephrotic range proteinuria. 9 g/g on UPCR Hypervolemic hyponatremia, mild Lt lung pneumonia DM with hyperglycemia HTN h/o Lt 3rd toe amputation Chronic Diastolic CHF (EF: 55% on ) GERD Peripheral neuropathy Plan: Continue Amlodipine 5 mg daily Continue Metoprolol 12.5 mg PO BID Ideally patient needs to be placed on ACEIs and SGLT-2 inhibitors given nephrotic range proteinuria. this can be done as outpatient or once VANIA resolves. Decrease NS at 60 cc/h Continue IV antibiotics Urology consult f/u blood cultures daily BMP Insulin per sliding scale Strict I&Os Needs follow up in our office in 2-3 weeks after discharge. Plan discussed with: Patient YI LYONS MD Dec 27, 2024 17:55
[2024-12-27] MEDS: SODIUM CHLORIDE 0.9% 1,000 ML IV SCH (18:05)
[2024-12-27] MEDS ORDERED: INSULIN LANTUS (GLARGINE) 1 /0.01ml (100units/ml) SC SCH (22:00)
[2024-12-28] VITALS (15 sets, daily range): BP systolic 114–148; BP diastolic 68–83; PULSE 73–94; RESP 16–20; TEMP 97.7–99.1; O2SAT 93–100
[2024-12-28] MEDS: IPRATROPIUM BROM 0.5 MG/2.5ML INH SOL NEB PRN (01:58)
[2024-12-28] MEDS: ALBUTEROL SULF 2.5 MG/0.5ML(0.5%) NEB SOLN NEB PRN (01:58)
[2024-12-28 06:24] LABS: Alanine Aminotransferase 18 U/L (7-40); Albumin 3.4 g/dL (3.2-4.8); Anion Gap 6 (5-15); Carbon Dioxide 24 mmol/L (20-31); Chloride 105 mmol/L (98-107)
[2024-12-28 06:26] LABS: Alkaline Phosphatase 161 U/L (46-116); Aspartate Aminotransferase 11 U/L (13-40); Bilirubin, Total < 0.2 mg/dL (0.2-1.0); Blood Urea Nitrogen 57 mg/dL (9-23); Calcium 8.2 mg/dL (8.7-10.4); Glucose 155 mg/dL (74-106); Potassium 5.5 mmol/L (3.5-5.1); Sodium 135 mmol/L (136-145)
[2024-12-28] MEDS: DEXTROSE (50%) 50ML SYRG IV ONE (08:26)
[2024-12-28] MEDS: SODIUM BICARB 8.4% 50Meq/50ml SYR INJ IV ONE (08:34)
[2024-12-28] MEDS: InsuLIN REG 1unit/0.01ml Soln (100units/ml) IV ONE (08:34)
[2024-12-28] MEDS: SODIUM ZIRCONIUM CYCL 10 GM PAK PO ONE (08:36)
[2024-12-28] MEDS: FUROSEMIDE 20 MG/2 ML VIAL IV ONE (08:37)
[2024-12-28 08:56] LABS: Basophils # (auto) 0 10 ^3/uL (0-0.2); Basophils % (auto) 0.4 % (0.0-2.0); Eosinophils # (auto) 0.3 10 ^3/uL (0-0.8); Eosinophils % (auto) 3.2 % (0.0-7.0); Hematocrit 29.6 % (36.0-46.0); Hemoglobin 9.8 g/dL (12.2-16.2); Lymphocytes # (auto) 1.1 10 ^3/uL (0.4-5.4); Lymphocytes % (auto) 12.1 % (10.0-50.0); Mean Corpuscular Volume 84.9 fL (80.0-100.0); Monocytes # (auto) 0.3 10 ^3/uL (0-1.3); Monocytes % (auto) 3.2 % (0.0-12.0); Neutrophils # (auto) 7.7 10 ^3/uL (1.6-8.6); Neutrophils % (auto) 81.1 % (37.0-80.0); Platelet Count (auto) 218 10^3/uL (140-450); Red Blood Cells 3.49 10^6/uL (4.0-5.20); Red Cell Distribution Width 14.3 % (11.8-14.3); White Blood Cell 9.5 10^3/uL (4.4-10.8)
--- NOTE | 2024-12-28 11:33 | DVHPNRES ---
Progress Note Date Seen: Dec 28, 2024 Resident Creating Document: LISSET CHANG RESIDENT Has the PT tested + for MRSA If YES, has PT been informed?: No Medical Necessity Reason Pt with a Central, PICC or Fol: No Subjective Review of Systems A 49y old PMHx asthma, CHF, DM, sleep apnea, DVT, HTN who came to the ED due to SOB, cough for about 3 days. Patient is non complicant with medication. Patient stated last DVT was 1y back Patient was placed in insulin drip in ED due to HSS, right now in insulin SC, also was found PNA in xray, leg US negative for DVT, echo didnt show RV strain, PE unlikely 12/28/2024: hyperkalemia today 5,5, insulin iv given, bicarbonate and lokelma given, still patient is on O2 3lt, UDS positive for meth Objective vital signs Vital Sign Date Time Temp Pulse Resp B/P (MAP) Pulse Ox O2 Delivery O2 Flow Rate FiO2 12/28/24 11:31 88 138/80 12/28/24 09:00 99.1 20 93 99.1 12/28/24 08:10 Nasal Cannula* 3 32 Total Intake and Output 12/27/24 12/27/24 12/28/24 15:00 23:00 07:00 Intake Total 840 ml 480 ml 1080 ml Output Total 4 ml Balance 840 ml 480 ml 1076 ml medications Current Medications Medications Dose Ordered Sig/Tricia Route Start Time Stop Time Status Last Admin Dose Admin Amlodipine Besylate 5 mg DAILY PO 12/27/24 10:00 12/28/24 11:30 5 MG Ondansetron HCl 4 mg Q4HP PRN IV 12/26/24 11:30 Docusate Sodium 100 mg BIDPRN PRN PO 12/26/24 11:30 Enoxaparin Sodium 40 mg DAILY SC 12/27/24 10:00 12/28/24 11:31 40 MG Morphine Sulfate 2 mg Q4HPRN PRN IV 12/26/24 11:30 12/28/24 05:15 2 MG Nitroglycerin 0.4 mg Q5MINP PRN SL 12/26/24 11:30 Albuterol 2.5 mg Q4HPRN PRN NEB 12/26/24 11:30 12/28/24 06:14 2.5 MG Ipratropium [place] 0.5 mg Q4HPRN PRN NEB 12/26/24 11:30 12/28/24 06:14 0.5 MG Metoprolol Tartrate 12.5 mg BID PO 12/26/24 22:00 12/28/24 11:31 12.5 MG Hydralazine HCl 10 mg Q6HP PRN IV 12/26/24 16:00 12/26/24 18:58 10 MG Diagnostic Test (Pha) 1 strip Q6HR 12/27/24 12:00 12/28/24 11:20 1 STRIP Insulin Human Regular Q6HR SC 12/27/24 12:00 12/28/24 11:32 3 UNITS Dextrose 50 ml UD PRN IV 12/27/24 06:30 Ceftriaxone Sodium 50 ml @ 100 mls/hr DAILY@09 IV 12/27/24 10:45 12/28/24 09:01 100 MLS/HR Azithromycin 250 ml @ 125 mls/hr DAILY IV 12/27/24 12:00 12/28/24 11:29 125 MLS/HR Insulin Glargine 20 units HS SC 12/27/24 12:00 12/27/24 12:53 20 UNITS Sodium Chloride 1,000 ml @ 60 mls/hr [id number] IV 12/27/24 18:00 12/27/24 18:05 60 MLS/HR Examination General Appearance: Alert, Oriented X3, Cooperative, Other (Weakness) HEENT: Atraumatic, PERRLA, EOMI, Mucous membr. moist/pink Respiratory: bibasal crackles Cardiovascular: Regular rate, Normal S1, Normal S2, No murmurs Abdominal: Normal bowel sounds, Soft, No tenderness, No hepatospenomegaly, No masses Extremities: No clubbing, No cyanosis, No edema, Normal pulses, No tenderness/swelling Skin: No rashes, No breakdown, No significant lesion Neuro: non focal Psych/Mental Status: Mental status NL, Mood NL laboratory and microbiology Laboratory Tests 12/28/24 08:39 Test 12/28/24 11:29 Range/Units Serum Glucose Pending Microbiology Date/Time Source Procedure Growth Status 12/26/24 12:06 Blood Blood Culture - Preliminary NO GROWTH AFTER 24 HOURS OF INCUBATION. Resulted Problem List/Assessment/Plan Problem List/Assessment/Plan #Sepsis due to pneumonia gram+ gram neg #Acute respiratory failure due to PNA and CHF #Acute on Chronic diastolic heart failure #HSS resolved #Uncontrolled DM type 2 #Hyperkalemia resolved #Sleep apnea #Hyponatremia #VANIA vasomotor mediated on CKD #Hyperkalemia Diabetes diet Breathing treatments q4H prn Ceftriaxone + Azithromycin Enoxaparin 40 mg SC Metoprolol 12.5 mg BID Moderate ISS Amlodipine PO Lantus SC 10 UI BID HyperK protocol given Case discussed with Dr Singer Plan discussed with: Patient, Other (rn) My Orders My Orders Orders - LISSET CHANG RESIDENT Procedure Category Date Status Time Insulin Lantus PHA 12/27/24 In Process (Glargine) (Lantus) 12:00 Drug Screen LAB 12/27/24 Logged 13:55 Comprehensive LAB 12/28/24 In Process Metabolic Panel 10:09 C-Reactive Protein LAB 12/28/24 In Process 11:10 Date of Service: Dec 28, 2024 Billing Provider: ROCK SINGER DO Common Visit Codes: [id number] INP/OBS CARE(HIGH) LISSET CHANG RESIDENT Dec 28, 2024 11:33 ROCK SINGER DO Dec 29, 2024 21:25
[2024-12-28 11:55] LABS: Alanine Aminotransferase 15 U/L (7-40); Albumin 3.5 g/dL (3.2-4.8); Anion Gap 6 (5-15); BUN/Creatinine Ratio 30.4 (10.0-20.0); Carbon Dioxide 26 mmol/L (20-31); Chloride 104 mmol/L (98-107); Potassium 4.5 mmol/L (3.5-5.1); Total Protein 6.4 g/dL (5.7-8.2)
[2024-12-28 12:01] LABS: Alkaline Phosphatase 147 U/L (46-116); Aspartate Aminotransferase 10 U/L (13-40); Bilirubin, Total < 0.2 mg/dL (0.2-1.0); Blood Urea Nitrogen 49 mg/dL (9-23); Calcium 8.4 mg/dL (8.7-10.4); Glucose 183 mg/dL (74-106); Sodium 136 mmol/L (136-145)
--- NOTE | 2024-12-28 15:36 | DVHPN2 ---
Progress Note - Dictate Date Seen: Dec 28, 2024 Has the PT tested + for MRSA If YES, has PT been informed?: No Medical Necessity Reason Pt with a Central, PICC or Fol: No Subjective no new symptoms vital signs Vital Sign Date Time Temp Pulse Resp B/P (MAP) Pulse Ox O2 Delivery O2 Flow Rate FiO2 12/28/24 14:41 75 16 100 12/28/24 14:35 Nasal Cannula* 3 32 12/28/24 13:00 98.6 138/80 (99) 98.6 Total Intake and Output 12/27/24 12/27/24 12/28/24 15:00 23:00 07:00 Intake Total 840 ml 480 ml 1080 ml Output Total 4 ml Balance 840 ml 480 ml 1076 ml medications Current Medications Medications Dose Ordered Sig/Tricia Route Start Time Stop Time Status Last Admin Dose Admin Amlodipine Besylate 5 mg DAILY PO 12/27/24 10:00 12/28/24 11:30 5 MG Ondansetron HCl 4 mg Q4HP PRN IV 12/26/24 11:30 Docusate Sodium 100 mg BIDPRN PRN PO 12/26/24 11:30 Enoxaparin Sodium 40 mg DAILY SC 12/27/24 10:00 12/28/24 11:31 40 MG Morphine Sulfate 2 mg Q4HPRN PRN IV 12/26/24 11:30 12/28/24 12:07 2 MG Nitroglycerin 0.4 mg Q5MINP PRN SL 12/26/24 11:30 Albuterol 2.5 mg Q4HPRN PRN NEB 12/26/24 11:30 12/28/24 14:35 2.5 MG Ipratropium [place] 0.5 mg Q4HPRN PRN NEB 12/26/24 11:30 12/28/24 14:35 0.5 MG Metoprolol Tartrate 12.5 mg BID PO 12/26/24 22:00 12/28/24 11:31 12.5 MG Hydralazine HCl 10 mg Q6HP PRN IV 12/26/24 16:00 12/26/24 18:58 10 MG Diagnostic Test (Pha) 1 strip Q6HR 12/27/24 12:00 12/28/24 11:20 1 STRIP Insulin Human Regular Q6HR SC 12/27/24 12:00 4/1/25 11:32 3 UNITS Dextrose 50 ml UD PRN IV 12/27/24 06:30 Ceftriaxone Sodium 50 ml @ 100 mls/hr DAILY@09 IV 12/27/24 10:45 12/28/24 09:01 100 MLS/HR Azithromycin 250 ml @ 125 mls/hr DAILY IV 12/27/24 12:00 12/28/24 11:29 125 MLS/HR Insulin Glargine 20 units HS SC 12/27/24 12:00 12/27/24 12:53 20 UNITS Sodium Chloride 1,000 ml @ 60 mls/hr [id number] IV 12/27/24 18:00 12/28/24 12:13 60 MLS/HR objective Gen: NAD, AAOx3 HEENT: NC, AT Lungs: decreased breath sounds Lt lung base Cardiac: RRR, no murmur Abd: soft, no distention Ext: no edema Neuro: no focal deficits laboratory and microbiology Laboratory Tests 12/28/24 11:29 12/28/24 08:39 Test 12/28/24 11:29 Range/Units Serum Glucose 183 H 74-106 mg/dL Assessment/Plan VANIA, secondary to urinary retention. it resolved with dejesus placement. dejesus removed, and patient has been able to empty her bladder. Hyperkalemia, resolved Nephrotic range proteinuria. 9 g/g on UPCR Hypervolemic hyponatremia, mild Lt lung pneumonia DM with hyperglycemia HTN h/o Lt 3rd toe amputation Chronic Diastolic CHF (EF: 55% on ) GERD Peripheral neuropathy Plan: creatinine is improving. most recent is 1.61 mg/dl. Continue Amlodipine 5 mg daily Continue Metoprolol 12.5 mg PO BID Ideally patient needs to be placed on ACEIs and SGLT-2 inhibitors given nephrotic range proteinuria. this can be done as outpatient or once VANIA resolves. DC IVF Continue IV antibiotics f/u blood cultures daily BMP Insulin per sliding scale Strict I&Os Needs follow up in our office in 2-3 weeks after discharge. Plan discussed with: Patient YI LYONS MD Dec 28, 2024 15:36
[2024-12-28 16:41] LABS: Urine Bacteria None Seen /hpf (None Seen)
[2024-12-28 17:15] LABS: Urine Amorphous Crystal FEW /hpf (None Seen); Urine Blood 2+ /uL (Negative); Urine Clarity Clear (Clear); Urine Color Light-Yellow (Yellow); Urine Mucus FEW (None Seen); Urine Protein, UAD 2+ (Negative); Urine Specific Gravity 1.011 (1.001-1.035); Urine Squamous Epithelial Cell FEW /hpf (<5); Urine Urobilinogen Normal (Negative); Urine WBC 2 /HPF (0-5); Urine pH 5.5 (5.0-9.0)
[2024-12-28 17:21] LABS: Cocaine Screen, Urine Neg (NEGATIVE); Opiate Scree,Urine Neg (NEGATIVE)
[2024-12-28 17:26] LABS: Amphetamine Screen, Urine Pos (NEGATIVE); Barbiturate Scree,Urine Neg (NEGATIVE); Benzodiazephine Screen, Urine Neg (NEGATIVE); Cannabinoid Screen, Urine Neg (NEGATIVE); Phencyclidine Screen, Urine Neg (NEGATIVE)
--- NOTE | 2024-12-28 21:12 | DVHINCON2 ---
Date of service: Dec 28, 2024 Referring Physician Marquise Harman DO Reason for Consultation Acute hypoxic respiratory failure and pneumonia History of Present Illness A 49-year-old woman with past medical history of asthma, CHF, diabetes, GERD, kidney stones, sleep apnea, DVT, and hypertension who presented to ED on 12/26/24 with c/o flu-like symptoms, body aches, phlegm and sore throat x 3 days. Patient also w/ cough and shortness of breath. Positive sick contact w/ grandson. Patient is not taking any medications for quite some time. Reports she has not seen a doctor in greater than 2 years. On ED workup, sodium was 133, BUN and creatinine 1.83 and 39, white count was 11.4, H&H 10.7 and 33.3. Troponin was negative, BNP was 172.15. Patient was given azithromycin, Solu- Medrol and IV fluids in the ED; admitted with diagnoses of acute pneumonia per chest x-ray and for workup of heart failure. Pulmonary consultation is requested for evaluation and management due to the above findings. Review of Systems: 14-point review of systems negative unless otherwise noted above. Past Medical History: Asthma, CHF, diabetes, GERD, kidney stones, sleep apnea, DVT, and hypertension Past Surgical History: Gallbladder surgery, , tonsillectomy and tubal ligation Medications: Reviewed. Allergies: Levofloxacin. Family History: Diabetes mellitus Heart attack Hypertension. Social History: Nonsmoker. No alcohol or illicit drug use. Family History: Diabetes mellitus G8 FATHER FH: heart attack G8 FATHER Hypertension G8 MOTHER G8 FATHER Allergies: Coded Allergies: Levofloxacin (Verified Allergy, Mild, 12/26/24) Home Meds Active Scripts Clindamycin HCl (Clindamycin Hydrochloride) 300 Mg Cap, 300 MG PO Q8HR for 7 Days, #21 CAP Prov:ANAND LOPEZ MD 11/25/23 Amlodipine Besylate (NORVASC TABLET) 5 Mg Tb, 5 MG PO DAILY, #30 TAB 5 Refills Prov:ANAND LOPEZ MD 11/13/23 Empagliflozin (Jardiance) 10 Mg Tab, 10 MG PO DAILY for 30 Days, #30 TAB Prov:SARAY CABRERA MD 10/22/23 Insulin Glargine (Basaglar Kwikpen) 100 Unit/Ml Inj, 25 UNIT SC QAM for 30 Days, #30 INJ Prov:SARAY CABRERA MD 10/22/23 Metformin Hydrochloride (Metformin Hcl) 1,000 Mg Tab, 1 TAB PO BID for 30 Days, #60 TAB 5 Refills Prov:SARAY CABRERA MD 10/22/23 Reported Medications Insulin Lispro (Humalog Kwikpen) 100 Unit/Ml Inj, 8 UNIT SC TID Inject 8 units subcutaneously 3 times daily before meals as directed 11/03/23 Tizanidine Hydrochloride (Zanaflex) 4 Mg Cap, 2 MG PO TID PRN for CHRONIC PAIN 11/03/23 Pantoprazole Sodium Sesquihydr (Protonix) 40 Mg Tab, 1 TAB PO DAILY 11/03/23 Gabapentin (Gabapentin) 800 Mg Tab, 1 TAB PO DAILY 11/03/23 Diphenhydramine Hcl (Benadryl Allergy) 25 Mg Cap, 1 CAP PO QPM, #30 CAP 1 Refill 10/17/23 Albuterol Sulfate (Albuterol Sulfate) 2 Mg Tab, 2 MG PO Q6HP PRN for SHORTNESS OF BREATH, MG 10/25/19 Current Medications Current Medications Medications (Trade) Dose Ordered Sig/Tricia Route PRN Reason Start Time Stop Time Status Last Admin Insulin Glargine (Lantus) 20 units HS SC 12/27/24 22:00 12/27/24 12:00 DC Vital Signs Vital Signs Date Time Temp Pulse Resp B/P (MAP) Pulse Ox O2 Delivery O2 Flow Rate FiO2 12/28/24 20:00 Nasal Cannula* 3 32 12/28/24 18:37 85 18 116/73 12/28/24 18:21 94 12/28/24 17:00 98.6 98.6 Physical Exam Gen.: Patient lying in bed in no apparent distress. On supplemental oxygen. Head: Normocephalic, atraumatic. Eyes: EOMI/PERRLA. Ears: Normal hearing. Normal anatomy. Neck/trachea: Trachea midline, supple. Nose: Normal external anatomy. Mouth: Moist mucous membranes. Chest: Decreased air entry bilaterally. No wheezing or rhonchi. Cardiovascular: Positive S1, positive S2. Regular rate and rhythm. Abdomen: Positive bowel sounds in all 4 quadrants. Soft, non-tender, non- distended. : Deferred. Rectal: Deferred. Skin: Warm, dry. Intact. Extremities: 2+ radial pulses bilaterally. No lower extremity edema. Neuro: Awake, alert, oriented x3. No gross motor or sensory deficits. Cranial nerves II through XII intact. Gait not assessed. Labs/Diagnostic Data Labs Test 12/28/24 20:53 12/28/24 16:35 12/28/24 11:29 12/28/24 08:39 Range/Units POC Glucose 352 H 70-106 mg/dl Urine Color Light-yellow Yellow Urine Clarity Clear Clear Urine pH 5.5 5.0-9.0 Urine Specific [place] 1.011 1.001-1.035 Urine Protein 2+ H Negative Urine Ketones Negative Negative Urine Blood 2+ H Negative /uL Urine Nitrite Negative Negative Urine Bilirubin Negative Negative Urine Urobilinogen Normal Negative mg/dL Urine Leukocyte Esterase Negative Negative /uL Urine RBC 23 0 - 4 /hpf Urine Microscopic WBC 2 0-5 /HPF Urine Squamous Epithelial Cells Few <5 /hpf Urine Amorphous Crystals Few None Seen /hpf Urine Bacteria None seen None Seen /hpf Urine Mucus Few None Seen Urine Glucose 1+ H Normal mg/dL Urine Opiates Screen Neg NEGATIVE Urine Fentanyl Screen Neg NEGATIVE Urine Barbiturates Screen Neg NEGATIVE Urine Phencyclidine Screen Neg NEGATIVE Urine Amphetamines Screen Pos NEGATIVE Urine Benzodiazepines Screen Neg NEGATIVE Urine Cocaine Screen Neg NEGATIVE Urine Cannabinoids Screen Neg NEGATIVE Sodium Level 136 136-145 mmol/L Potassium Level 4.5 3.5-5.1 mmol/L Chloride Level 104 98-107 mmol/L Carbon Dioxide Level 26 20-31 mmol/L Anion Gap 6 5-15 Blood Urea Nitrogen 49 H 9-23 mg/dL Creatinine 1.61 H 0.550-1.02 mg/dL Glomerular Filtration Rate Calc 39 >90 mL/min BUN/Creatinine Ratio 30.4 H 10.0-20.0 Serum Glucose 183 H 74-106 mg/dL Calcium Level 8.4 L 8.7-10.4 mg/dL Total Bilirubin < 0.2 L 0.2-1.0 mg/dL Aspartate Amino Transferase (AST) 10 L 13-40 U/L Alanine Aminotransferase (ALT) 15 7-40 U/L Alkaline Phosphatase 147 H 46-116 U/L C-Reactive Protein High Sensitivity 5.84 H <1.0 mg/dL Total Protein 6.4 5.7-8.2 g/dL Albumin 3.5 3.2-4.8 g/dL White Blood Count 9.5 # 4.4-10.8 10^3/uL Red Blood Count 3.49 L 4.0-5.20 10^6/uL Hemoglobin 9.8 L 12.2-16.2 g/dL Hematocrit 29.6 L 36.0-46.0 % Mean Corpuscular Volume 84.9 80.0-100.0 fL Mean Corpuscular Hemoglobin 28.0 28.0-32.0 pg Mean Corpuscular Hemoglobin Concent 33.0 32.0-36.0 g/dL Red Cell Distribution Width 14.3 11.8-14.3 % Platelet Count 218 140-450 10^3/uL Mean Platelet Volume 6.8 L 6.9-10.8 fL Neutrophils (%) (Auto) 81.1 H 37.0-80.0 % Lymphocytes (%) (Auto) 12.1 10.0-50.0 % Monocytes (%) (Auto) 3.2 0.0-12.0 % Eosinophils (%) (Auto) 3.2 0.0-7.0 % Basophils (%) (Auto) 0.4 0.0-2.0 % Neutrophils # (Auto) 7.7 1.6-8.6 10 ^3/uL Lymphocytes # (Auto) 1.1 0.4-5.4 10 ^3/uL Monocytes # (Auto) 0.3 0-1.3 10 ^3/uL Eosinophils # (Auto) 0.3 0-0.8 10 ^3/uL Basophils # (Auto) 0 0-0.2 10 ^3/uL Nucleated Red Blood Cells 0.0 % Test 12/27/24 03:36 12/26/24 18:55 12/26/24 14:35 12/26/24 11:54 Range/Units B-Type Natriuretic Peptide 318.56 0-100 pg/mL Blood Gas Specimen Type Arterial Blood Gas Sample Site Right radial Blood Gas Patient Temperature 37.0 Arterial Blood Date Drawn [id number] Arterial Blood pH 7.319 L 7.350-7.450 Arterial Blood Partial Pressure CO2 42.7 32.0-45.0 mmHg Arterial Blood Partial Pressure O2 54.4 *L 83.0-108.0 mmHg Arterial Blood HCO3 21.5 21.0-28.0 mmol/L Arterial Blood Oxygen Saturation 87.3 L 94.0-98.0 % Arterial Blood Base Excess -4.4 L -2.0-3.0 mmol/L Arterial Blood Oxyhemoglobin 86.2 L 94.0-98.0 % Arterial Blood Carboxyhemoglobin 0.6 0.5-1.5 % Arterial Blood Methemoglobin 0.7 0.0-1.5 % Ilya Test Modified Blood Gas Total Hemoglobin 11.60 L 12.0-16.0 g/dL Blood Gas Modality Room air FiO2 % 21.0 Blood Gas Critical Value Read Back Yes Blood Gas Notified Whom gavi Bragg, walter Blood Gas Notified Time [id number] Blood Gas Notified By inderjit Sahni, program or project administrator Influenza Type A Antigen Negative Negative Influenza Type B Antigen Negative Negative Lactic Acid Level 1.4 0.4-2.0 mmol/L Test 12/26/24 10:55 12/26/24 09:06 12/26/24 07:35 Range/Units SARS-CoV-2 Antigen (Rapid) Negative NEGATIVE Troponin I High Sensitivity 5 </=34 ng/L Beta-Hydroxybutyric Acid 0.067 < 0.4 mmol/L Urine Creatinine 14.52 L 30.0-125.0 mg/dL Urine Protein/Creatinine Ratio 9.90 Urine Total Protein 143.7 H 1-14 mg/dL Microbiology Date/Time Source Procedure Growth Status 12/26/24 12:06 Blood Blood Culture - Preliminary NO GROWTH AFTER 48 HOURS OF INCUBATION. Resulted Assessment Impression: Acute hypoxic respiratory failure Dependence on supplemental oxygen Sepsis due to pneumonia Pneumonia, gram positive/gram negative Acute on chronic diastolic CHF. Obstructive sleep apnea. Methamphetamine use. Plan: Supplemental oxygen 3 LPM NC Titrate to keep O2 sats above 92%. Taper O2 as tolerated. ABG notable for hypoxemia, PaO2 of 54.4 mmHg Continue bronchodilators. Continue antibiotics WBC within normal limits Pain control Avoid oversedation Monitor renal function. Monitor electrolytes. Supplement as necessary. Monitor ins and outs. Counseled against meth use. DVT prophylaxis. Prognosis: Poor given patient's multiple co-morbidities. Rest of plan per hospitalist and other consultants. Thank you, Dr. Harman, for allowing me to participate in this patient's care. Further recommendations will depend on the patient's clinical course. Please do not hesitate to contact me if you have any questions or concerns. This medical document was created using an electronic medical record system with [employer] computerized dictation system. Although these documentations are being carefully reviewed, there may still be some phonetic and typographical changes. The errors are purely typographical, due to imperfection on the software program , and do not reflect any compromise in the patient's medical care. Plan discussed with: Patient, Other (RN/Dr. Harman) SHAD YU MD Dec 28, 2024 21:12
[2024-12-29] VITALS (7 sets, daily range): BP systolic 109–145; BP diastolic 68–94; PULSE 66–76; RESP 16–20; TEMP 97.4–97.5; O2SAT 93–98
[2024-12-29] MEDS: INSULIN LANTUS (GLARGINE) 1 /0.01ml (100units/ml) SC SCH (01:10)
--- NOTE | 2024-12-29 07:21 | DVHINCON2 ---
Date of service: Dec 29, 2024 Referring Physician Hospitalist Reason for Consultation neurogenic bladder History of Present Illness History Source: Patient, RN Notes, MD Notes Exam Limitations: No limitations HPI 49 Y/O F with history of DM, HTN, Lt third toe amputation, diastolic CHF, GERD, and peripheral neuropathy presented with chief complaint of generalized weakn ess, and flu like symptoms. In ER patient is hypoxic , and was therefore placed on supplemental oxygen. CXR shows Lt lung infiltrate. Labs significant for Na: 133, K: 5.6 mmol/l, Cr: 1.83 mg/dl. Baseline Cr: 1.2 - 1.3 mg/dl. Glu: 403, bicarb: 23, A, WBC: 11.4, Hb: 10.7 g/dl. She is admitted for pneumonia and was started on IV fluids and IV antibiotics. Found to be in retention. King placed with 700 mls of output. Home Meds Active Scripts Clindamycin HCl (Clindamycin Hydrochloride) 300 Mg Cap, 300 MG PO Q8HR for 7 Days, #21 CAP Prov:ANAND LOPEZ MD 11/25/23 Amlodipine Besylate (NORVASC TABLET) 5 Mg Tb, 5 MG PO DAILY, #30 TAB 5 Refills Prov:ANAND LOPEZ MD 11/13/23 Empagliflozin (Jardiance) 10 Mg Tab, 10 MG PO DAILY for 30 Days, #30 TAB Prov:SARAY CABRERA MD 10/22/23 Insulin Glargine (Basaglar Kwikpen) 100 Unit/Ml Inj, 25 UNIT SC QAM for 30 Days, #30 INJ Prov:SARAY CABRERA MD 10/22/23 Metformin Hydrochloride (Metformin Hcl) 1,000 Mg Tab, 1 TAB PO BID for 30 Days, #60 TAB 5 Refills Prov:SARAY CABRERA MD 10/22/23 Reported Medications Insulin Lispro (Humalog Kwikpen) 100 Unit/Ml Inj, 8 UNIT SC TID Inject 8 units subcutaneously 3 times daily before meals as directed 11/03/23 Tizanidine Hydrochloride (Zanaflex) 4 Mg Cap, 2 MG PO TID PRN for CHRONIC PAIN 11/03/23 Pantoprazole Sodium Sesquihydr (Protonix) 40 Mg Tab, 1 TAB PO DAILY 11/03/23 Gabapentin (Gabapentin) 800 Mg Tab, 1 TAB PO DAILY 11/03/23 Diphenhydramine Hcl (Benadryl Allergy) 25 Mg Cap, 1 CAP PO QPM, #30 CAP 1 Refill 10/17/23 Albuterol Sulfate (Albuterol Sulfate) 2 Mg Tab, 2 MG PO Q6HP PRN for SHORTNESS OF BREATH, MG 10/25/19 Past Medical History Endocrine: IDDM Patient Family History: Diabetes mellitus G8 FATHER FH: heart attack G8 FATHER Hypertension G8 MOTHER G8 FATHER Review of Systems Constitutional: Malaise Pulmonary/Respiratory: Cough Genitourinary: Retention H&P Exam Vital Signs Vital Signs Date Time Temp Pulse Resp B/P (MAP) Pulse Ox O2 Delivery O2 Flow Rate FiO2 12/29/24 05:00 97.5 67 18 109/68 (82) 93 97.5 12/28/24 20:00 Nasal Cannula* 3 32 General Appeara: Well developed, Well nourished, Normal Appearance, Obese Neuro/Mental St: Alert, Oriented Appearance: Appropriate appearance, Appropriate insight Eye contact/ Speech: Cooperative, Good eye contact, Normal speech Skin Exam: Normal inspection, Normal color, Warm/dry Labs/Xrays [place] [address] Ph: [phone] DIAGNOSTIC IMAGING Diagnostic Imaging Report : [id number] Signed PATIENT: BRITTANY RITCHIE ACCT: [id number] UNIT: [id number] : 1975 LOC: OVERFLOW ROOM / BED: [address] [place] [address] AGE / SEX: 49 / F ADM STATUS: ADM IN SERVICE 1249 ORDERING PHYSICIAN: YI LYONS MD PROCEDURE(s): KIDUS - KIDNEY REASON: renal dysfunction ORDER NUMBER(s): [id number], ACCESSION NUMBER(s): [id number] KIDNEY INDICATION: renal dysfunction TECHNIQUE: Multiple real-time sonographic images of the kidneys and bladder were obtained. COMPARISON: Renal dysfunction e FINDINGS: The right kidney measures 11.1 cm in length, which is normal in size. There is normal echogenicity of the right kidney. No hydronephrosis. The left kidney measures 10.9 cm in length, which is normal in size. There is normal echogenicity of the left kidney. No hydronephrosis. There is a 2.1 x 1.9 x 1 cm anechoic cortical lesion left kidney consistent with a cyst. No large intraluminal masses are seen in the bladder. Prior to voiding the bladder volume measures volume 656 cc. Bladder wall measures 0.7 mm Patient not void. IMPRESSION: 1. Right kidney measures 11.1 cm; left kidney measures 10.9 cm. 2. No hydronephrosis bilaterally 3. 2 cm cortical cysts left kidney 4. Prevoid bladder volume 656 mL. Patient had no urge void 5. Bladder wall 2.7 mm HS:Y ATED BY: ALEJANDRA AMBROCIO Jr., DO DICTATED DATE/TIME: 12/26/241347 SIGNED BY: ALEJANDRA AMBROCIO Jr., SIGNED DATE/TIME: 12/26/24 134 CC: Labs Test 12/29/24 05:45 12/29/24 05:39 12/28/24 16:35 12/28/24 11:29 Range/Units POC Glucose 219 H 70-106 mg/dl Urine Color Light-yellow Yellow Urine Clarity Clear Clear Urine pH 5.5 5.0-9.0 Urine Specific [place] 1.011 1.001-1.035 Urine Protein 2+ H Negative Urine Ketones Negative Negative Urine Blood 2+ H Negative /uL Urine Nitrite Negative Negative Urine Bilirubin Negative Negative Urine Urobilinogen Normal Negative mg/dL Urine Leukocyte Esterase Negative Negative /uL Urine RBC 23 0 - 4 /hpf Urine Microscopic WBC 2 0-5 /HPF Urine Squamous Epithelial Cells Few <5 /hpf Urine Amorphous Crystals Few None Seen /hpf Urine Bacteria None seen None Seen /hpf Urine Mucus Few None Seen Urine Glucose 1+ H Normal mg/dL Urine Opiates Screen Neg NEGATIVE Urine Fentanyl Screen Neg NEGATIVE Urine Barbiturates Screen Neg NEGATIVE Urine Phencyclidine Screen Neg NEGATIVE Urine Amphetamines Screen Pos NEGATIVE Urine Benzodiazepines Screen Neg NEGATIVE Urine Cocaine Screen Neg NEGATIVE Urine Cannabinoids Screen Neg NEGATIVE C-Reactive Protein High Sensitivity 5.84 H <1.0 mg/dL Test 12/28/24 08:39 12/27/24 03:36 12/26/24 18:55 12/26/24 14:35 Range/Units Eosinophils (%) (Auto) 3.2 0.0-7.0 % Eosinophils # (Auto) 0.3 0-0.8 10 ^3/uL Basophils # (Auto) 0 0-0.2 10 ^3/uL Nucleated Red Blood Cells 0.0 % B-Type Natriuretic Peptide 318.56 0-100 pg/mL Blood Gas Specimen Type Arterial Blood Gas Sample Site Right radial Blood Gas Patient Temperature 37.0 Arterial Blood Date Drawn [id number] Arterial Blood pH 7.319 L 7.350-7.450 Arterial Blood Partial Pressure CO2 42.7 32.0-45.0 mmHg Arterial Blood Partial Pressure O2 54.4 *L 83.0-108.0 mmHg Arterial Blood HCO3 21.5 21.0-28.0 mmol/L Arterial Blood Oxygen Saturation 87.3 L 94.0-98.0 % Arterial Blood Base Excess -4.4 L -2.0-3.0 mmol/L Arterial Blood Oxyhemoglobin 86.2 L 94.0-98.0 % Arterial Blood Carboxyhemoglobin 0.6 0.5-1.5 % Arterial Blood Methemoglobin 0.7 0.0-1.5 % Ilya Test Modified Blood Gas Total Hemoglobin 11.60 L 12.0-16.0 g/dL Blood Gas Modality Room air FiO2 % 21.0 Blood Gas Critical Value Read Back Yes Blood Gas Notified Whom gavi Bragg, walter Blood Gas Notified Time [id number] Blood Gas Notified By inderjit Sahni, jocelyn Influenza Type A Antigen Negative Negative Influenza Type B Antigen Negative Negative Test 12/26/24 11:54 12/26/24 10:55 12/26/24 09:06 12/26/24 07:35 Range/Units Lactic Acid Level 1.4 0.4-2.0 mmol/L SARS-CoV-2 Antigen (Rapid) Negative NEGATIVE Troponin I High Sensitivity 5 </=34 ng/L Beta-Hydroxybutyric Acid 0.067 < 0.4 mmol/L Urine Creatinine 14.52 L 30.0-125.0 mg/dL Urine Protein/Creatinine Ratio 9.90 Urine Total Protein 143.7 H 1-14 mg/dL Microbiology Date/Time Source Procedure Growth Status 12/26/24 12:06 Blood Blood Culture - Preliminary NO GROWTH AFTER 48 HOURS OF INCUBATION. Resulted Assessment/Plan Problem List: (1) Obesity (BMI 35.0-39.9 without comorbidity) (2) Pneumonia, unspecified organism (3) Urinary retention (4) CKD (chronic kidney disease) Plan outpt cystoscopy and urodynamics to be arranged signing off Plan discussed with: Patient, Other SHANTEL MARTINEZ OFFICE DIRECTOR Dec 29, 2024 07:21
[2024-12-29 07:33] LABS: Basophils # (auto) 0 10 ^3/uL (0-0.2); Basophils % (auto) 0.5 % (0.0-2.0); Eosinophils # (auto) 0.4 10 ^3/uL (0-0.8); Eosinophils % (auto) 7.2 % (0.0-7.0); Hemoglobin 10.2 g/dL (12.2-16.2); Lymphocytes # (auto) 1.1 10 ^3/uL (0.4-5.4); Lymphocytes % (auto) 19.1 % (10.0-50.0); Mean Corpuscular Hemoglobin 27.8 pg (28.0-32.0); Mean Corpuscular Hgb Conc. 32.8 g/dL (32.0-36.0); Mean Corpuscular Volume 84.5 fL (80.0-100.0); Monocytes # (auto) 0.6 10 ^3/uL (0-1.3); Monocytes % (auto) 10.8 % (0.0-12.0); Neutrophils # (auto) 3.6 10 ^3/uL (1.6-8.6); Neutrophils % (auto) 62.4 % (37.0-80.0); Nucleated Red Blood Cells % 0.3 %; Platelet Count (auto) 231 10^3/uL (140-450); Red Blood Cells 3.67 10^6/uL (4.0-5.20); Red Cell Distribution Width 14.1 % (11.8-14.3); White Blood Cell 5.7 10^3/uL (4.4-10.8)
[2024-12-29 07:51] LABS: Alanine Aminotransferase 16 U/L (7-40); Albumin 3.5 g/dL (3.2-4.8); Anion Gap 5 (5-15); BUN/Creatinine Ratio 34.4 (10.0-20.0); Carbon Dioxide 27 mmol/L (20-31); Chloride 105 mmol/L (98-107); Sodium 137 mmol/L (136-145); Total Protein 6.4 g/dL (5.7-8.2)
[2024-12-29 07:53] LABS: Alkaline Phosphatase 160 U/L (46-116); Aspartate Aminotransferase 11 U/L (13-40); Blood Urea Nitrogen 52 mg/dL (9-23); Calcium 8.5 mg/dL (8.7-10.4); Glucose 200 mg/dL (74-106)
[2024-12-29 07:54] LABS: Bilirubin, Total < 0.2 mg/dL (0.2-1.0)
[2024-12-29 11:26] LABS: Base Excess 0.7 mmol/L (-2.0-3.0)
--- NOTE | 2024-12-29 17:05 | DVHDSRES ---
Discharge Summary Date of Admission Resident Creating Document: LISSET CHANG RESIDENT Dec 26, 2024 at 11:18 Date of Discharge: Dec 29, 2024 Admitting Diagnosis Acute respiratory failure due to PNA and CHF Labs/Diagnostic Data: Laboratory Results Test 12/29/24 11:09 12/29/24 10:34 12/29/24 05:39 12/28/24 16:35 Blood Gas Specimen Type Arterial Blood Gas Sample Site Left radial Blood Gas Patient Temperature 37.0 Arterial Blood Date Drawn [id number] Arterial Blood pH 7.379 (7.350-7.450) Arterial Blood Partial Pressure CO2 45.2 mmHg (32.0-45.0) Arterial Blood Partial Pressure O2 60.3 mmHg (83.0-108.0) Arterial Blood HCO3 26.1 mmol/L (21.0-28.0) Arterial Blood Oxygen Saturation 90.4 % (94.0-98.0) Arterial Blood Base Excess 0.7 mmol/L (-2.0-3.0) Arterial Blood Oxyhemoglobin 89.1 % (94.0-98.0) Arterial Blood Carboxyhemoglobin 1.0 % (0.5-1.5) Arterial Blood Methemoglobin 0.4 % (0.0-1.5) Ilya Test Yes Blood Gas Total Hemoglobin 10.40 g/dL (12.0-16.0) Blood Gas Liter Flow 0.00 Blood Gas Modality Room air FiO2 % 21.0 POC Glucose 224 mg/dl (70-106) White Blood Count 5.7 10^3/uL (4.4-10.8) Red Blood Count 3.67 10^6/uL (4.0-5.20) Hemoglobin 10.2 g/dL (12.2-16.2) Hematocrit 31.0 % (36.0-46.0) Mean Corpuscular Volume 84.5 fL (80.0-100.0) Mean Corpuscular Hemoglobin 27.8 pg (28.0-32.0) Mean Corpuscular Hemoglobin Concent 32.8 g/dL (32.0-36.0) Red Cell Distribution Width 14.1 % (11.8-14.3) Platelet Count 231 10^3/uL (140-450) Mean Platelet Volume 7.0 fL (6.9-10.8) Neutrophils (%) (Auto) 62.4 % (37.0-80.0) Lymphocytes (%) (Auto) 19.1 % (10.0-50.0) Monocytes (%) (Auto) 10.8 % (0.0-12.0) Eosinophils (%) (Auto) 7.2 % (0.0-7.0) Basophils (%) (Auto) 0.5 % (0.0-2.0) Neutrophils # (Auto) 3.6 10 ^3/uL (1.6-8.6) Lymphocytes # (Auto) 1.1 10 ^3/uL (0.4-5.4) Monocytes # (Auto) 0.6 10 ^3/uL (0-1.3) Eosinophils # (Auto) 0.4 10 ^3/uL (0-0.8) Basophils # (Auto) 0 10 ^3/uL (0-0.2) Nucleated Red Blood Cells 0.3 % Sodium Level 137 mmol/L (136-145) Potassium Level 5.0 mmol/L (3.5-5.1) Chloride Level 105 mmol/L (98-107) Carbon Dioxide Level 27 mmol/L (20-31) Anion Gap 5 (5-15) Blood Urea Nitrogen 52 mg/dL (9-23) Creatinine 1.51 mg/dL (0.550-1.02) Glomerular Filtration Rate Calc 43 mL/min (>90) BUN/Creatinine Ratio 34.4 (10.0-20.0) Serum Glucose 200 mg/dL (74-106) Calcium Level 8.5 mg/dL (8.7-10.4) Total Bilirubin < 0.2 mg/dL (0.2-1.0) Aspartate Amino Transferase (AST) 11 U/L (13-40) Alanine Aminotransferase (ALT) 16 U/L (7-40) Alkaline Phosphatase 160 U/L (46-116) Total Protein 6.4 g/dL (5.7-8.2) Albumin 3.5 g/dL (3.2-4.8) Urine Color Light-yellow (Yellow) Urine Clarity Clear (Clear) Urine pH 5.5 (5.0-9.0) Urine Specific [place] 1.011 (1.001-1.035) Urine Protein 2+ (Negative) Urine Ketones Negative (Negative) Urine Blood 2+ /uL (Negative) Urine Nitrite Negative (Negative) Urine Bilirubin Negative (Negative) Urine Urobilinogen Normal mg/dL (Negative) Urine Leukocyte Esterase Negative /uL (Negative) Urine RBC 23 /hpf (0 - 4) Urine Microscopic WBC 2 /HPF (0-5) Urine Squamous Epithelial Cells Few /hpf (<5) Urine Amorphous Crystals Few /hpf (None Seen) Urine Bacteria None seen /hpf (None Seen) Urine Mucus Few (None Seen) Urine Glucose 1+ mg/dL (Normal) Urine Opiates Screen Neg (NEGATIVE) Urine Fentanyl Screen Neg (NEGATIVE) Urine Barbiturates Screen Neg (NEGATIVE) Urine Phencyclidine Screen Neg (NEGATIVE) Urine Amphetamines Screen Pos (NEGATIVE) Urine Benzodiazepines Screen Neg (NEGATIVE) Urine Cocaine Screen Neg (NEGATIVE) Urine Cannabinoids Screen Neg (NEGATIVE) Test 12/28/24 11:29 12/27/24 03:36 12/26/24 18:55 12/26/24 14:35 C-Reactive Protein High Sensitivity 5.84 mg/dL (<1.0) B-Type Natriuretic Peptide 318.56 pg/mL (0-100) Blood Gas Critical Value Read Back Yes Blood Gas Notified Whom gavi Bragg dnp Blood Gas Notified Time [id number] Blood Gas Notified By inderjit Sahni, jocelyn Influenza Type A Antigen Negative (Negative) Influenza Type B Antigen Negative (Negative) Test 12/26/24 11:54 12/26/24 10:55 12/26/24 09:06 12/26/24 07:35 Lactic Acid Level 1.4 mmol/L (0.4-2.0) SARS-CoV-2 Antigen (Rapid) Negative (NEGATIVE) Troponin I High Sensitivity 5 ng/L (</=34) Beta-Hydroxybutyric Acid 0.067 mmol/L (< 0.4) Urine Creatinine 14.52 mg/dL (30.0-125.0) Urine Protein/Creatinine Ratio 9.90 Urine Total Protein 143.7 mg/dL (1-14) Other Laboratory Tests 12/29/24 05:39 Brief Hx & Hospital Course: A 49-year-old female with PMHx of asthma, CHF, DM2, HTN, sleep apnea, DVT, GERD, and CKD presented with shortness of breath, productive cough, flu-like symptoms, phlegm, and sore throat for 3 days. Hospital Course: Patient was admitted with acute hypoxic respiratory failure due to left lower lobe pneumonia and CHF exacerbation. She was found to have hyperglycemia (glucose 539), hyperkalemia (K 5.5), and hyponatremia (Na 133) on admission labs. BNP was elevated at 172.15. She was treated with IV antibiotics (azithromycin and ceftriaxone), Solu-Medrol, insulin drip for HSS, and IV fluids. Chest x-ray showed pneumonia. Workup for PE was negative (leg US negative for DVT, echo showed no RV strain). Echo noted chronic diastolic CHF (EF 55%). She was also UDS positive for meth. Renal US showed >600 cc of retained urine, likely secondary to neurogenic bladder from longstanding diabetes. VANIA attributed to urinary retention. She was placed on hyperkalemia protocol (insulin IV, bicarbonate, lokelma). Patient remained on 3L O2 via nasal cannula. Patient was clinically improving but left the hospital against medical advice on 12/28/2024. Still requiring 3L O2 via nasal cannula at time of discharge. All the risk of leaving were explained but patient refuse further care General Appearance: Alert, Oriented X3, Cooperative, Other (Weakness) HEENT: Atraumatic, PERRLA, EOMI, Mucous membr. moist/pink Respiratory: bibasal crackles Cardiovascular: Regular rate, Normal S1, Normal S2, No murmurs Abdominal: Normal bowel sounds, Soft, No tenderness, No hepatospenomegaly, No masses Extremities: No clubbing, No cyanosis, No edema, Normal pulses, No tenderness/swelling Skin: No rashes, No breakdown, No significant lesion Neuro: non focal Psych/Mental Status: Mental status NL, Mood NL Case discussed with Dr Harman Consults/Reason for consult pulmonology due to pneumonia urology due to neurogenic bladder nephrology due to VANIA Operations or Procedures EXAM: Two-dimensional and M-mode echocardiogram with Doppler and color Doppler. Blood Pressure: 160/76 mmHg INDICATION Eval for cardiac function and ef RISK FACTORS Obesity: Height: 5'6", Weight: 282 DIMENSIONS LVDd 5.1 (3.8-5.7cm) LA (2D) 4.2 (1.9-4.0cm) Aortic Root 3.5 (2.0- 3.7cm) LVDs 3.4 (2.5-4.0cm) LA (MM) (1.9-4.0cm) Aortic Cusp Exc 1.7 (1.5- 2.0cm) EF (%) 60.0 (55-70%) Rt. Atrium 4.2 (1.9-4.0cm) Asc. Aorta cm IVSd 1.1 (0.7-1.1cm) RV (D) 4.0 (1.8-2.4cm) PWd 1.1 (0.7-1.1cm) Mitral Valve Mitral Mitral Stenosis E wave 1.23m/s MV Mean GR. mmHg A wave 1.12m/s MV Peak GR. mmHg E/A ratio 1.1 2D MVA cm2 DECEL Time 123ms PRESS 1/2 Time ms Aortic Valve Aortic Valve Aortic Stenosis V1 1.26m/s AO Mean GR. 8mmHg V2 1.84m/s AO Peak GR. 14mmHg LVOT Diameter 2.2 (1.8-2.4cm) Doppler KHANG 2.60cm2 Pulmonic Valve V2 1.26m/s Conclusion NORMAL LV EF AND IS 65% NORMAL VALVES NO EFFUSION NORMAL RV FUNCTION Condition at Discharge: Poor Final Diagnosis/Problems List #Sepsis due to pneumonia gram+ gram neg #Acute respiratory failure due to PNA and CHF #Acute on Chronic diastolic heart failure #HSS resolved #Uncontrolled DM type 2 #Hyperkalemia resolved #Sleep apnea #Hyponatremia #VANIA vasomotor mediated on CKD #Hyperkalemia #Neurogenic bladder Discharge Disposition: AMA Discharge Statement: "Patient was advised to return to the ER or call 911 if any headaches, dizziness, shortness of breath, chest pain, abdominal pain, bleeding, fevers, or worsening of medical condition. Patient was counseled about treatment plan, medications, possible side effects, patientverbalized understanding. All questions were answered to the best of my ability. This discharge took greater then 30 minutes in planning, reviewing documentation, counseling the patient, and discussing with other team members." ASSESSMENT ASSESSMENT Assessment LISSET CHANG RESIDENT Dec 29, 2024 17:05
[2024-12-29] MEDS ORDERED: INSULIN LANTUS (GLARGINE) 1 /0.01ml (100units/ml) SC SCH (22:00)
--- NOTE | 2024-12-29 22:23 | DVHPN2 ---
Progress Note - Dictate Date Seen: Dec 29, 2024 Has the PT tested + for MRSA If YES, has PT been informed?: No Medical Necessity Reason Pt with a Central, PICC or Fol: No Subjective Patient seen and examined at bedside. Breathing comfortably on room air. Overnight events reviewed. vital signs Vital Sign Date Time Temp Pulse Resp B/P (MAP) Pulse Ox O2 Delivery O2 Flow Rate FiO2 12/29/24 11:30 68 16 118/73 97 2.0 28 12/29/24 10:00 Nasal Cannula* 12/29/24 09:00 97.4 97.4 Total Intake and Output 12/28/24 12/28/24 12/29/24 15:00 23:00 07:00 Intake Total 300 ml 1060 ml 375 ml Output Total 1150 ml 500 ml Balance 300 ml -90 ml -125 ml objective Gen.: Patient lying in bed in no apparent distress. Breathing on room air. Head: Normocephalic, atraumatic. Eyes: EOMI/PERRLA. Ears: Normal hearing. Normal anatomy. Neck/trachea: Trachea midline, supple. Nose: Normal external anatomy. Mouth: Moist mucous membranes. Chest: Decreased air entry bilaterally. No wheezing or rhonchi. Cardiovascular: Positive S1, positive S2. Regular rate and rhythm. Abdomen: Positive bowel sounds in all 4 quadrants. Soft, non-tender, non- distended. : Deferred. Rectal: Deferred. Skin: Warm, dry. Intact. Extremities: 2+ radial pulses bilaterally. No lower extremity edema. Neuro: Awake, alert, oriented x3. No gross motor or sensory deficits. Cranial nerves II through XII intact. Gait not assessed. laboratory and microbiology Laboratory Tests 12/29/24 05:39 Test 12/29/24 05:39 Range/Units Serum Glucose 200 H 74-106 mg/dL Assessment/Plan Impression: Acute hypoxic respiratory failure Sepsis due to pneumonia Pneumonia, gram positive/gram negative Acute on chronic diastolic CHF. Obstructive sleep apnea. Methamphetamine use. Events: Currently on room air Supplemental oxygen PRN Improved O2 requirements Continue bronchodilators Continue antibiotics Incentive spirometry Accu-Cheks, ISS. Diurese as tolerated w/ Lasix Monitor renal function. Monitor electrolytes. Supplement as necessary. Monitor ins and outs. Labs and imaging reviewed. Addendum: Patient left against medical advice. She is aware of risks and benefits of doing so. Plan: Supplemental oxygen PRN Titrate to keep O2 sats above 92%. ABG notable for hypoxemia, PaO2 of 54.4 mmHg Continue bronchodilators. Continue antibiotics WBC within normal limits Pain control Avoid oversedation Monitor renal function. Monitor electrolytes. Supplement as necessary. Monitor ins and outs. Counseled against meth use. DVT prophylaxis. Prognosis: Poor given patient's multiple co-morbidities. Rest of plan per hospitalist and other consultants. Thank you, Dr. Harman, for allowing me to participate in this patient's care. Further recommendations will depend on the patient's clinical course. Please do not hesitate to contact me if you have any questions or concerns. This medical document was created using an electronic medical record system with [employer] dictation system. Although these documentations are being carefully reviewed, there may still be some phonetic and typographical changes. The errors are purely typographical, due to imperfection on the software program, and do not reflect any compromise in the patient's medical care. Plan discussed with: Patient, Other (TORI Sage) SHAD YU MD Dec 29, 2024 22:23
== END 2024-12-29 11:40 | disposition left against medical advice (07) | DRG 720 ==
LOC: ER 07:32 → OVERFLOW 11:18 → TELE-EAST 17:28 → CATH ICU 12-27 00:16 → TELE-WESTW 12-27 15:47
PROVIDERS: ADMIT Internal Medicine; ATTEND Internal Medicine
PROC: 5A09357 Assistance with Respiratory Ventilation, Less than 24 Consecutive Hours, Continuous Positive Airway Pressure (ICD-10-PCS; principal; 2024-12-26)
DX: A41.50 Gram-negative sepsis, unspecified (principal); J96.01 Acute respiratory failure with hypoxia; N17.0 Acute kidney failure with tubular necrosis; I50.43 Acute on chronic combined systolic (congestive) and diastolic (congestive) heart failure; J15.69 Pneumonia due to other Gram-negative bacteria; J15.9 Unspecified bacterial pneumonia; E87.1 Hypo-osmolality and hyponatremia; I13.0 Hypertensive heart and chronic kidney disease with heart failure and stage 1 through stage 4 chronic kidney disease, or unspecified chronic kidney disease; Z20.822 Contact with and (suspected) exposure to COVID-19; E11.42 Type 2 diabetes mellitus with diabetic polyneuropathy; Z99.81 Dependence on supplemental oxygen; K21.9 Gastro-esophageal reflux disease without esophagitis; G47.33 Obstructive sleep apnea (adult) (pediatric); E11.65 Type 2 diabetes mellitus with hyperglycemia; E87.5 Hyperkalemia; J45.909 Unspecified asthma, uncomplicated; F17.210 Nicotine dependence, cigarettes, uncomplicated; Z53.29 Procedure and treatment not carried out because of patient's decision for other reasons; N18.9 Chronic kidney disease, unspecified; F15.90 Other stimulant use, unspecified, uncomplicated; N31.9 Neuromuscular dysfunction of bladder, unspecified; E11.49 Type 2 diabetes mellitus with other diabetic neurological complication; E11.22 Type 2 diabetes mellitus with diabetic chronic kidney disease; E66.9 Obesity, unspecified; Z91.148 Patient's other noncompliance with medication regimen for other reason; Z79.899 Other long term (current) drug therapy; Z79.84 Long term (current) use of oral hypoglycemic drugs; Z79.4 Long term (current) use of insulin; Z68.41 Body mass index [BMI] 40.0-44.9, adult
CPT/HCPCS: 36415; 36600; 71045; 76775; 80048; 80053; 80307; 81001; 82010; 82570; 82805; 82962; 83605; 83880; 84132; 84156; 84484; 85025; 86141; 87040; 87426; 87804; 93306; 93970; 94640; 94644; 94660; 96365; 96375; 99291; 99292; G0378; J1815; J1956